=== PATIENT | male | born 1965 | race Caucasian/White ===

== ENCOUNTER 2023-09-27 09:45 | Outpatient (OUT) | payer OTHER, SELFPAY ==
[2023-09-27 12:19] LABS: Alanine Aminotransferase 23 U/L (16-63); Albumin Globulin Ratio 1.2; Alkaline Phosphatase 74 U/L (46-116); Anion Gap 13.3; Aspartate Amino Transferase 14 U/L (15-37); BUN Creatinine Ratio 18.1; Bilirubin Total 0.9 mg/dL (0.2-1.0); Calcium 9.2 mg/dL (8.5-10.1); Carbon Dioxide 26.5 mmol/L (21.0-32.0); Chloride 104 mmol/L (98-107); Chol HDL Ratio 3.1; Cholesterol 186 mg/dL (<=200); Estimated GFR (African America >60 (>=60); Estimated GFR (Non-African Ame >60 (>=60); Globulin 3.4 g/dL; Glucose 100 mg/dL (74-106); HDL Cholesterol 60 mg/dL (40-60); LDL Cholesterol Calculated 115.2 mg/dL; Potassium 3.8 mmol/L (3.5-5.1); Sodium 140 mmol/L (136-145); Total Protein 7.4 g/dL (6.4-8.2); Triglycerides 54 mg/dL (<=150); Uric Acid 5.1 mg/dL (3.5-7.2); VLDL CHOLESTEROL 10.8 mg/dL
== END 2023-09-27 09:46 | disposition home or self-care (01) ==
LOC: LAB 09:45
PROVIDERS: PCP Family Medicine; Visit Provider Family Medicine
DX: E79.0 Hyperuricemia without signs of inflammatory arthritis and tophaceous disease (principal); Z13.220 Encounter for screening for lipoid disorders; I12.9 Hypertensive chronic kidney disease with stage 1 through stage 4 chronic kidney disease, or unspecified chronic kidney disease; Z13.1 Encounter for screening for diabetes mellitus
CPT/HCPCS: 36415; 80053; 80061; 84550

== ENCOUNTER 2024-10-02 09:59 | Outpatient (OUT) | payer OTHER, SELFPAY ==
--- OUTSIDE RECORDS SUMMARY | 2024-10-02 10:04 | XMS_ITS | CCD ---
Author Organization [facility] Care Team Providers Care Belt Knife Feeder Name Role Phone TAMARA, DR ROSENBAUM Admitting Unavailable HEMEYER, DR ROSENBAUM Attending Unavailable HEMEYER, DR ROSENBAUM Primary Care Unavailable GLENNYYER, DR ROSENBAUM Admitting Unavailable HEMETORI, DR ROSENBAUM Attending Unavailable TAMARA, DR ROSENBAUM Primary Care Unavailable TAMARA, DR ROSENBAUM Consulting Unavailable Gloria Fish Unavailable NONE, XXXX Primary Care Physician Unavailab Dilshad Chaney Attending Unavailable Ilsa Mcdonald MD Primary Care Provider Ilsa Mcdonald MD Primary Care Provider Ilsa Mcdonald MD Primary Care Provider [phone] Ilsa Mcdonald MD Primary Care Provider Ilsa Mcdonald MD Primary Care Provider ILSA MCDONALD Attending ILSA Nuñez Attending Unavailable ILSA MCDONALD Attending Unavailable ILSA MCDONALD Referring Unavailable JR. STORY GEORGE C Attending Unavaila ILSA Cannon Referring Unavailable MONIQUE REA Attending Unavailable JR. STORY GEORGE C Referring Unavaila oren STORY JR., GEORGE C Attending Unavaila oren STORY JR., GEORGE C Referring Unavaila oren STORY JR., GEORGE C Attending Unavaila ble Allergies Allergy Classification Reported Allergen(s) Allergy Type Date of Onset Reaction(s) Facility (2 sources) [facility]; Translations: [nirmatrelvir] Propensity to adverse reactions to drug Eruption of skin (disorder) [facility] (19 sources) Nirmatrelvir-Rit onavir Allergy to substance 3 Rash [facility] (12 sources) Indomethacin Drug Allergy 4 [facility] Medications Current Medications Medication Drug Class(es) Dates Sig (Normalized) Sig (Original) allopurinol 300 mg oral tablet (20 sources) Xanthine Oxidase Inhibitor Start: 10-08-2023 End: 10-11-2024 take 1 tablet by mouth once daily allopurinol (Zyloprim) 300 MG tablet Indications: Hyperuricemia Take 1 tablet (300 mg) by mouth Daily 90 tablet 1 04/06/2024 10/03/2024 Active take 1 tablet by antoinette th every twenty-four hours Allopurinol 300 MG 1 tablet Orally Once a day for 30 day(s) Active colchicine 0.6 mg oral tablet (17 sources) Start: 04-14-2024 colchicine 0.6 MG tablet Indications: Hyperuricemia Take 1 tablet at first sign of gout., then take 1 tablet every hour until improvement or total of 6 tablets. 6 tablet 1 04/14/2024 Active hydrocortisone 10 mg/ml / neomycin 3.5 mg/ml / polymyxin b [id number] unt/ml otic suspension (1 source) Aminoglycoside Antibacterial, Polymyxin-class Antibacterial, Corticosteroid Start: 01-03-2024 End: 01-10-2024 hydrocortisone/octavia mycin/polymyxin B Otic Susp 4 drop(s), Otic, TID for 7 day(s), 10 mL, Refill(s) 0, [facility]/pharmacy #[id number], 184, cm, 01/03/24 12:12:00 EDT, Height/Length Dosing, 110, kg, 01/03/24 12:12:00 EDT, Weight Dosing Start Date: 01/03/24 Stop Date: 01/10/24 Status: Ordered metoprolol tartrate 25 mg oral tablet (20 sources) beta-Adrenergic Susan Start: 10-08-2023 End: 10-11-2024 take 1 tablet by mouth in the morning metoprolol tartrate (Lopressor) 25 MG tablet Indications: Benign essential hypertension (CMS/HCC) Take 1 tablet (25 mg) by mouth in the morning and 1 tablet (25 mg) before bedtime. 180 tablet 1 04/14/2024 10/11/2024 Active Metoprolol Tartrate unknown (1 source) take 1 tablet by mouth twice daily nabumetone 750 mg oral tablet (9 sources) Nonsteroidal Anti-inflammatory Drug Start: 05-13-2024 End: 06-12-2024 take 1 tablet by mouth in the morning nabumetone (Relafen) 750 MG tablet Indications: Bone spur of other site Take 1 tablet (750 mg) by mouth in the morning and 1 tablet (750 mg) before bedtime. 60 tablet 05/13/2024 06/12/2024 Active Completed/Discontinued Medications Medication Drug Class(es) Dates Sig (Normalized) Sig (Original) indomethacin 50 mg oral capsule (3 sources) Nonsteroidal Anti-inflammatory Drug Start: 04-06-2024 End: 04-16-2024 indomethacin (Indocin) 50 MG capsule Indications: Hyperuricemia Take 1 capsule (50 mg) by mouth in the morning and 1 capsule (50 mg) at noon and 1 capsule (50 mg) in the evening. Take with meals. Do all this for 10 days. 30 capsule 04/06/2024 04/16/2024 predniSONE 10 mg oral tablet (4 sources) Start: 04-19-2024 End: 05-12-2024 predniSONE (Deltasone) 10 MG tablet Indications: Allergic reaction to drug, initial encounter Every 2 day tapering dose; 5,5,4,4,3,3,2,2,1,1 ,0.5,0.5 31 tablet 04/19/2024 05/12/2024 Discontinued (Therapy completed) Start: 12-02-2022 take 1 tablet by antoinette th every twelve hours predniSONE 20 MG 1 tablet Orally bid for 5 day(s) November, Active triamcinolone acetonide 40 mg/ml injectable suspension (1 source) Corticosteroid Start: 12-02-2022 Kenalog-40 November, 40 mg Problems Active Problems Problem Classification Problem Date Documented Date Episodic/Chronic Allergic reactions (1 source) Allergic contact dermatitis due to plants, except food Episodic Chronic kidney disease (1 source) Chronic kidney disease, unspecified; Translations: [CHRONIC KIDNEY DISEASE UNSPECIFIED] Onset: 06-12-2022 Chronic Essential hypertension (20 sources) Benign essential hypertension; Translations: [Essential (primary) hypertension] Onset: 03-27-2023 04-06-2024 Chronic Hypertension with complications and secondary hypertension (20 sources) Hypertensive chronic kidney disease with stage 1 through stage 4 chronic kidney disease, or unspecified chronic kidney disease; Translations: [Hypertensive renal disease] Onset: 06-07-2022 Chronic Other circulatory disease (1 source) Elevated blood pressure; Translations: [Elevated blood pressure] Episodic Other connective tissue disease (5 sources) Muscle weakness of limb; Translations: [Other symptoms and signs involving the musculoskeletal system] 05-19-2024 Episodic Other connective tissue disease (5 sources) Pain in limb; Translations: [Pain in unspecified limb] 05-19-2024 Episodic Other connective tissue disease (2 sources) Tendinitis of extensor carpi ulnaris; Translations: [Other enthesopathies, not elsewhere classified] 07-07-2024 Episodic Other ear and sense organ disorders (1 source) Acute non-infective otitis externa; Translations: [Unspecified acute noninfective otitis externa, unspecified ear] Onset: 01-03-2024 Episodic Other nervous system disorders (2 sources) Carpal tunnel syndrome of left wrist; Translations: [Carpal tunnel syndrome, left upper limb] 05-26-2024 Chronic Other nervous system disorders (6 sources) Numbness; Translations: [Anesthesia of skin] 05-19-2024 Episodic Other nervous system disorders (5 sources) Paresthesia; Translations: [Paresthesia of skin] 05-19-2024 Episodic Other non-traumatic joint disorders (8 sources) Osteophyte of bone; Translations: [Enthesopathy, unspecified] 05-13-2024 Episodic Other non-traumatic joint disorders (8 sources) Pain of left wrist; Translations: [Pain in left wrist] 05-12-2024 Episodic Other nutritional; endocrine; and metabolic disorders (1 source) Obese class I; Translations: [Body mass index (BMI) 32.0-32.9, adult] Onset: 01-03-2024 Chronic Other nutritional; endocrine; and metabolic disorders (20 sources) Obesity caused by energy imbalance; Translations: [Other obesity due to excess calories] Onset: 03-30-2024 04-06-2024 Chronic Other nutritional; endocrine; and metabolic disorders (1 source) Hyperuricemia without signs of inflammatory arthritis and tophaceous disease; Translations: [HU W/O SIGNS IA AND TOPHACEOUS DZ] Onset: 06-12-2022 Episodic Other screening for suspected conditions (not mental disorders or infectious disease) (2 sources) Encounter for screening for lipoid disorders; Translations: [Encounter for screening for malignant neoplasm of prostate] Onset: 06-12-2022 Episodic Other upper respiratory infections (1 source) Streptococcal sore throat; Translations: [Streptococcal sore throat] Episodic Sprains and strains (4 sources) Rupture of scapholunate ligament of wrist; Translations: [Sprain of other part of left wrist and hand, initial encounter] 06-09-2024 Episodic Past or Other Problems Problem Classification Problem Date Documented Date Episodic/Chronic Genitourinary symptoms and ill-defined conditions (20 sources) Microalbuminuria; Translations: [Proteinuria, unspecified] Onset: 03-27-2023 04-06-2024 Episodic Other and unspecified benign neoplasm (19 sources) Dermatofibroma of left upper limb; Translations: [Other benign neoplasm of skin of left upper limb, including shoulder] Onset: 03-27-2023 Resolved: 03-30-2024 03-30-2024 Episodic Other diseases of veins and lymphatics (19 sources) Vascular insufficiency; Translations: [Venous insufficiency (chronic) (peripheral)] Onset: 03-27-2023 03-27-2023 Episodic Other nutritional; endocrine; and metabolic disorders (19 sources) Morbid obesity; Translations: [Morbid (severe) obesity due to excess calories] Onset: 03-27-2023 Resolved: 03-30-2024 03-30-2024 Chronic Other nutritional; endocrine; and metabolic disorders (20 sources) Hyperuricemia; Translations: [Hyperuricemia without signs of inflammatory arthritis and tophaceous disease] Onset: 03-27-2023 04-06-2024 Episodic Results Test Name Value Interpretation Reference Range Facil ity MR WRIST LEFT WO IV CONTRAST on 06-28-2024 MR WRIST LEFT WO IV CONTRAST EXAM: MR WRIST LEFT WO IV CONTRAST HISTORY: Left wrist pain. Scapholunate ligament tear. TECHNIQUE: Multiplanar multisequence MRI of the wrist was performed without contrast COMPARISON: Wrist radiographs May 12, 2024 FINDINGS: Scapholunate and lunotriquetral ligaments are intact. Full-thickness tear of the styloid and foveal components of the triangular fibrocartilage complex. Articular disc of the TFCC is intact. Visualized flexor and extensor tendons are intact. A thin hyperintense T2 structure deep to the flexor tendons at the level of the distal radius measures approximately 3 x 0.8 x 3 cm. This is nonspecific and does not surround the flexor tendons. Differential diagnosis includes escaped joint fluid from joint effusion or ganglion. The ulna is internally rotated and the extensor carpi ulnaris tendon is laterally subluxed. Mild regional soft tissue edema. Median nerve is of normal signal and morphology. Mild to moderate degenerative changes of the wrist. Small joint effusion at the articulation of the triquetrum with pisiform with 4 mm loose body located along the proximal margin of the pisiform. IMPRESSION: Scapholunate ligament is intact. Full-thickness tear of the styloid and foveal components of the triangular fibrocartilage complex. Extensor carpi ulnaris subsheath tear with lateral subluxation of the extensor carpi ulnaris tendon. Degenerative changes of the wrist. ELECTRONICALLY SIGNED BY: Faizan Johnson, DO Normal Not Available EMG 1 Extremeityon EMG/ NCS LUE Minimal [facility] 7-8 Nerveson 05-26-2024 EMG/ NCS LUE Minimal left carpal tunnel [facility] XR WRIST 1-2 VIEWS LEFTon XR WRIST 1-2 VIEWS LEFT EXAM: XR - LT WRIST 2 VIEWS REASON FOR STUDY: Left wrist pain COMPARISON: None FINDINGS: 2 views The wrist joint alignment is satisfactory. There is radiocarpal joint space narrowing with some spurring of the scaphoid bone posteriorly and a small corticated ossicle posteriorly at the wrist joint. There is no fracture. Mild diffuse soft tissue swelling. IMPRESSION: Mild wrist soft tissue swelling and degenerative change. No acute fracture. Dictated on: 05/12/2024 4:52 PM This report has been electronically signed and approved by the interpreting Radiologist. Electronically Signed Brendan Calzada D.O. 2024-05-12 16:53:21 Normal Not Available XR Wrist - left 2 Viewson EXAM: XR - LT WRIST 2 VIEWS REASON FOR STUDY: Left wrist pain COMPARISON: None FINDINGS: 2 views The wrist joint alignment is satisfactory. There is radiocarpal joint space narrowing with some spurring of the scaphoid bone posteriorly and a small corticated ossicle posteriorly at the wrist joint. There is no fracture. Mild diffuse soft tissue swelling. IMPRESSION: Mild wrist soft tissue swelling and degenerative change. No acute fracture. Dictated on: 05/12/2024 4:52 PM This report has been electronically signed and approved by the interpreting Radiologist. Electronically Signed Brendan Calzada D.O. 2024-05-12 16:53:21 IMAGING Brendan Calzada DO - 05/12/2024 EXAM: XR - LT WRIST 2 VIEWS REASON FOR STUDY: Left wrist pain COMPARISON: None FINDINGS: 2 views The wrist joint alignment is satisfactory. There is radiocarpal joint space narrowing with some spurring of the scaphoid bone posteriorly and a small corticated ossicle posteriorly at the wrist joint. There is no fracture. Mild diffuse soft tissue swelling. IMPRESSION: Mild wrist soft tissue swelling and degenerative change. No acute fracture. Dictated on: 05/12/2024 4:52 PM This report has been electronically signed and approved by the interpreting Radiologist. Electronically Signed Brendan Calzada D.O. 2024-05-12 16:53:21 [facility] Radiology Study observation (narrative) [facility] XR Wrist - left 2 ViewsOrder ed By: Brendan Calzada on 05-12-2024 [facility] Signifyd[facility] Work Phone: Ambulatory Visit Summaryon 0 01-03-2024 Ambulatory Visit Summary WANDER STERN :1965 Visit Date:01/03/2024 Ambulatory Visit Instructions Your Diagnosis Acute otitis externa BMI 32.0-32.9,adult Your Care Team Attending Physician - Sherman SOTO, Dilshad Aden Primary Care Physician - NONE, XXXX This Is Your Medications List allopurinol (allopurinol 300 mg Tab) hydrocortisone/neomyc in/polymyxin B otic (hydrocortisone/neomy yunier/polymyxin B Otic Susp) metoprolol (Lopressor 25 mg oral tablet) Discharge Vitals Temperature (Oral) 36.4 ?C Heart Rate (Peripheral) 67 Blood Pressure 132/84 Height 184 cm Height 72 in Weight 110 kg Weight 242 lb BMI 32.49 Medications What How Much When Instructions New hydrocortisone/ neomycin/ polymyxin B otic (hydrocortisone/ neomycin/ polymyxin B Otic Susp) 4 Drops Otic 3 times a day Duration: 7 Days Pickup at [facility]/pharmacy #[id number] Unchanged allopurinol (allopurinol 300 mg Tab) Unchanged metoprolol (Lopressor 25 mg oral tablet) Pharmacy Information [facility]/pharmacy #[id number]: [address], [place] [id number] [phone] Allergies Paxlovid (Rash) Patient Survey You may receive a survey via text or e-mail asking about your office visit. Please share your experience with us by completing your survey. We appreciate your feedback and thank you for choosing us for your care. Normal [facility] Family Medicine Office/Clini c Noteon 01-03-2024 Family Medicine Office/Clinic Note Chief Complaint left ear feels plugged HPI Staff 58 year old male presents with left ear feels plugged or like there's water in it since yesterday after swimming used a qtip yesterday after this began denies pain History of Present Illness Patient is a 58-year-old male who comes to the office today due to left ear issues. States that he went swimming yesterday and his left ear been feeling clogged since that time. Also has a little bit of pain to left ear. He used a Q-tip in ear and only got out a little bit of wax. States that it did hurt mildly to use a Q-tip. Right ear feels fine with no issues. He denies URI symptoms such as runny nose, cough, sore throat, headache. No drainage from ear. Does have decreased hearing out of the left ear. Review of Systems PHQ Score Initial Depression Screen Score: 0 SCORE ROS negative unless otherwise stated in HPI. Physical Exam Vitals & Measurements T: 36.4 ?C(Oral) HR: 67(Peripheral) BP: 132/84 SpO2: 97% HT: 72 in HT: 184 cm WT: 110 kg WT: 242 lb BMI: 32.49 General: alert, no acute distress Skin: warm, dry intact Head: atraumatic, normocephalic Neck: Trachea midline, no cervical lymphadenopathy Eye: normal conjunctiva, sclera clear ENMT: oral mucosa moist throat: No erythema, no swelling, no drainage. right ear: EAC clear, TM shows no erythema or bulging. Left ear: EAC is obstructed by wax. Leading up to wax there is some erythema to the EAC with mild swelling. TM could not be viewed. Mild pain to palpation of patient's tragus of left ear Cardiovascular: regular rate and rhythm, nomurmur Respiratory: Lungs CTA, respirations non labored Neurological: oriented x 4, LOC appropriate for age, speech normal Psychiatric: cooperative, affect appropriate for age, Assessment/Plan 1. Acute otitis externa (H60.509: Unspecified acute noninfective otitis externa, unspecified ear) Patient has acute otitis externa of left ear. Went swimming yesterday has been feeling clogged and is a little painful since that time. Patient does have cerumen in ear, but is also erythematous and mildly swollen. Will treat as otitis externa with Cortisporin drops at this time. But patient may need to have ears cleaned out as well to completely relieve sensation of being clogged-however want to wait until infection is cleared. Follow-up as needed if symptoms do not resolve 2. BMI 32.0-32.9,adult (Z68.32: Body mass index [BMI] 32.0-32.9, adult) Orders: hydrocortisone/neomyc in/polymyxin B otic, 4 drop(s), Otic, TID for 7 day(s), 10 mL, Refill(s) 0, [facility]pharmacy #[id number], 184, cm, 01/03/24 12:12:00 EDT, Height/Length Dosing, 110, kg, 01/03/24 12:12:00 EDT, Weight Dosing Follow-up No qualifying data available Problem List/Past Medical History Ongoing No qualifying data Historical No qualifying data Medications allopurinol 300 mg Tab hydrocortisone/neomyc in/polymyxin B Otic Susp, 4 drop(s), Otic, TID Lopressor 25 mg oral tablet Allergies Paxlovid (Rash) Social History Tobacco Never (less than 100 in lifetime) Tobacco Use:. Never Smokeless Tobacco Use:. Household tobacco concerns: No., 01/03/2024 Immunizations Vaccine Date Status influenza virus vaccine, inactivated 04/25/2021 Recorded influenza virus vaccine, inactivated 04/13/2020 Recorded influenza virus vaccine, inactivated 06/09/2018 Recorded Normal [facility] Comment on above: Result Comment: Elec tronically Signed By: Sherman SOTO, iDlshad Aden\.cindy\Date and Time Signed: 01/03/24 12:38 EDT LIPID PROFILEon 06-07-2022 CHOL-HDL RATIO NORM SEE BELOW Normal [facility] Comment on above: Result Comment: 3.3 - 4.4 LOW RISK 4.4 - 7.1 AVERAGE RISK 7.1 - 11.0 MODERATE RISK >11.0 HIGH RISK Performed By: #### C MP, URIC, LIPID #### [facility] [address] [address] [address] Emilia Padilla Cholesterol [Mass/Vol] 189 mg/dL Normal <=200 [facility] Comment on above: Performed By: #### C MP, URIC, LIPID #### [facility] [address] [address] [address] Emilia Padilla Cholesterol in HDL [Mass/Vol] 51 mg/dL Normal 40-60 [facility] Comment on above: Performed By: #### C MP, URIC, LIPID #### [facility] [address] [address] [address] Emilia Padilla Cholesterol in LDL [Mass/Vol] 120.2 mg/dL Normal [facility] Comment on above: Performed By: #### C MP, URIC, LIPID #### [facility] [address] [address] [address] Emilia Padilla Cholesterol.total/ Cholesterol in HDL [Mass ratio] 3.7 {ratio} Normal [facility] Comment on above: Performed By: #### C MP, URIC, LIPID #### [facility] [address] [address] [address] Emilia Padilla HDL NORMAL > or = 60 mg/dl - LO W CARDIOVASCULAR RISK <40 mg/dl - HIGH CARDIOVASCULAR RISK Normal [facility] Comment on above: Performed By: #### C MP, URIC, LIPID #### [facility] [address] [address] [address] Emilia Padilla LDL CALC NORMAL SEE BELOW Normal [facility] Comment on above: Result Comment: <100 mg/dl OPTIMAL 100 - 129 mg/dl NEAR OR ABOVE OPTIMAL 130 - 159 mg/dl BORDERLINE HIGH 160 - 189 mg/dl HIGH >190 mg/dl VERY HIGH Performed By: #### C MP, URIC, LIPID #### [facility] [address] [address] [address] Emilia Padilla Triglyceride [Mass/Vol] 89 mg/dL Normal <=150 [facility] Comment on above: Performed By: #### C MP, URIC, LIPID #### [facility] [address] [address] [address] Emilia Padilla VLDL CALC 17.8 mg/dL Normal [facility] Comment on above: Performed By: #### C MP, URIC, LIPID #### [facility] [address] [address] [address] Emilia Padilla PROF 14(COMP METB)on 022 Albumin [Mass/Vol] 4.0 g/dL Normal 3.4-5.0 [facility] Comment on above: Performed By: #### C MP, URIC, LIPID #### [facility] [address] [place] [address] Dr. Emilia Padilla Albumin/Globulin [Mass ratio] 1.2 {ratio} Normal [facility] Comment on above: Performed By: #### C MP, URIC, LIPID #### [facility] [address] [place] [address] Dr. Emilia Padilla ALP [Catalytic activity/Vol] 81 U/L Normal 46-116 [facility] Comment on above: Performed By: #### C MP, URIC, LIPID #### [facility] [address] [place] [address] Dr. Emilia Padilla ALT [Catalytic activity/Vol] 56 U/L Normal 16-63 [facility] Comment on above: Performed By: #### C MP, URIC, LIPID #### [facility] [address] [address] [address] Emilia Padilla Anion gap [Moles/Vol] 9.2 mmol/L Normal [facility] Comment on above: Performed By: #### C MP, URIC, LIPID #### [facility] [address] [place] [address] Dr. Emilia Padilla AST [Catalytic activity/Vol] 33 U/L Normal 15-37 [facility] Comment on above: Performed By: #### C MP, URIC, LIPID #### [facility] [address] [address] [address] Emilia Padilla Bilirubin [Mass/Vol] 1.0 mg/dL Normal 0.2-1.0 [facility] Comment on above: Performed By: #### C MP, URIC, LIPID #### [facility] [address] [address] [address] Emilia Padilla Calcium [Mass/Vol] 8.9 mg/dL Normal 8.5-10.1 [facility] Comment on above: Performed By: #### C MP, URIC, LIPID #### [facility] [address] [address] [address] Emilia Padilla Chloride [Moles/Vol] 103 mmol/L Normal 98-107 [facility] Comment on above: Performed By: #### C MP, URIC, LIPID #### [facility] [address] [place] [address] Dr. Emilia Padilla CO2 [Moles/Vol] 28.7 mmol/L Normal 21.0-32.0 [facility] Comment on above: Performed By: #### C MP, URIC, LIPID #### [facility] [address] [place] [address] Dr. Emilia Padilla Creatinine [Mass/Vol] 0.84 mg/dL Normal 0.70-1.30 [facility] Comment on above: Performed By: #### C MP, URIC, LIPID #### [facility] [address] [place] [address] Dr. Emilia Padilla EGFR-AF CENTRAL AFRICAN >60 Normal >=60 [facility] Comment on above: Performed By: #### C MP, URIC, LIPID #### [facility] [address] [place] [address] Dr. Emilia Padilla EGFR-NON AF CENTRAL AFRICAN >60 Normal >=60 [facility] Comment on above: Performed By: #### C MP, URIC, LIPID #### [facility] [address] [place] [address] Dr. Emilia Padilla Globulin (S) [Mass/Vol] 3.4 g/dL Normal [facility] Comment on above: Performed By: #### C MP, URIC, LIPID #### [facility] [address] [place] [address] Dr. Emilia Padilla Glucose [Mass/Vol] 104 mg/dL Normal 74-106 [facility] Comment on above: Performed By: #### C MP, URIC, LIPID #### [facility] [address] [place] [address] Dr. Emilia Padilla Potassium [Moles/Vol] 3.9 mmol/L Normal 3.5-5.1 [facility] Comment on above: Performed By: #### C MP, URIC, LIPID #### [facility] [address] [place] [address] Dr. Emilia Padilla Protein [Mass/Vol] 7.4 g/dL Normal 6.4-8.2 [facility] Comment on above: Performed By: #### C MP, URIC, LIPID #### [facility] [address] [place] [address] Dr. Emilia Padilla Sodium [Moles/Vol] 137 mmol/L Normal 136-145 [facility] Comment on above: Performed By: #### C MP, URIC, LIPID #### [facility] [address] [place] [address] Dr. Emilia Padilla Urea nitrogen [Mass/Vol] 11.0 mg/dL Normal 7.0-18.0 [facility] Comment on above: Performed By: #### C MP, URIC, LIPID #### [facility] [address] [place] [address] Dr. Emilia Padilla Urea nitrogen/Creatinin e [Mass ratio] 13.1 mg/mg Normal [facility] Comment on above: Performed By: #### C MP, URIC, LIPID #### [facility] [address] [place] [address] Dr. Emilia Padilla URIC ACID SERUMon 06-07-2022 Urate [Mass/Vol] 5.2 mg/dL Normal 3.5-7.2 [facility] Comment on above: Performed By: #### C MP, URIC, LIPID #### [facility] [address] [place] [address] Dr. Emilia Padilla Vital Signs Date Time Vital Sign Value Performing Clinician Facility 05-19-2024 08:35-0400 Body height 182.9 cm Jr. Stepanic DO Work Phone: [facility] 05-19-2024 08:35-0400 Body mass index (BMI) [Ratio] 31.87 kg/m2 Jr. Stepanic DO Work Phone: [facility] 05-19-2024 08:35-0400 Body weight 106.59 kg Jr. Stepanic DO Work Phone: [facility] 05-12-2024 15:08-0400 Body height 182.9 cm Ilsa Mcdonald MD Work Phone: [facility] 05-12-2024 15:08-0400 Body mass index (BMI) [Ratio] 33.09 kg/m2 Ilsa Mcdonald MD Work Phone: [facility] 05-12-2024 15:08-0400 Body weight 110.68 kg Ilsa Mcdonald MD Work Phone: [facility] 04-14-2024 15:45-0400 Body height 182.9 cm Ilsa Mcdonald MD Work Phone: [facility] 04-14-2024 15:45-0400 Body mass index (BMI) [Ratio] 33.09 kg/m2 Ilsa Mcdonald MD Work Phone: [facility] 04-14-2024 15:45-0400 Body weight 110.68 kg Ilsa Mcdonald MD Work Phone: [facility] 04-14-2024 15:45-0400 Diastolic blood pressure 78 mm[Hg] Ilsa Mcdonald MD Work Phone: [facility] 04-14-2024 15:45-0400 Heart rate 58 /min Ilsa Mcdonald MD Work Phone: [facility] 04-14-2024 15:45-0400 SaO2% (BldA) [Mass fraction] 97 % Ilsa Mcdonald MD Work Phone: [facility] 04-14-2024 15:45-0400 Systolic blood pressure 128 mm[Hg] Ilsa Mcdonald MD Work Phone: [facility] 01-03-2024 12:11-0400 Blood Pressure Location Dilshad Whitaker [facility] 01-03-2024 12:11-0400 Body temperature 97.52 [degF] Dilshad Whitaker [facility] 01-03-2024 12:11-0400 Diastolic blood pressure 84 mm[Hg] Dilshad Whitaker [facility] 01-03-2024 12:11-0400 Heart rate 67 /min Dilshad Whitaker [facility] 01-03-2024 12:11-0400 SaO2% (BldA) [Mass fraction] 97 % Dilshad Whitaker [facility] 01-03-2024 12:11-0400 Systolic blood pressure 132 mm[Hg] Dilshad Whitaker [facility] 12-02-2022 15:40-0400 Body height 182.88 cm Gloria Fish Other [facility] Other 12-02-2022 15:40-0400 Body mass index (BMI) [Ratio] 34.23 kg/m2 Gloria Fish Other [facility] Other 12-02-2022 15:40-0400 Body temperature 97.4 [degF] Gloria Fish Other [facility] Other 12-02-2022 15:40-0400 Body weight 114.49 kg Gloria Fish Other [facility] Other 12-02-2022 15:40-0400 Diastolic blood pressure 96 mm[Hg] Gloria Fish Other [facility] Other 12-02-2022 15:40-0400 Respiratory rate 18 /min Gloria Fish Other [facility] Other 12-02-2022 15:40-0400 SaO2% (BldA) [Mass fraction] 99 % Gloria Fish Other [facility] Other 12-02-2022 15:40-0400 Systolic blood pressure 160 mm[Hg] Gloria Fish Other [facility] Other Encounters Encounter Date Encounter Type Care Provider Facility Start: 07-07-2024 End: 07-07-2024 ambulatory PAULA ARIZA Not Available Start: 07-07-2024 End: 07-07-2024 Office outpatient visit 25 minutes Jr. Paula Story DO Work Phone: [facility] Comment on above: Left wrist pain (Viola selvin Dx); Extensor carpi ulnaris tendinitis Start: 07-07-2024 End: 07-07-2024 Bamboo flowsheet Jr. Paula Story DO Work Phone: [facility] Start: 07-07-2024 End: 07-07-2024 Bamboo flowsheet Jr. Paula Story DO Work Phone: [facility] Start: 06-28-2024 End: 06-28-2024 ambulatory PAULA ARIZA Not Available Start: 06-09-2024 End: 06-09-2024 Office outpatient visit 25 minutes Jr. Paula Story DO Work Phone: [facility] Comment on above: Left wrist pain (Viola selvin Dx); Bone spur of other site; Tear of left scapholunate ligament, initial encounter Start: 06-09-2024 End: 06-09-2024 ambulatory PAULA ARIZA Not Available Start: 06-09-2024 End: 06-09-2024 Bamboo flowsheet Paula Story DO Work Phone: [facility] Start: 06-09-2024 End: 06-09-2024 Bamboo flowsheet Jr. Paula Story DO Work Phone: [facility] Start: 05-26-2024 End: 05-26-2024 Patient encounter procedure Monique Hopkinsner DO Work Phone: [facility] Comment on above: Left carpal tunnel s yndrome (Primary Dx); Limb weakness; Numbness; Paresthesia; Pain in extremity, unspecified extremity Start: 05-26-2024 End: 05-26-2024 ambulatory MONIQUE ÁLVARO Not Available Start: 05-26-2024 End: 05-26-2024 Bamboo flowsheet Monique Álvaro DO Work Phone: [facility] Start: 05-26-2024 End: 05-26-2024 Bamboo flowsheet Monique Rea DO Work Phone: [facility] Start: 05-19-2024 End: 05-19-2024 Bamboo flowsheet Amparo Paula Story DO Work Phone: [facility] Start: 05-19-2024 End: 05-19-2024 Bamboo flowsheet Paula Latham Stepkaty DO Work Phone: [facility] Start: 05-19-2024 End: 05-19-2024 Office consultation new/estab patient 40 min Amparo Paula Latham Stepkaty DO Work Phone: [facility] Comment on above: Limb weakness (Prima ry Dx); Bone spur of other site; Numbness; Paresthesia; Pain in extremity, unspecified extremity Start: 05-19-2024 End: 05-19-2024 ambulatory PAULA ARIZA Not Available Start: 05-13-2024 End: 05-13-2024 Telephone encounter Ilsa Mcdonald MD Work Phone: [facility] Comment on above: Results Start: 05-12-2024 End: 05-12-2024 Office outpatient visit 15 minutes Ilsa Mcdonald MD Work Phone: [facility] Comment on above: Left wrist pain (Viola selvin Dx) Start: 05-12-2024 End: 05-12-2024 ambulatory ILSA MCDONALD Not Available Start: 05-12-2024 End: 05-12-2024 Bamboo flowsheet Ilsa Mcdonald MD Work Phone: [facility] Start: 05-12-2024 End: 05-12-2024 Bamboo flowsheet Ilsa Mcdonald MD Work Phone: [facility] Start: 04-14-2024 End: 04-14-2024 Office outpatient visit 25 minutes Ilsa Mcdonald MD Work Phone: [facility] Comment on above: Benign essential hyp ertension (CMS/HCC); Hypertensive nephropathy (CMS/HCC); Microalbuminuria; Hyperuricemia; Non morbid obesity due to excess calories Start: 04-14-2024 End: 04-14-2024 ambulatory ILSA MCDONALD Not Available Start: 04-14-2024 End: 04-14-2024 Bamboo flowsheet Ilsa Mcdonald MD Work Phone: [facility] Start: 04-14-2024 End: 04-14-2024 Bamboo flowsheet Ilsa Mcdonald MD Work Phone: [facility] Start: 04-06-2024 End: 04-06-2024 Telephone encounter Ilsa Mcdonald MD Work Phone: [facility] Start: 01-03-2024 End: 01-03-2024 ambulatory Dilshad Whitaker Facility: [place] Start: 01-03-2024 End: 01-03-2024 Patient encounter procedure Dilshad Whitaker [facility] Start: 10-08-2023 End: 10-08-2023 ambulatory ILSA MCDONALD Not Available Start: 12-02-2022 End: 12-02-2022 ambulatory Gloria Fish Other [facility] Other Start: 12-02-2022 Office outpatient vi sit 15 minutes Gloria Fish [facility] [place] Start: 06-07-2022 End: 06-08-[address] ILSA MCDONALD Facility:[facility] Start: 03-15-[address] ILSA MCDONALD Facil ity:[facility] Procedures Date Procedure Procedure Detail Performing Clinician Start: 05-26-2024 End: 05-26-2024 Needle emg ea extremty w/paraspinl area complete Monique Rea DO Work Phone: Start: 06-07-[address] ILSA MCDONALD Comment on above: Performed By: #### P [facility] #### [facility] [address] [place] [address] Dr. Emilia Padilla Start: 04-28-2008 Colonoscopy Ilsa jacobsen MD Work Phone: Plan of Treatment Date Care Activity Detail Author Start: 01-04-2027 Screening for malign ant neoplasm of colon [facility] Start: 10-06-2024 End: 10-06-2024 Patient encounter procedure [facility] Start: 09-14-2024 End: 04-14-2025 Comprehensive metabolic 2000 panel - Serum or Plasma Comprehensive metabolic panel Lab Routine Benign essential hypertension (CMS/HCC) Hypertensive nephropathy (CMS/HCC) Expected: 09/14/2024, Expires: 04/14/2025 [facility] Work Phone: Comment on above: Expected: 09/14/2024 , Expires: 04/14/2025 Start: 09-14-2024 End: 04-14-2025 Lipid 1996 panel - Serum or Plasma Lipid panel Lab Routine Benign essential hypertension (CMS/HCC) Hypertensive nephropathy (CMS/HCC) Expected: 09/14/2024, Expires: 04/14/2025 [facility] Comment on above: Expected: 09/14/2024 , Expires: 04/14/2025 Start: 09-14-2024 End: 04-14-2025 Urate [Mass/volume] in Serum or Plasma Uric acid Lab Routine Hyperuricemia Expected: 09/14/2024, Expires: 04/14/2025 [facility] Comment on above: Expected: 09/14/2024 , Expires: 04/14/2025 Start: 07-07-2024 End: 07-07-2024 Patient encounter procedure 07/07/2024 2:45 PM EST Office Visit [facility] [address] [place] [id number] Jr. Paula Stroy, DO [address] [place] [address] [facility] Start: 06-09-2024 End: 06-09-2024 Patient encounter procedure [facility] Comment on above: Arrived Start: 06-09-2024 End: 06-09-2025 MR Wrist - left WO contrast MR wrist left wo IV contrast Imaging Routine Left wrist pain Bone spur of other site Tear of left scapholunate ligament, initial encounter Expected: 06/09/2024 (Approximate), Expires: 06/09/2025 [facility] Work Phone: Comment on above: Expected: 06/09/2024 (Approximate), Expires: 06/09/2025 Start: 05-26-2024 End: 05-26-2024 Patient encounter procedure [facility] Comment on above: Arrived Start: 05-19-2024 End: 05-19-2025 EMG AND NERVE CONDUCTION STUDY EMG AND NERVE CONDUCTION STUDY Neurology Routine Limb weakness Numbness Paresthesia Pain in extremity, unspecified extremity Expected: 05/19/2024 (Approximate), Expires: 05/19/2025 [facility] Work Phone: Comment on above: Expected: 05/19/2024 (Approximate), Expires: 05/19/2025 Start: 05-19-2024 End: 05-19-2024 Patient encounter procedure 05/19/2024 8:30 AM EDT Office Visit [facility] [address] [place] [address] Jr. Paula Story, DO [address] [place] [address] Bone spur of other site [facility] Comment on above: Bone spur of other s ite Start: 05-12-2024 End: 05-12-2024 Patient encounter procedure 05/12/2024 3:15 PM EDT Office Visit [facility] [address] [place] [address] Ilsa Mcdonald MD [address] [place] [address] (Fax) Arrived [facility] Comment on above: Arrived Start: 04-14-2024 End: 04-14-2024 Patient encounter procedure [facility] Comment on above: Benign essential hyp ertension (CMS/HCC); Hypertensive nephropathy (CMS/HCC); Microalbuminuria; Hyperuricemia; Non morbid obesity due to excess calories Start: 03-21-2024 Influenza vaccination Influenza Vacc ine (#1) [facility] Start: 04-28-2018 Screening for malign ant neoplasm of colon Colonoscopy [facility] Start: 1965 Screening for malign ant neoplasm of colon [facility] Immunizations Immunization Date Immunization Notes Care Provider Fa cility 04-25-2021 influenza virus vaccine, unspecified formulation Dilshad Whitaker [facility] 04-25-2021 influenza, seasonal, injectable Ilsa Mcdonald MD Work Phone: [facility] 04-13-2020 influenza virus vaccine, unspecified formulation Dilshad Whitaker [facility] 04-13-2020 influenza, injectabl e, quadrivalent, preservative free Ilsa Mcdonald MD Work Phone: [facility] 06-09-2018 influenza virus vaccine, unspecified formulation Dilshad Whitaker [facility] 06-09-2018 influenza, injectabl e, quadrivalent, preservative free Ilsa Mcdonald MD Work Phone: [facility] Payers Date Payer Category Payer Managed Care HMO (unspecified) [id number] 2023 Private Health Insurance [id number] 1965 Unknown [id number] [id number] 1965 Unknown [id number] 2.16.84 [id number] 1966 Unknown [id number] 1966 Unknown [id number] 1966 Unknown [id number] 1966 Unknown [id number] 1966 Unknown [id number] 1966 Unknown [id number] 1966 Unknown [id number] 1966 Unknown [id number] 1966 Unknown [id number] 1966 Unknown [id number] 1958 Private Health Insurance [id number] 1958 Self-pay Social History Date Type Detail Facility Unknown if ever smoked [facility] Other Start: 03-20-2023 End: 10-08-2023 Sex Assigned At [facility] Start: 10-08-2023 End: 01-03-2024 Tobacco smoking status Never smoked tobacco (finding) [facility] Tobacco smoking status Never [facility] Start: 10-08-2023 Tobacco use and exposure Former smokeless tobacco user [facility] End: 10-20-2011 History of tobacco use Snuff User [facility] Start: 10-08-2023 End: 04-14-2024 Alcoholic beverage intake Current drinker of alcohol (finding) [facility] Start: 03-20-2023 End: 04-14-2024 Alcoholic beverage intake [facility] Within the last year , have you been afraid of your partner or ex-partner? No [facility] Do you belong to any clubs or organizations such as catholic groups, unions, [employer] or athletic groups, or school groups? Yes [facility] Are you now , , , , never or living with a partner? [facility] How often to you hav e a drink containing alcohol? 2-3 time sa week [facility] How many standard dr inks containing alcohol do you have on a typical day? 5 or 6 [facility] How often do you hav e 6 or more drinks on 1 occasion? Monthly [facility] How hard is it for y ou to pay for the very basics like food, housing, medical care, and heating Not very hard [facility] Do you feel stress - tense, restless, nervous, or anxious, or unable to sleep at night because your mind is troubled all the time - these days [OSQ] Not at all [facility] The food that (I/we) bought just didn't last, and (I/we) didn't have money to get more. Never true [facility] Start: 1965 Sex assigned at Not on file [facility] Functional Status Date Assessment Result Facility 01-03-2024 Functional Status N/A [facility] Clinical Notes 12-02-2022 to 07-07-2024 . DO Juliana Reid 07/07/2024 2:45 PM ESTJr. Paula Story, DO - 06/09/2024 3:00 PM MANUELATomasz Keller, ARRT - 05/26/2024 3:30 PM MANUELAJrAmparo Paula Navarrokaty, DO - 05/19/2024 8:30 AM EDT Note Date & Type Note Facility 07-07-2024 History of Presen t illness Narrative Images from the original note were not included. HISTORY OF PRESENT ILLNESS: EST PT Wander Flowers is an 59 y.o. @ male. (EST PT) RECHECK (L) WRIST ; HERE FOR MRI RESULTS 07/08/24 IN [facility]YS 05/12/24 IN [facility] MRI 07/08/24 IN [facility] (L) UE EMG 05/26/24 @ [facility] S/P PREDNISONE TAPER 04/19/24 - PCP ; TEMP RELIEF NO CORTISONE INJ NO PHYSICAL THERAPY NO PAIN MGMT NOTES CONSTANT ACHINESS ; WORSE WITH ACTIVITY / MOVEMENT - STATES HE AVOIDS LIFTING WEIGHTS. NOTES FULL / PAINFUL ROM ; SOME WEAKNESS WHEN GRIPPING. DENIES ANY SWELLING ; CONTINUES TO HAVE SOME N/T IN HIS ENTIRE HAND - WAKES HS. TAKING IBUPROFEN PRN / VOLTAREN GEL - DENIES RELIEF ; HAS RELAFEN RX BUT HAS NOT TRIED YET. ALLERGIES: Allergies Allergen Reactions Indomethacin Rash Paxlovid [Nirmatrelvir-Ritonavir] Rash HOME MEDICATIONS: Current Outpatient Medications Medication Instructions allopurinol (ZYLOPRIM) 300 mg, Oral, Daily colchicine 0.6 MG tablet Take 1 tablet at first sign of gout., then take 1 tablet every hour until improvement or total of 6 tablets. metoprolol tartrate (LOPRESSOR) 25 mg, Oral, 2 times daily PHYSICAL EXAM: Hand/Wrist Musculoskeletal Exam Inspection Left Left hand/wrist inspection is normal. Erythema: none Ecchymosis: none Edema: none Deformity: none Palpation Left Left hand palpation is normal. Palpation additional comments: DENIES PAIN TO PALPATION Triangular fibrocartilage and extensor carpi ulnaris Range of Motion Left Hand Left hand range of motion is normal. Range of motion additional comments: ABLE TO MAKE FULL FIST Positive Doll's maneuver Strength Left Hand Left hand strength is normal. Strength additional comments: 5/5 EQUAL [employer] Neurovascular Left Left neurovascular exam is normal. Radial pulse: normal and 2+ Capillary refill: <3 sec General Constitutional: appears stated age Labored breathing: no Neurological: alert and oriented x3 Skin: intact Lymphadenopathy: none Vitals: There is no height or weight on file to calculate BMI. Tobacco Use: Medium Risk (07/07/2024) Patient History Smoking Tobacco Use: Never Smokeless Tobacco Use: Former Passive Exposure: Not on file Alcohol Use: Alcohol Misuse (03/20/2023) AUDIT-C Frequency of Alcohol Consumption: 2-3 times a week Average Number of Drinks: 5 or 6 Frequency of Binge Drinking: Monthly IMAGING: Procedures No orders of the defined types were placed in this encounter. ASSESSMENT: ICD-10-CM 1. Left wrist pain M25.532 2. Extensor carpi ulnaris tendinitis M77.8 PLAN:We have discussed his case with him at length. We have recommended an appointment with Dr. Adrian for triangulo-fibrocartilage tear and subluxation of the ECU. We have discussed his restrictions and home exercise program. We'll see him back on a when necessary basis. Scapholunate ligament is intact. Full-thickness tear of the styloid and foveal components of the triangular fibrocartilage complex. Extensor carpi ulnaris jim tear with lateral subluxation of the extensor carpi ulnaris tendon. Degenerative changes of the wrist. Probably recommend hand surgery consult. Questions answered in laymen terms at the bedside. The diagnosis, home exercise plan and any ongoing restrictions/ recommendations reviewed. If unable to be reached in office, I recommend evaluation at nearest Emergency Room if any symptoms worsened or new symptoms develop for requiring urgent evaluation. documented in this encounter [facility] 06-09-2024 History of Presen t illness Narrative Images from the original note were not included. HISTORY OF PRESENT ILLNESS: EST PT Wander Flowers is an 59 y.o. @ male. (EST PT) RECHECK (L) WRIST ; HERE FOR (L) UE EMG RESULTS 05/26/24 @ [facility] XRAYS 05/12/24 IN [facility] NO MRI (L) UE EMG 05/26/24 @ [facility] S/P PREDNISONE TAPER 04/19/24 - PCP ; TEMP RELIEF NO CORTISONE INJ NO PHYSICAL THERAPY NO PAIN MGMT ? CONTINUES TO HAVE INTERMITTENT DISCOMFORT ; OCCURS RANDOMLY. NOTES FULL ROM ; SOME WEAKNESS WHEN GRIPPING. DENIES ANY SWELLING ; CONTINUES TO HAVE SOME N/T IN HIS ENTIRE HAND - WAKES HS. TAKING IBUPROFEN PRN / VOLTAREN GEL - DENIES RELIEF ; HAS RELAFEN RX BUT HAS NOT TRIED YET. ALLERGIES: Allergies Allergen Reactions Indomethacin Rash Paxlovid [Nirmatrelvir-Ritonavir] Rash HOME MEDICATIONS: Current Outpatient Medications Medication Instructions allopurinol (ZYLOPRIM) 300 mg, Oral, Daily colchicine 0.6 MG tablet Take 1 tablet at first sign of gout., then take 1 tablet every hour until improvement or total of 6 tablets. metoprolol tartrate (LOPRESSOR) 25 mg, Oral, 2 times daily nabumetone (RELAFEN) 750 mg, Oral, 2 times daily PHYSICAL EXAM: Hand/Wrist Musculoskeletal Exam Inspection Left Left hand/wrist inspection is normal. Erythema: none Ecchymosis: none Edema: none Deformity: none Palpation Left Left hand palpation is normal. Palpation additional comments: DENIES PAIN TO PALPATION OF HAND/ WRIST JOINT Range of Motion Left Hand Left hand range of motion is normal. Range of motion additional comments: ABLE TO MAKE FULL FIST Positive Doll's maneuver Strength Left Hand Left hand strength is normal. Strength additional comments: 5/5 EQUAL [employer]PER[employer]ENGTH Neurovascular Left Left neurovascular exam is normal. Radial pulse: normal and 2+ Capillary refill: <3 sec General Constitutional: appears stated age Labored breathing: no Neurological: alert and oriented x3 Skin: intact Lymphadenopathy: none Vitals: There is no height or weight on file to calculate BMI. Tobacco Use: Medium Risk (06/09/2024) Patient History Smoking Tobacco Use: Never Smokeless Tobacco Use: Former Passive Exposure: Not on file Alcohol Use: Alcohol Misuse (03/20/2023) AUDIT-C Frequency of Alcohol Consumption: 2-3 times a week Average Number of Drinks: 5 or 6 Frequency of Binge Drinking: Monthly IMAGING: Procedures No orders of the defined types were placed in this encounter. ASSESSMENT: ICD-10-CM 1. Left wrist pain M25.532 2. Bone spur of other site M77.9 3. Tear of left scapholunate ligament, initial encounter S63.8X2A PLAN: EMG shows carpal tunnel syndrome. Questions answered in laymen terms at the bedside. The diagnosis, home exercise plan and any ongoing restrictions/ recommendations reviewed. If unable to be reached in office, I recommend evaluation at nearest Emergency Room if any symptoms worsened or new symptoms develop for requiring urgent evaluation. documented in this encounter [facility] 05-26-2024 History of Presen t illness Narrative Images from the original note were not included. Reason for Appointment: EMG Patient: Wander Flowers : 1965 EMG Computer: [facility] Referring Physician: Dr. Paula Story EMG: CRISTINA manager business management: Tomasz Keller RT(R) Office Location: [place] Reason for EMG: c/o numbness/tingling in left hand, pain in left wrist. No hx of DM. Not on blood thinners. Comments: Procedure was explained to the patient who expressed understanding. Patient appeared to have tolerated the test well despite some discomfort due to the nature of the test. documented in this encounter [facility] 05-19-2024 History of Presen t illness Narrative Images from the original note were not included. NAME: Wander Flowers : 1965 HISTORY OF PRESENT ILLNESS: NEW PT Wander Flowers is an 58 y.o. @ male. (DR MCDONALD REFERRAL) NEW PT PRESENTS WITH (L) WRIST PAIN. SYMPTOMS HAVE BEEN INTERMITTENT SINCE FEB 2024 ; DENIES ANY INJURY XRAYS 05/12/24 IN [facility] S/P PREDNISONE TAPER 04/19/24 - PCP ; TEMP RELIEF PAIN IS INTERMITTENT ; OCCURS RANDOMLY - SOME PAIN WHEN LIFTING WEIGHTS. PAIN IS DIFFUSE. NOTES LIMITED ROM ; SOME WEAKNESS WHEN GRIPPING - WEARS WRAPS WHEN LIFTING. DENIES ANY SWELLING. WAKES HS WITH N/T IN HIS ENTIRE HAND. TAKING IBUPROFEN PRN / VOLTAREN GEL - DENIES RELIEF ; HAS RELAFEN RX BUT HAS NOT TRIED YET. PAST MEDICAL HISTORY: Past Medical History: Diagnosis Date Chest pain negative IN Essential hypertension, benign (CMS/HCC) Gout Pain in joint, shoulder region Right bundle branch block 2009 PAST SURGICAL HISTORY: Past Surgical History: Procedure Laterality Date VASECTOMY SOCIAL HISTORY: Social History Occupational History Not on file Tobacco Use Smoking status: Never Smokeless tobacco: Former Types: Snuff Quit date: 10/20/2011 Vaping Use Vaping status: Never Used Substance and Sexual Activity Alcohol use: Yes Alcohol/week: 12.0 standard drinks of alcohol Types: 12 Cans of beer per week Drug use: Never Sexual activity: Yes Partners: Female control/protection: Male Sterilization ALLERGIES: Allergies Allergen Reactions Indomethacin Rash Paxlovid [Nirmatrelvir-Ritonavir] Rash HOME MEDICATIONS: Current Outpatient Medications Medication Instructions allopurinol (ZYLOPRIM) 300 mg, Oral, Daily colchicine 0.6 MG tablet Take 1 tablet at first sign of gout., then take 1 tablet every hour until improvement or total of 6 tablets. metoprolol tartrate (LOPRESSOR) 25 mg, Oral, 2 times daily nabumetone (RELAFEN) 750 mg, Oral, 2 times daily REVIEW OF SYSTEMS: Review of Systems Vitals: Body mass index is 31.87 kg/m . Tobacco Use: Medium Risk (05/19/2024) Patient History Smoking Tobacco Use: Never Smokeless Tobacco Use: Former Passive Exposure: Not on file Alcohol Use: Alcohol Misuse (03/20/2023) AUDIT-C Frequency of Alcohol Consumption: 2-3 times a week Average Number of Drinks: 5 or 6 Frequency of Binge Drinking: Monthly PHYSICAL EXAM: Hand/Wrist Musculoskeletal Exam Inspection Left Erythema: none Ecchymosis: none Edema: mild Deformity: none Hand - prior incision: none Wrist - prior incision: none Palpation Left Wrist tenderness to palpation: carpal canal Range of Motion Left Wrist Active Extension: 50 Passive Extension: 50 Active Flexion: 70 Passive Flexion: 70 Active Radial Deviation: 35 Passive Radial Deviation: 35 Active Ulnar Deviation: 35 Passive Ulnar Deviation: 35 Active Pronation: 60 Passive Pronation: 60 Active Supination: 90 Passive Supination: 90 Strength Left Hand Extensor pollicis longus: 5/5. Abductor pollicis brevis: 5/5. Digital extensors: 5/5. Thumb opposition: 3/5. Finger abduction: 4+/5. 1st dorsal interossei abduction: 5/5. Radial digital flexors: 5/5. Ulnar digital flexors: 5/5. Left Wrist Extension: 5/5. Flexion: 5/5. Radial deviation: 5/5. Ulnar deviation: 5/5. Pronation: 5/5. Supination: 5/5. Neurovascular Left Radial pulse: normal Ulnar pulse: 2+ Capillary refill: brisk Ulnar nerve sensory distribution: normal Ulnar nerve 2 point discrimination (mm): 4 Median nerve sensory distribution: decreased Median nerve 2 point discrimination (mm): 10 Superficial radial nerve sensory distribution: normal Superficial radial nerve 2 point discrimination (mm): 4 Special Tests Left Phalen's: positive Gorge's test: positive Doll's test: negative Loraine's test: negative Froment's sign: negative DRUJ instability: negative Carpal compression test: positive CMC grind test: negative Tinel's - carpal tunnel: positive Tinel's - cubital tunnel: negative Tinel's - Guyon's canal: negative IMAGING: XR wrist 1 or 2 views left EXAM: XR - LT WRIST 2 VIEWS REASON FOR STUDY: Left wrist pain COMPARISON: None FINDINGS: 2 views The wrist joint alignment is satisfactory. There is radiocarpal joint space narrowing with some spurring of the scaphoid bone posteriorly and a small corticated ossicle posteriorly at the wrist joint. There is no fracture. Mild diffuse soft tissue swelling. IMPRESSION: Mild wrist soft tissue swelling and degenerative change. No acute fracture. Dictated on: 05/12/2024 4:52 PM This report has been electronically signed and approved by the interpreting Radiologist. Electronically Signed Brendan Calzada D.O. 2024-05-12 16:53:21 Procedures Orders Placed This Encounter Procedures EMG AND NERVE CONDUCTION STUDY Standing Status: Future Standing Expiration Date: 05/19/2025 Scheduling Instructions: JOSE ; Please call patient to schedule, thank you (L) UE EMG ASSESSMENT: ICD-10-CM 1. Limb weakness R29.898 EMG AND NERVE CONDUCTION STUDY 2. Bone spur of other site M77.9 Ambulatory referral to Orthopaedic Surgery 3. Numbness R20.0 EMG AND NERVE CONDUCTION STUDY 4. Paresthesia R20.2 EMG AND NERVE CONDUCTION STUDY 5. Pain in extremity, unspecified extremity M79.609 EMG AND NERVE CONDUCTION STUDY PLAN: We have answered all the patients questions and explained the patients condition, decision making and plan including the risks and benefits associated with said plan in layman''s terms in a language the patient could understand easily. If patient''s symptoms significantly worsen and they cannot get a hold of us or their family physician, we have recommended that the patient proceed to the nearest emergency department (room). Dr. Story obtained history and examined the patient, I am acting as scribe for Dr. Story/le, PLAN: We have reviewed prior (L) wrist xrays. After examination today we are recommending a (L) UE EMG to r/o carpal tunnel. We are also providing him with a wrist cockup splint today in office to be worn at . We have discussed his HEP and restrictions and will see him back in A left [id number] Wrist Hand Orthosis, Wrist Extension Control Cock-Up, non-molded, prefabricated, off the shelf brace was applied. This brace will be used to immobilize the wrist and allow for full and complete healing of the wrist. The function of the device is to provide support, decrease edema, control motion at wrist joint. The goals of the device are to decrease pain decrease inflammation, increase stability and to allow the patient to continue to use hand and wrist to complete ADLs. The device is medically necessary for the condition, symptoms and diagnosis. It was dispensed and fitted for the patient, and it fit properly. The patient was educated as to proper use and care, and this was reviewed in detail. Written instructions and warranty information were given with the device. A receipt for the device is on file. The current supplier standards were given to the patient. [facility] patient agreement was completed at time of dispensement. The patient stated that the device was comfortable when fitted in the office. At the time of dispensement, the device was suitable and not substandard. Paula Story D.O. documented in this encounter [facility] 05-13-2024 Telephone encount er Note Patient was notified and verbalized understanding. He/She knows to contact office with any further questions. I sent the referral. He would like anti-inflammatory if you can send that in please and he is going to get the gel too while he is there [facility] 05-13-2024 Miscellaneous Notes Formattin g of this note might be different from the original. Patient was notified and verbalized understanding. He/She knows to contact office with any further questions. I sent the referral. He would like anti-inflammatory if you can send that in please and he is going to get the gel too while he is there Celine can you contact him after 230 today that is when he gets off work. I reviewed the report and the x-ray itself and he definitely has a spur and 1 of his wrist bones between the base of the thumb in his forearm. I can see with a spur could be rubbing and causing pain. I would recommend referral to orthopedics he can either see Dr. Story locally or there is a hand specialist [facility] at [facility], but last I knew it was 3-4 months to get into her. We can use some oral anti-inflammatories to try and help control things until he gets taken care of. And other option would be to use [id number]-[id number] diclofenac gel a pea-sized amount rubbed into the area near the spur if he finds the last part of his forearm bone just below the thumb right at the edges where this spur is and if he were just aerobic good pea-sized amount into that area he should get it. documented in this encounter [facility] 05-13-2024 Telephone encount er Note Celine can you contact him after 230 today that is when he gets off work. I reviewed the report and the x-ray itself and he definitely has a spur and 1 of his wrist bones between the base of the thumb in his forearm. I can see with a spur could be rubbing and causing pain. I would recommend referral to orthopedics he can either see Dr. Story locally or there is a hand specialist up at [facility], but last I knew it was 3-4 months to get into her. We can use some oral anti-inflammatories to try and help control things until he gets taken care of. And other option would be to use yjim-imp-bnjmulz diclofenac gel a pea-sized amount rubbed into the area near the spur if he finds the last part of his forearm bone just below the thumb right at the edges where this spur is and if he were just aerobic good pea-sized amount into that area he should get it. [facility] 05-12-2024 History of Presen t illness Narrative Images from the original note were not included. Patient ID: Wander Flowers is a 58 y.o. male who presents for: Wrist Pain Patient complains of left wrist pain. The pain is moderate, worsens with movement, and some relief by prednisone . There is not associated numbness, tingling in the left hand. Pain has been present for several months. There is not a history of injury. He thought it was gout because it felt like gout but Laboratory test demonstrates a relatively low uric acid level which makes this less probable. Review of Systems Constitutional: Negative for chills and fever. Respiratory: Negative for cough, shortness of breath and wheezing. Cardiovascular: Negative for chest pain and palpitations. Gastrointestinal: Negative for abdominal pain. Genitourinary: Negative for frequency and urgency. Objective The patient is pleasant and in no acute distress The patient does not appear to have a gross neurologic deficit. The patient has good eye contact and clear speech The left wrist does have some mild decrease in both flexion and extension. Lateral risk movement increase his pain. He is diffusely tender over the region between the base of his thumb in the radial styloid in the wrist area. There is no isolated anatomic snuffbox tenderness. While he feels it is swollen to my eye it would only be minimally so. There is no increasing calor or rubor. Neurovascularly grossly intact. Visit Vitals Ht 6' Wt 244 lb BMI 33.09 kg/m Smoking Status Never BSA 2.37 m Allergies Allergen Reactions Indomethacin Rash Paxlovid [Nirmatrelvir-Ritonavir] Rash Current Outpatient Medications on File Prior to Visit Medication Sig Dispense Refill allopurinol (Zyloprim) 300 MG tablet Take 1 tablet (300 mg) by mouth Daily 90 tablet 1 colchicine 0.6 MG tablet Take 1 tablet at first sign of gout., then take 1 tablet every hour until improvement or total of 6 tablets. 6 tablet 1 metoprolol tartrate (Lopressor) 25 MG tablet Take 1 tablet (25 mg) by mouth in the morning and 1 tablet (25 mg) before bedtime. 180 tablet 1 No current facility-administered medications on file prior to visit. 1. Left wrist pain (Primary) We discussed and I continue to recommend that he consider icing this and putting it into an [id number]-[id number] wrist splint temporarily. He does actively lift weights. I have asked him to cut the amount of weight back about 50 percent in do more repetition so he does not lose his strength with so we can ease the pressure on the joint. He does note that lifting weights causes worsening of his pain. We have also mutually agreed to proceed with some basic diagnostic imaging. I will call him back consists evaluated. - XR wrist 1 or 2 views left; Future documented in this encounter [facility] 04-14-2024 History of Presen t illness Narrative Images from the original note were not included. Patient ID: Wander Flowers is a 58 y.o. male who presents for: Hypertension Patient is here for follow-up of elevated blood pressure. He is exercising and is adherent to a low-salt diet. Blood pressure is well controlled at home. Cardiac symptoms: none. Patient denies chest pain, dyspnea, irregular heart beat, lower extremity edema, and palpitations. Cardiovascular risk factors: advanced age (older than 55 for men, 65 for women), hypertension, male gender, and obesity (BMI >= 30 kg/m2). Use of agents associated with hypertension: none. History of target organ damage: none. 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 The patient reports no acute gout attacks since last clinic visit. Attacks occur primarily in the right first MTP joint. Patient reports his/her chronic pain is stable, his joint stiffness is stable and his/her joint swelling is stable. Limitation on activities include none. The patient is avoiding high purine foods Review of Systems Constitutional: Negative for activity change and fatigue. Respiratory: Negative for cough, shortness of breath and wheezing. Cardiovascular: Negative for chest pain, palpitations and leg swelling. Neurological: Negative for light-headedness and headaches. Objective The patient is pleasant and in no acute distress. The neck is supple and trachea is midline. No masses are appreciated. The heart is regular rate and rhythm without S3, S4. No murmur. The patient has normal respiratory pattern. The breath sounds are symmetrical without evidence of rhonchi or rales. No wheezing. The skin is warm and dry. The lower extremities have trace edema. The patient has good eye contact and speech is clear. Appropriate affect. Visit Vitals BP 128/78 Pulse 58 Ht 6' Wt 244 lb SpO2 97% BMI 33.09 kg/m Smoking Status Never BSA 2.37 m Allergies Allergen Reactions Paxlovid [Nirmatrelvir-Ritonavir] Rash Current Outpatient Medications on File Prior to Visit Medication Sig Dispense Refill allopurinol (Zyloprim) 300 MG tablet Take 1 tablet (300 mg) by mouth Daily 90 tablet 1 indomethacin (Indocin) 50 MG capsule Take 1 capsule (50 mg) by mouth in the morning and 1 capsule (50 mg) at noon and 1 capsule (50 mg) in the evening. Take with meals. Do all this for 10 days. 30 capsule 0 metoprolol tartrate (Lopressor) 25 MG tablet Take 1 tablet (25 mg) by mouth in the morning and 1 tablet (25 mg) before bedtime. 180 tablet 1 No current facility-administered medications on file prior to visit. 1. Benign essential hypertension (CMS/HCC) Chronic problem, stable, to goal, continue current treatment - metoprolol tartrate (Lopressor) 25 MG tablet; Take 1 tablet (25 mg) by mouth in the morning and 1 tablet (25 mg) before bedtime. Dispense: 180 tablet; Refill: 1 - Comprehensive metabolic panel; Future - Lipid panel; Future - Comprehensive metabolic panel - Lipid panel 2. Hypertensive nephropathy (CMS/HCC) Chronic problem demonstrating end-organ damage from the hypertension. - Comprehensive metabolic panel; Future - Lipid panel; Future - Comprehensive metabolic panel - Lipid panel 3. Microalbuminuria Chronic problem, defining an aspect the nephropathy, with significant risk, uncertain progression requiring longitudinal monitoring, and moderate decision making. Microalbuminuria describes a moderate increase in the level of urine albumin. Normally, the kidneys filter albumin, so if the kidney leaks small amounts of albumin into the urine then it is a indicator of chronic kidney disease. Microalbuminuria is an independent indicator of increased cardiovascular risk among individuals and therefore can be used for risk stratification for cardiovascular disease. 4. Hyperuricemia Chronic problem that is currently stable. He did have a recent episode of gout. In prescribing a renewal to their current medication, consideration of the following encompasses moderate decision making; the current prescriptions and supplements, the current allergies and medication intolerances, current medical conditions, and potential drug interactions. Any changes to risks, benefits, and reason for renewing their current medication due to the above were discussed. The patient was given a chance to ask questions today and all questions were answered. The patient is to contact us if any other questions arise or if any problems occur. (Utilizing the original 1994/1996 guidelines or the 2020 office/outpatient code guidelines for selecting the level of E/M service, In both sets of guidelines, prescription drug management appears in the moderate medical decision making (MDM) row. Neither the original guidelines nor the new guidelines state that a new prescription or change is needed in order to credit prescription drug management) - allopurinol (Zyloprim) 300 MG tablet; Take 1 tablet (300 mg) by mouth Daily Dispense: 90 tablet; Refill: 1 - colchicine 0.6 MG tablet; Take 1 tablet at first sign of gout., then take 1 tablet every hour until improvement or total of 6 tablets. Dispense: 6 tablet; Refill: 1 - Uric acid; Future - Uric acid 5. Non morbid obesity due to excess calories Encouraged lifestyle changes which include an aerobic exercise program. documented in this encounter [facility] 04-06-2024 Telephone encount er Note Allopurinol sent [facility] 04-06-2024 Miscellaneous Notes Formattin g of this note might be different from the original. Allopurinol sent Lawrence schaefer, we had to move his appointment and he is out of his gout medication and is having a flare. He is requesting a refill to [facility] in [place]. documented in this encounter [facility] 04-06-2024 Telephone encount er Note Lawrence called, we had to move his appointment and he is out of his gout medication and is having a flare. He is requesting a refill to [facility] in [place]. [facility] 12-02-2022 Evaluation note Encounter Date Diagnosis Assessment Notes November, Poison xavi dermatitis (ICD-10 - L23.7) Poison xavi allergy home care material was printed Drink plenty fluids, get plenty of rest. Take the prednisone as prescribed until gone starting tomorrow. You may take Benadryl, 25 to 50 mg by mouth for itching. Consider using calamine lotion to the rash. Follow-up with your family physician if no improvement in 2 to 3 days [facility] Other Evaluation + Plan note No data available for this section [facility] Evaluation note* Diagnosis Benign essential hypertension (CMS/HCC) Essential hypertension, benign Hypertensive nephropathy (CMS/HCC) Unspecified hypertensive kidney disease with chronic kidney disease stage I through stage IV, or unspecified Microalbuminuria Proteinuria Hyperuricemia Other abnormal blood chemistry Non morbid obesity due to excess calories documented in this encounter [facility]* Diagnosis Bone spur of other site documented in this encounter [facility]* Diagnosis Left wrist pain- Primary Pain in joint, forearm Left wrist pain Pain in joint, forearm documented in this encounter [facility] note* Diagnosis Limb weakness- Primary Other musculoskeletal symptoms referable to limbs Bone spur of other site Numbness Disturbance of skin sensation Paresthesia Disturbance of skin sensation Pain in extremity, unspecified extremity documented in this encounter [facility]* Diagnosis Left carpal tunnel syndrome- Primary Carpal tunnel syndrome Limb weakness Other musculoskeletal symptoms referable to limbs Numbness Disturbance of skin sensation Paresthesia Disturbance of skin sensation Pain in extremity, unspecified extremity documented in this encounter [facility]* Diagnosis Left wrist pain- Primary Pain in joint, forearm Bone spur of other site Tear of left scapholunate ligament, initial encounter documented in this encounter [facility]* Diagnosis Hyperuricemia Other abnormal blood chemistry Benign essential hypertension (CMS/HCC) Essential hypertension, benign Hypertensive nephropathy (CMS/HCC) Unspecified hypertensive kidney disease with chronic kidney disease stage I through stage IV, or unspecified Microalbuminuria Proteinuria Hyperuricemia Other abnormal blood chemistry Non morbid obesity due to excess calories documented in this encounter [facility] HealthcareEvaluation note* Diagnosis Left wrist pain- Primary Pain in joint, forearm Extensor carpi ulnaris tendinitis documented in this encounter [facility] HealthcareHistory general Narrative - Reported* Type Description Date Medical History HTN Medical History gout Hospitalization History chest pain [facility] Other Hospital Discharge instructions No data available for this section [facility] Progress note No data available for this section [facility] Reason for visit Narrative* Other Medical (Routine) - Closed Specialty Diagnoses / Procedures Referred By Marsha ochoa Referred To Contact Neurology Diagnoses Limb weakness Numbness Paresthesia Pain in extremity, unspecified extremity Procedures EMG AND NERVE CONDUCTION STUDY Jr. Paula Story DO [address] [facility] [address] [place] [address] Phone: tel: fax: Dimitri Quispe MD [id number] [place] [address] Phone: tel: fax: Referral ID Status Reason Start Date Expiration Date V isits Requested Visits Authorized [id number] Closed Perform Procedure 05/19/2024 11/15/2024 1 1 [facility] Healthcare Summary Purpose Family History No Family History Records Found No data available for this section No Family History Records FoundNo Family History Records Found Advance Directives No Advanced Directives Records FoundNo Advanced Directives Records FoundNo Advanced Directives Records Found Additional Source Comments (unrecognized sect ion and content) No Status Records FoundNo Status Records FoundNo Status Records Found INFORMATION SOURCE (unrecogn ized section and content) DATE CREATED AUTHOR 06/12/2022 [facility] DATE CREATED AUTHOR AUTHOR'S ORGANIZ ATION 01/04/2024 [facility] DATE CREATED AUTHOR AUTHOR'S ORGANIZ ATION 07/11/2024 [facility] EPIC REASON FOR VISIT (unrecogniz ed section and content) Reason Onset Date Comments Results 05/13/2024 Reason Comments Wrist Pain Reason Comments Pain Specialty Diagnoses / Procedures Referred By Contact Referred To Contact Orthopaedic Surgery Diagnoses Bone spur of other site Ilsa Mcdonald MD [address] [facility] [address] [place] [address] Phone: tel: fax: Jr. Paula Story DO [address] [facility] [address] [place] [address] Phone: tel: fax: Referral ID Status Reason Start Date Expiration Date V isits Requested Visits Authorized [id number] Closed Specialty Services Required 05/13/2024 11/09/2024 1 1 Care Teams (unrecognized sec tion and content) Belt Knife Feeder Relationship Specialty Start Date End Date Ilsa Mcdonald MD [address] [facility] [address] [place] [address] (Fax) PCP - General Family Medicine 05/20/24 [employer] Knife Feeder Relationship Specialty Start Date End Date Ilsa Mcdonald MD (Fax) PCP - General Family Medicine 01/30/23 [employer] Knife Feeder Relationship Specialty Start Date End Date Ilsa Mcdonald MD [address] [place] [id number] PCP - General Family Medicine 01/30/23 FOR RECORDS PERTAINING TO PATIENTS WHO ARE OR HAVE BEEN ENROLLED IN A CHEMICAL DEPENDENCY/SUBSTANCEABUSE PROGRAM, SOME INFORMATION MAY BE OMITTED. This clinical summary was aggregated from multiple sources. Caution should be exercised in using it in the provision of clinical care. This summary normalizes information from multiple sources, and as a consequence, information in this document may materially change the coding, format and clinical context of patient data. In addition, data may be omitted in some cases. CLINICAL DECISIONS SHOULD BE BASED ON THE PRIMARY CLINICAL RECORDS. [facility]. provides no warranty or guarantee of the accuracy or completeness of information in this document.
[2024-10-02 12:52] LABS: Chloride 103 mmol/L (98-107); Sodium 142 mmol/L (136-145)
[2024-10-02 12:53] LABS: Alanine Aminotransferase 15 U/L (16-63); Albumin Globulin Ratio 1.3; Albumin Level 4.1 g/dL (3.4-5.0); Alkaline Phosphatase 83 U/L (46-116); Anion Gap 17.3; Aspartate Amino Transferase 16 U/L (15-37); Bilirubin Total 1.2 mg/dL (0.2-1.0); Calcium 9.3 mg/dL (8.5-10.1); Carbon Dioxide 25.7 mmol/L (21.0-32.0); Estimated GFR (African America >60 (>=60 mL/min/1.73m^2); Estimated GFR (Non-African Ame >60 (>=60 mL/min/1.73m^2); Globulin 3.1 g/dL; Glucose 106 mg/dL (74-106); Total Protein 7.2 g/dL (6.4-8.2)
[2024-10-02 12:54] LABS: Chol HDL Ratio 2.7; Cholesterol 173 mg/dL (<=200); HDL Cholesterol 65 mg/dL (40-60); Triglycerides 62 mg/dL (<=150); VLDL CHOLESTEROL 12.4 mg/dL
== END 2024-10-02 10:00 | disposition home or self-care (01) ==
LOC: LAB 10:02
PROVIDERS: PCP Family Medicine; Visit Provider Family Medicine
DX: I12.9 Hypertensive chronic kidney disease with stage 1 through stage 4 chronic kidney disease, or unspecified chronic kidney disease (principal); E79.0 Hyperuricemia without signs of inflammatory arthritis and tophaceous disease
CPT/HCPCS: 36415; 80053; 80061; 84550

== ENCOUNTER 2025-01-04 22:14 | Inpatient (IN) | payer OTHER, SELFPAY ==
[2025-01-04] VITALS (11 sets, daily range): BP systolic 136–147; BP diastolic 76–88; PULSE 54; TEMP 37; O2SAT 96–100; BMI 32.5
--- OUTSIDE RECORDS SUMMARY | 2025-01-04 22:19 | XMS_ITS | Clinical Summary ---
Author Organization [facility] Address [address] [place] [address] Care Team Providers Care Door Maker Name Role Phone Donny Sr MD Primary Care Provider [phone] Allergies Active Allergy Reactions Criticality Noted Date Comments Indomethacin Rash Low 05/19/2024 Nirmatrelvir-Ritonavir Rash Low 07/10/2023 Medications allopurinol (Zyloprim) 300 mg tablet Take 300 mg by mouth in the morning. Active metoprolol tartrate (Lopressor) 25 mg tablet TAKE 1 TABLET (25 MG) BY MOUTH IN THE MORNING AND BEFORE BEDTIME Active Active Problems No known active problems Social History Tobacco Use Types Packs/Day Years Used Date Smoking Tobacco: Never Smokeless Tobacco: Never Tobacco Cessation:Counseling Given: Not Answered Humiliation, Afraid, Rape, and Kick questionnair e Answer Date Recorded Within the last year, have y ou been afraid of your partner or ex-partner? No 08/31/2024 Emotionally Abused Not on file 08/31/2024 Physically Abused Not on file 08/31/2024 Sexually Abused Not on file 08/31/2024 PHQ-2 Answer Date Recorded Patient Health Questionnaire-2 Score 0 08/31/2024 Sex and Gender Information Value Date Recorded Sex Assigned at Male 08/31/2024 8:44 AM EST Legal Sex Male 10:35 AM EST Gender Identity Male 08/31/2024 8:44 AM EST Sexual Orientation Heterosexual or Straight 08/21 8:44 AM EST Last Filed Vital Signs Vital Sign Reading Time Taken Comments Blood Pressure - - Pulse - - Temperature - - Respiratory Rate - - Oxygen Saturation - - Inhaled Oxygen Concentration - - Weight 109 kg (240 lb) 08/31/2024 8:48 AM EST Height 182.9 cm (6') 08/31/2024 8:48 AM EST Body Mass Index 32.55 08/31/2024 8:48 AM EST Plan of Treatment Health Maintenance Due Date Last Done Comments CT Colonography 1966 Colonoscopy 1966 FIT-DNA 1966 FOBT 1966 Sigmoidoscopy 1966 Hepatitis B Vaccines (1 of 3 - 19+ 3-dose series) 1985 Adult Tetanus 1988 COVID-19 Vaccine (1 - 2023-2 5 season) 2024 Zoster Vaccines (2 of 2) 10/10/2024 08/15/2024 Colorectal Cancer Screening 01/04/2025 FIT 01/04/2025 01/05/2024 Influenza Vaccine (Season Ended) 2025 04/25/2021, 04/13/2020, 06/09/2018 Depression Screening 08/31/2025 08/31/2024 HIB Vaccines Aged Out No longer eligi ble based on patient's age to complete this topic HPV Vaccines Aged Out No longer eligi ble based on patient's age to complete this topic IPV Vaccines Aged Out No longer eligi ble based on patient's age to complete this topic Meningococcal B Vaccine Aged Out No l onger eligible based on patient's age to complete this topic Meningococcal Vaccine Aged Out No boogie kirk eligible based on patient's age to complete this topic Pneumococcal Vaccine: Pediatrics (0 to 5 Years) and At-Risk Patients (6 to 64 Years) Aged Out No longer eligible b ased on patient's age to complete this topic Rotavirus Vaccines Aged Out No longer eligible based on patient's age to complete this topic Insurance [employer] Care Teams Door Maker Relationship Specialty Start Date End Date Donny Sr MD [address] [place] [address] PCP - General 07/19/24
--- OUTSIDE RECORDS SUMMARY | 2025-01-04 22:19 | XMS_ITS | CCD ---
Author Organization [facility] Care Team Providers Care Quality Control Analyst Name Role Phone TAMARA, DR ROSENBAUM Admitting Unavailable HEMEYER, DR ROSENBAUM Attending Unavailable HEMEYER, DR ROSENBAUM Primary Care Unavailable HEMEYER, DR ROSENBAUM Admitting Unavailable HEMEYER, DR ROSENBAUM Attending Unavailable HEMETORI, DR RSOENBAUM Primary Care Unavailable GLENNYYER, DR ROSENBAUM Consulting Unavailable Gloria Fish Unavailable NONE, XXXX Primary Care Physician Unavailab Dilshad Chaney Attending Unavailable Donny Mcdonald MD Primary Care Provider Donny Mcdonald MD Primary Care Provider Donny Mcdonald MD Primary Care Provider [phone] Donny Mcdonald MD Primary Care Provider Donny Mcdonald MD Primary Care Provider DONNY MCDONALD Attending Unavailable JADA UP Attending Unavailable DONNY MCDONALD Referring Unavailable DONNY MCDONALD Attending Unavailable DONNY MCDONALD Attending Unavailable JADA UP Attending Unavailable JADA UP Attending Unavailable DONNY MCDONALD Referring Unavailable JR. STORY GEORGE C Attending Unavaila ble DONNY MCDONALD Referring Unavailable MONIQUE REA Attending Unavailable JR. STORY GEORGE C Referring Unavaila ble JR. BRIANNE, PAULA Latham Attending Unavaila ble JR. BRIANNE, PAULA Latham Referring Unavaila oren STORY JR., PAULA Latham Attending Unavaila ble Allergies Allergy Classification Reported Allergen(s) Allergy Type Date of Onset Reaction(s) Facility (2 sources) [facility]; Translations: [nirmatrelvir] Propensity to adverse reactions to drug Eruption of skin (disorder) [facility] (20 sources) Nirmatrelvir-Rit onavir Allergy to substance 3 Rash [facility] (20 sources) Indomethacin Drug Allergy 4 Rash [facility] Medications Current Medications Medication Drug Class(es) Dates Sig (Normalized) Sig (Original) allopurinol 300 mg oral tablet (20 sources) Xanthine Oxidase Inhibitor Start: 10-08-2023 End: 04-04-2025 take 1 tablet by mouth once daily allopurinol (Zyloprim) 300 MG tablet Indications: Hyperuricemia Take 1 tablet (300 mg) by mouth Daily 90 tablet 1 10/06/2024 04/04/2025 Active take 1 tablet by antoinette th every twenty-four hours Allopurinol 300 MG 1 tablet Orally Once a day for 30 day(s) Active colchicine 0.6 mg oral tablet (20 sources) Start: 04-14-2024 colchicine 0.6 MG tablet Indications: Hyperuricemia Take 1 tablet at first sign of gout., then take 1 tablet every hour until improvement or total of 6 tablets. 6 tablet 1 04/14/2024 Active hydrocortisone 10 mg/ml / neomycin 3.5 mg/ml / polymyxin b 09164 unt/ml otic suspension (1 source) Aminoglycoside Antibacterial, [...] (20 sources) beta-Adrenergic Susan Start: 10-08-2023 End: 04-04-2025 take 1 tablet by mouth in the morning metoprolol tartrate (Lopressor) 25 MG tablet Indications: Benign essential hypertension Take 1 tablet (25 mg) by mouth in the morning and 1 tablet (25 mg) before bedtime. 180 tablet 1 10/06/2024 04/04/2025 Active Metoprolol Tartrate unknown (1 source) take [...] before bedtime. 60 tablet 05/13/2024 06/12/2024 Active triamcinolone acetonide 1 mg/ml topical cream (10 sources) Corticosteroid Start: 11-01-2024 triamcinolone (Kenalog) 0.1 % cream Indications: Other atopic dermatitis Apply topically 2 (two) times a day as needed for rash 454 g 3 11/01/2024 Active Start: 12-02-2022 Kenalog-40 November, 40 mg Completed/Discontinued Medications Medication Drug Class(es) Dates Sig [...] Orally bid for 5 day(s) November, Active Problems Active Problems Problem Classification Problem Date Documented Date Episodic/Chronic Allergic reactions (2 sources) Atopic dermatitis; Translations: [Other atopic dermatitis] 11-01-2024 Chronic Allergic reactions (1 source) Allergic contact dermatitis [...] AND TOPHACEOUS DZ] Onset: 06-12-2022 Episodic Other nutritional; endocrine; and metabolic disorders (20 sources) Hyperuricemia; Translations: [Hyperuricemia without signs of inflammatory arthritis and tophaceous disease] Onset: 03-27-2023 04-06-2024 Episodic Other screening for suspected conditions (not mental disorders or infectious disease) (2 sources) Encounter for screening for lipoid disorders; Translations: [Encounter for screening for malignant neoplasm of prostate] Onset: 06-12-2022 Episodic Other skin disorders (6 sources) Eruption; Translations: [Rash and other nonspecific skin eruption] 11-01-2024 Episodic Other upper respiratory infections (1 source) [...] 04-06-2024 Episodic Other and unspecified benign neoplasm (20 sources) Dermatofibroma of left upper limb; Translations: [Other benign neoplasm of skin of left upper limb, including shoulder] Onset: 03-27-2023 Resolved: 03-30-2024 03-30-2024 Episodic Other diseases of veins and lymphatics (20 sources) Vascular insufficiency; Translations: [Venous insufficiency (chronic) (peripheral)] Onset: 03-27-2023 03-27-2023 Episodic Other nutritional; endocrine; and metabolic disorders (20 sources) Morbid obesity; Translations: [Morbid (severe) obesity due to excess calories] Onset: 03-27-2023 Resolved: 03-30-2024 03-30-2024 Chronic Results Test Name Value Interpretation Reference Range Facil ity No Panel Informationon 11-22 Type of biopsy: pun h Informed consent: discussed and consent obtained Informed consent comment: The risks and benefits were discussed. Risks include, but are not limited to, bleeding, infection, scarring, pain, & nerve damage. An opportunity to ask questions prior to the procedure was permitted and questions were answered. Patient was prepped and draped in usual sterile fashion: Area cleansed with alcohol. Anesthesia: the lesion was anesthetized in a standard fashion Anesthetic: 1% lidocaine w/ epinephrine 1-100,000 buffered w/ 8.4% NaHCO3 Punch size: 4 mm (A biopsy by punch method was performed using a dermal punch) Suture size: 4-0 Suture type: nylon Suture type comment: Hemostasis was achieved with suture. Suture removal (days): 12 Hemostasis achieved with: suture Outcome: patient tolerated procedure well Post-procedure details: sterile dressing applied and wound care instructions given Post-procedure details comment: Emphasized the need to contact clinic for any signs of infection, uncontrollable bleeding, or complications. Dressing type: bandage Additional details: Amount of lidocaine used: 1.0 cc Number of sutures used: 2 Specimen sent for: H&E Photo taken [facility] Recovers[facility] MR WRIST LEFT WO IV CONTRAST on [...] of the wrist. ELECTRONICALLY SIGNED BY: Faizan Johnson DO Normal Not Available EMG 1 Extremeityon EMG/ NCS LUE Minimal [facility] 7-8 Nerveson 05-26-2024 EMG/ NCS LUE Minimal left carpal tunnel [facility] XR WRIST 1-2 VIEWS LEFTon [...] Electronically Signed Brendan Calzada D.O. 2024-05-12 16:53:21 Brendan Caldwell DO - 05/12/2024 EXAM: XR - LT [...] Electronically Signed Brendan Calzada D.O. 2024-05-12 16:53:21 [facility] [employer] Radiology Study observation (narrative) [facility] [employer] XR Wrist - left 2 ViewsOrder ed By: Brendan Calzada on 05-12-2024 [facility] [employer] Work Phone: Ambulatory Visit Summaryon 0 01-03-2024 Ambulatory Visit Summary WANDER STENR :1965 Visit Date:01/03/2024 Ambulatory Visit Instructions Your [...] a day Duration: 7 Days Pickup at [facility]/pharmacy #[id number] Unchanged allopurinol (allopurinol 300 mg Tab) Unchanged metoprolol (Lopressor 25 mg oral tablet) Pharmacy Information [facility]/pharmacy #[id number]: [address], [place] [id number] [phone] Allergies Paxlovid (Rash) Patient Survey You may receive a survey via text or e-mail asking about your office visit. Please share your experience with us by completing your survey. We appreciate your feedback and thank you for choosing us for your care. Normal [facility] Family Medicine Office/Clini c Noteon 01-03-2024 Family [...] influenza virus vaccine, inactivated 06/09/2018 Recorded Normal [facility] Comment on above: Result Comment: Elec tronically Signed By: Sherman SOTO, Dilshad Aden\.br\Date and Time Signed: 01/03/24 12:38 EDT LIPID PROFILEon 06-07-2022 CHOL-HDL RATIO NORM SEE BELOW Normal [facility] Comment on above: Result Comment: 3.3 - 4.4 LOW RISK 4.4 - 7.1 AVERAGE RISK 7.1 - 11.0 MODERATE RISK >11.0 HIGH RISK Performed By: #### C MP, URIC, LIPID #### [facility] [address] [address] [address] Emilia Padilla Cholesterol [Mass/Vol] 189 mg/dL Normal <=200 [facility] Comment on above: Performed By: #### C MP, URIC, LIPID #### [facility] [address] [address] [address] Emilia Padilla Cholesterol in HDL [Mass/Vol] 51 mg/dL Normal 40-60 [facility] Comment on above: Performed By: #### C MP, URIC, LIPID #### [facility] [address] [address] [address] Emilia Padilla Cholesterol in LDL [Mass/Vol] 120.2 mg/dL Normal [facility] Comment on above: Performed By: #### C MP, URIC, LIPID #### [facility] [address] [address] [address] Emilia Padilla Cholesterol.total/C holesterol in HDL [Mass ratio] 3.7 {ratio} Normal [facility] Comment on above: Performed By: #### C MP, URIC, LIPID #### [facility] [address] [address] [address] Emilia Padilla HDL NORMAL > or = 60 mg/dl - LO W CARDIOVASCULAR RISK <40 mg/dl - HIGH CARDIOVASCULAR RISK Normal [facility] Comment on above: Performed By: #### C MP, URIC, LIPID #### [facility] [address] [address] [address] Emilia Padilla LDL CALC NORMAL SEE BELOW Normal [facility] Comment on above: Result Comment: <100 mg/dl OPTIMAL 100 - 129 mg/dl NEAR OR ABOVE OPTIMAL 130 - 159 mg/dl BORDERLINE HIGH 160 - 189 mg/dl HIGH >190 mg/dl VERY HIGH Performed By: #### C MP, URIC, LIPID #### [facility] [address] [address] [address] Emilia Padilla Triglyceride [Mass/Vol] 89 mg/dL Normal <=150 [facility] Comment on above: Performed By: #### C MP, URIC, LIPID #### [facility] [address] [address] [address] Emilia Padilla VLDL CALC 17.8 mg/dL Normal [facility] Comment on above: Performed By: #### C MP, URIC, LIPID #### [facility] [address] [address] [address] Emilia Padilla PROF 14(COMP METB)on 022 Albumin [Mass/Vol] 4.0 g/dL Normal 3.4-5.0 [facility] Comment on above: Performed By: #### C MP, URIC, LIPID #### [facility] [address] [address] [address] Emilia Padilla Albumin/Globulin [Mass ratio] 1.2 {ratio} Normal [facility] Comment on above: Performed By: #### C MP, URIC, LIPID #### [facility] [address] [address] [address] Emilia Padilla ALP [Catalytic activity/Vol] 81 U/L Normal 46-116 [facility] Comment on above: Performed By: #### C MP, URIC, LIPID #### [facility] [address] [address] [address] Emilia Padilla ALT [Catalytic activity/Vol] 56 U/L Normal 16-63 [facility] Comment on above: Performed By: #### C MP, URIC, LIPID #### [facility] [address] [address] [address] Emilia Padilla Anion gap [Moles/Vol] 9.2 mmol/L Normal [facility] Comment on above: Performed By: #### C MP, URIC, LIPID #### [facility] [address] [address] [address] Emilia Padilla AST [Catalytic activity/Vol] 33 U/L Normal 15-37 [facility] Comment on above: Performed By: #### C MP, URIC, LIPID #### [facility] [address] [address] [address] Emilia Padilla Bilirubin [Mass/Vol] 1.0 mg/dL Normal 0.2-1.0 [facility] Comment on above: Performed By: #### C MP, URIC, LIPID #### [facility] [address] [address] [address] Emilia Padilla Calcium [Mass/Vol] 8.9 mg/dL Normal 8.5-10.1 [facility] Comment on above: Performed By: #### C MP, URIC, LIPID #### [facility] [address] [place] [address] Dr. Emilia Padilla Chloride [Moles/Vol] 103 mmol/L Normal 98-107 [facility] Comment on above: Performed By: #### C MP, URIC, LIPID #### [facility] [address] [place] [address] Dr. Emilia Padilla CO2 [Moles/Vol] 28.7 mmol/L Normal 21.0-32.0 [facility] Comment on above: Performed By: #### C MP, URIC, LIPID #### [facility] [address] [place] [address] Dr. Emilia Padilla Creatinine [Mass/Vol] 0.84 mg/dL Normal 0.70-1.30 [facility] Comment on above: Performed By: #### C MP, URIC, LIPID #### [facility] [address] [place] [address] Dr. Emilia Padilla EGFR-AF PERUVIAN >60 Normal >=60 [facility] Comment on above: Performed By: #### C MP, URIC, LIPID #### [facility] [address] [place] [address] Dr. Emilia Padilla EGFR-NON AF PERUVIAN >60 Normal >=60 [facility] Comment on above: Performed By: #### C MP, URIC, LIPID #### [facility] [address] [place] [address] Dr. Emilia Padilla Globulin (S) [Mass/Vol] 3.4 g/dL Normal [facility] Comment on above: Performed By: #### C MP, URIC, LIPID #### [facility] [address] [place] [address] Dr. Emilia Padilla Glucose [Mass/Vol] 104 mg/dL Normal 74-106 [facility] Comment on above: Performed By: #### C MP, URIC, LIPID #### [facility] [address] [place] [address] Dr. Emilia Padilla Potassium [Moles/Vol] 3.9 mmol/L Normal 3.5-5.1 [facility] Comment on above: Performed By: #### C MP, URIC, LIPID #### [facility] [address] [place] [address] Dr. Emilia Padilla Protein [Mass/Vol] 7.4 g/dL Normal 6.4-8.2 [facility] Comment on above: Performed By: #### C MP, URIC, LIPID #### [facility] [address] [place] [address] Dr. Emilia Padilla Sodium [Moles/Vol] 137 mmol/L Normal 136-145 [facility] Comment on above: Performed By: #### C MP, URIC, LIPID #### [facility] [address] [place] [address] Dr. Emilia Padilla Urea nitrogen [Mass/Vol] 11.0 mg/dL Normal 7.0-18.0 [facility] Comment on above: Performed By: #### C MP, URIC, LIPID #### [facility] [address] [place] [address] Dr. Emilia Padilla Urea nitrogen/Creatinine [Mass ratio] 13.1 mg/mg Normal [facility] Comment on above: Performed By: #### C MP, URIC, LIPID #### [facility] [address] [place] [address] Dr. Emilia Padilla URIC ACID SERUMon 06-07-2022 Urate [Mass/Vol] 5.2 mg/dL Normal 3.5-7.2 [facility] Comment on above: Performed By: #### C MP, URIC, LIPID #### [facility] [address] [place] [address] Dr. Emilia Padilla Vital Signs Date Time Vital Sign Value Performing Clinician Facility 05-19-2024 08:35-0400 Body height 182.9 cm Jr. Stepanic DO Work Phone: [facility] 05-19-2024 08:35-0400 Body mass index (BMI) [Ratio] 31.87 kg/m2 Jr. Stepanic DO Work Phone: [facility] 05-19-2024 08:35-0400 Body weight 106.59 kg Jr. Story DO Work Phone: [facility] 05-12-2024 15:08-0400 Body height 182.9 cm Donny Mcdonald MD Work Phone: [facility] 05-12-2024 15:08-0400 Body mass index (BMI) [Ratio] 33.09 kg/m2 Donny Mcdonald MD Work Phone: [facility] 05-12-2024 15:08-0400 Body weight 110.68 kg Donny Mcdonald MD Work Phone: [facility] 04-14-2024 15:45-0400 Body height 182.9 cm Donny Mcdonald MD Work Phone: [facility] 04-14-2024 15:45-0400 Body mass index (BMI) [Ratio] 33.09 kg/m2 Donny Mcdonald MD Work Phone: [facility] 04-14-2024 15:45-0400 Body weight 110.68 kg Donny Mcdonald MD Work Phone: [facility] 04-14-2024 15:45-0400 Diastolic blood pressure 78 mm[Hg] Donny Mcdonald MD Work Phone: [facility] 04-14-2024 15:45-0400 Heart rate 58 /min Donny Mcdonald MD Work Phone: [facility] 04-14-2024 15:45-0400 SaO2% (BldA) [Mass fraction] 97 % Donny Mcdonald MD Work Phone: [facility] 04-14-2024 15:45-0400 Systolic blood pressure 128 mm[Hg] Donny Mcdonald MD Work Phone: [facility] 01-03-2024 12:11-0400 Blood Pressure Location Dilshad Whitaker [facility] 01-03-2024 12:11-0400 Body temperature 97.52 [degF] Dilshad Whitaker [facility] 01-03-2024 12:11-0400 Diastolic blood pressure 84 mm[Hg] Dilshad Whitaker [facility] 01-03-2024 12:11-0400 Heart rate 67 /min Dilshad Whitaker [facility] 01-03-2024 12:11-0400 SaO2% (BldA) [Mass fraction] 97 % Dilshad Whitaker [facility] 01-03-2024 12:11-0400 Systolic blood pressure 132 mm[Hg] Dilshad Whitaker [facility] 12-02-2022 15:40-0400 Body height 182.88 cm Gloria Fish Other [facility] Other 12-02-2022 15:40-0400 Body mass index (BMI) [Ratio] 34.23 kg/m2 Gloria Fish Other [facility] Other 12-02-2022 15:40-0400 Body temperature 97.4 [degF] Gloria Fish Other [facility] Other 12-02-2022 15:40-0400 Body weight 114.49 kg Gloria Fish Other [facility] Other 12-02-2022 15:40-0400 Diastolic blood pressure 96 mm[Hg] Gloria Fish Other [facility] Other 12-02-2022 15:40-0400 Respiratory rate 18 /min Gloria Fish Other [facility] Other 12-02-2022 15:40-0400 SaO2% (BldA) [Mass fraction] 99 % Gloria Fish Other [facility] Other 12-02-2022 15:40-0400 Systolic blood pressure 160 mm[Hg] Gloria Fish Other [facility] Other Encounters Encounter Date Encounter Type Care Provider Facility Start: 01-04-2025 End: 01-04-2025 Nicole Mcdonald MD Work Phone: [facility] Comment on above: Hyperuricemia; Benign essential hypertension Start: 12-06-2024 End: 12-06-2024 Office outpatient visit 15 minutes Jada A Felter [employer] CLERK-CONTINUOUS IMPROVEMENT CONSULTANT Work Phone: [facility] Comment on above: Rash and other nonsp ecific skin eruption Start: 12-06-2024 End: 12-06-2024 ambulatory JADA A FELTER Not Available Start: 12-06-2024 End: 12-06-2024 Bamboo flowsheet Jada A Felter [employer] CONTRACT CLERK-CONTINUOUS IMPROVEMENT CONSULTANT Work Phone: [facility] Start: 12-06-2024 End: 12-06-2024 Bamboo flowsheet Jada A Felter [employer] CONTRACT CLERK-CONTINUOUS IMPROVEMENT CONSULTANT Work Phone: [facility] Start: 11-22-2024 End: 11-22-2024 Patient encounter procedure Jada A Felter [employer] CONTRACT CLERK-CONTINUOUS IMPROVEMENT CONSULTANT Work Phone: [facility] Comment on above: Rash and other nonsp ecific skin eruption Start: 11-22-2024 End: 11-22-2024 ambulatory JADA A FELTER Not Available Start: 11-22-2024 End: 11-22-2024 Bamboo flowsheet Jada A Felter [employer] CONTRACT CLERK-CONTINUOUS IMPROVEMENT CONSULTANT Work Phone: [facility] Start: 11-22-2024 End: 11-22-2024 Bamboo flowsheet Jada A Felter [employer] CONTRACT CLERK-CONTINUOUS IMPROVEMENT CONSULTANT Work Phone: [facility] Start: 11-01-2024 End: 11-01-2024 Office outpatient new 30 minutes Jada A Felter [employer] CONTRACT CLERK-CONTINUOUS IMPROVEMENT CONSULTANT Work Phone: [facility] Comment on above: Other atopic dermati tis; Rash and other nonspecific skin eruption Start: 11-01-2024 End: 11-01-2024 ambulatory JADA Aden FELTER Not Available Start: 11-01-2024 End: 11-01-2024 Bamboo flowsheet Jada Aden Felter [employer] CONTRACT CLERK-CONTINUOUS IMPROVEMENT CONSULTANT Work Phone: [facility] Start: 11-01-2024 End: 11-01-2024 Bamboo flowsheet Jada Aden Felter [employer] CONTRACT CLERK-CONTINUOUS IMPROVEMENT CONSULTANT Work Phone: [facility] Start: 10-06-2024 End: 10-06-2024 ambulatory DONNY Roman MCDONALD Not Available Start: 07-07-2024 End: 07-07-2024 ambulatory PAULA ARIZA Not Available Start: 07-07-2024 End: 07-07-2024 Office outpatient visit 25 minutes Jr. Paula Story DO Work Phone: [facility] Comment on above: Left wrist pain (Viola selvin Dx); Extensor carpi ulnaris tendinitis Start: 07-07-2024 End: 07-07-2024 Bamboo flowsheet Jr. Paula Story DO Work Phone: [facility] Start: 07-07-2024 End: 07-07-2024 Bamboo flowsheet Jr. Paula Story DO Work Phone: [facility] Start: 06-28-2024 End: 06-28-2024 ambulatory PAULA ARIZA Not Available Start: 06-09-2024 End: 06-09-2024 Office outpatient visit 25 minutes Jr. Paula Story DO Work Phone: [facility] Comment on above: Left wrist pain (Viola selvin Dx); Bone spur of other site; Tear of left scapholunate ligament, initial encounter Start: 06-09-2024 End: 06-09-2024 ambulatory PAULA ARIZA Not Available Start: 06-09-2024 End: 06-09-2024 Bamboo flowsheet Paula Yeison Stepanic DO Work Phone: [facility] Start: 06-09-2024 End: 06-09-2024 Bamboo flowsheet Paula Yeison Stepanic DO Work Phone: [facility] Start: 05-26-2024 End: 05-26-2024 Patient encounter procedure Monique Álvaro DO Work Phone: [facility] Comment on above: Left carpal tunnel s yndrome (Primary Dx); Limb weakness; Numbness; Paresthesia; Pain in extremity, unspecified extremity Start: 05-26-2024 End: 05-26-2024 ambulatory MONIQUE ÁLVARO Not Available Start: 05-26-2024 End: 05-26-2024 Bamboo flowsheet Monique Álvaro DO Work Phone: [facility] Start: 05-26-2024 End: 05-26-2024 Bamboo flowsheet Moniquemagui Rea DO Work Phone: [facility] Start: 05-19-2024 End: 05-19-2024 Bamboo flowsheet JrAmparo Paula Yeison Stepanic DO Work Phone: [facility] Start: 05-19-2024 End: 05-19-2024 Bamboo flowsheet Paula Yeison Stepanic DO Work Phone: [facility] Start: 05-19-2024 End: 05-19-2024 Office consultation new/estab patient 40 min JrAmparo Paula Yeison Stepanic DO Work Phone: [facility] Comment on above: Limb weakness (Prima ry Dx); Bone spur of other site; Numbness; Paresthesia; Pain in extremity, unspecified extremity Start: 05-19-2024 End: 05-19-2024 ambulatory PAULA ARIZA Not Available Start: 05-13-2024 End: 05-13-2024 Telephone encounter Donny Mcdonald MD Work Phone: [facility] Comment on above: Results Start: 05-12-2024 End: 05-12-2024 Office outpatient visit 15 minutes Donny Mcdonald MD Work Phone: [facility] Comment on above: Left wrist pain (Viola montalvo Dx) Start: 05-12-2024 End: 05-12-2024 ambulatory DONNY MCDONALD Not Available Start: 05-12-2024 End: 05-12-2024 Bamboo flowsheet Donny Mcdonald MD Work Phone: [facility] Start: 05-12-2024 End: 05-12-2024 Bamboo flowsheet Donny Mcdonald MD Work Phone: [facility] Start: 04-14-2024 End: 04-14-2024 Office outpatient visit 25 minutes Donny Mcdonald MD Work Phone: [facility] Comment on above: Benign essential hyp ertension (CMS/HCC); Hypertensive nephropathy (CMS/HCC); Microalbuminuria; Hyperuricemia; Non morbid obesity due to excess calories Start: 04-14-2024 End: 04-14-2024 ambulatory DONNY MCDONALD Not Available Start: 04-14-2024 End: 04-14-2024 Bamboo flowsheet Donny Mcdonald MD Work Phone: [facility] Start: 04-14-2024 End: 04-14-2024 Bamboo flowsheet Donny Mcdonald MD Work Phone: [facility] Start: 04-06-2024 End: 04-06-2024 Telephone encounter Donny Mcdonald MD Work Phone: [facility] Start: 01-03-2024 End: 01-03-2024 ambulatory Dilshad Whitaker Facility: [facility] Start: 01-03-2024 End: 01-03-2024 Patient encounter procedure Dilshad Whitaker [facility] Start: 12-02-2022 End: 12-02-2022 ambulatory Gloria Fish Other [employer] Other Start: 12-02-2022 Office outpatient vi sit 15 minutes Gloria Fish [facility] Start: 06-07-2022 End: 06-08-[address] DONNY MCDONALD Facility:H1 Start: 03-15-[address] DONNY MCDONALD Facil ity:H1 Procedures Date Procedure Procedure Detail Performing Clinician Start: 11-22-2024 SKIN / NAIL BIOPSY Maia 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 Work Phone: Start: 05-26-2024 End: 05-26-2024 Needle emg ea extremty w/paraspinl area complete Monique Rea DO Work Phone: Start: 06-07-[address] DONNY MCDONALD Comment on above: Performed By: #### P [facility] #### [facility] [address] [place] [address] Dr. Emilia Padilla Start: 04-28-2008 Colonoscopy Donny jacobsen MD Work Phone: Plan of Treatment Date Care Activity Detail Author Start: 01-04-2027 Screening for malignant neoplasm of colon [facility] Start: 10-31-2025 End: 10-31-2025 Patient encounter procedure 10/31/2025 3:05 PM EDT Office Visit [facility] [address] [place] [phone] Jada 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 [address] [place] [address] [facility] Start: 06-09-2025 End: 06-09-2025 Patient encounter procedure 06/09/2025 3:25 PM EST Office Visit [facility] [address] [place] [phone] Jada Up, AUTOMOBILE CONTRACT CLERK-CONTINUOUS IMPROVEMENT CONSULTANT [address] [place] [address] [facility] Start: 04-06-2025 End: 04-06-2025 Patient encounter procedure 04/06/2025 4:00 PM EDT Office Visit [facility] [address] [place] [address] Donny Mcdonald MD [address] [place] [address] (Fax) [facility] Start: 03-21-2025 Influenza vaccination Influenza Vaccine (Season Ended) [facility] Start: 12-06-2024 End: 12-06-2024 Patient encounter procedure [facility] Comment on above: Arrived Start: 11-22-2024 End: 11-22-2024 Patient encounter procedure 11/22/2024 3:55 PM EDT Office Visit [facility] [address] [place] [phone] Jada Up, AUTOMOBILE CONTRACT CLERK-CONTINUOUS IMPROVEMENT CONSULTANT [address] [place] [address] Arrived [facility] Comment on above: Arrived Start: 11-01-2024 End: 11-01-2024 Patient encounter procedure 11/01/2024 3:35 PM EDT Office Visit [facility] [address] [place] [phone] Jada Up, AUTOMOBILE CONTRACT CLERK-CONTINUOUS IMPROVEMENT CONSULTANT [address] [place] [address] Desquamated skin; Rash [facility] Comment on above: Desquamated skin; Rash Start: 10-06-2024 End: 10-06-2024 Patient encounter procedure [facility] Start: 09-14-2024 End: 04-14-2025 Comprehensive metabolic 2000 panel - Serum or Plasma Comprehensive metabolic panel Lab Routine Benign essential hypertension (CMS/HCC) Hypertensive nephropathy (CMS/HCC) Expected: 09/14/2024, Expires: 04/14/2025 [facility] Work Phone: Comment on above: Expected: 09/14/2024, Expires: Start: 09-14-2024 End: 04-14-2025 Lipid 1996 panel - Serum or Plasma Lipid panel Lab Routine Benign essential hypertension (CMS/HCC) Hypertensive nephropathy (CMS/HCC) Expected: 09/14/2024, Expires: 04/14/2025 [facility] Comment on above: Expected: 09/14/2024, Expires: Start: 09-14-2024 End: 04-14-2025 Urate [Mass/volume] in Serum or Plasma Uric acid Lab Routine Hyperuricemia Expected: 09/14/2024, Expires: 04/14/2025 [facility] Comment on above: Expected: 09/14/2024, Expires: Start: 07-07-2024 End: 07-07-2024 Patient encounter procedure 07/07/2024 2:45 PM EST Office Visit [facility] [address] [place] [address] Jr. Paula Story, DO [address] [place] [address] [facility] Start: 06-09-2024 End: 06-09-2024 Patient encounter procedure [facility] Comment on above: Arrived Start: 06-09-2024 End: 06-09-2025 MR Wrist - left WO contrast MR wrist left wo IV contrast Imaging Routine Left wrist pain Bone spur of other site Tear of left scapholunate ligament, initial encounter Expected: 06/09/2024 (Approximate), Expires: 06/09/2025 [facility] Work Phone: Comment on above: Expected: 06/09/2024 (Approximate), Expi res: 06/09/2025 Start: 05-26-2024 End: 05-26-2024 Patient encounter procedure [facility] Comment on above: Arrived Start: 05-19-2024 End: 05-19-2025 EMG AND NERVE CONDUCTION STUDY EMG AND NERVE CONDUCTION STUDY Neurology Routine Limb weakness Numbness Paresthesia Pain in extremity, unspecified extremity Expected: 05/19/2024 (Approximate), Expires: 05/19/2025 [facility] Work Phone: Comment on above: Expected: 05/19/2024 (Approximate), Expi res: 05/19/2025 Start: 05-19-2024 End: 05-19-2024 Patient encounter procedure 05/19/2024 8:30 AM EDT Office Visit [facility] [address] [place] [phone] Jr. Paula Story, DO [address] [place] [address] Bone spur of other site [facility] Comment on above: Bone spur of other site Start: 05-12-2024 End: 05-12-2024 Patient encounter procedure 05/12/2024 3:15 PM EDT Office Visit [facility] [address] [place] [address] Donny Mcdonald MD [address] [facility] [place] [address] (Fax) Arrived [facility] Comment on above: Arrived Start: 04-14-2024 End: 04-14-2024 Patient encounter procedure [facility] Comment on above: Benign essential hypertension (CMS/HCC); Hypertensive nephropathy (CMS/HCC); Microalbuminuria; Hyperuricemia; Non morbid obesity due to excess calories Start: 03-21-2024 Influenza vaccination Influenza Vaccine (#1) [facility] Start: 04-28-2018 Screening for malignant neoplasm of colon Colonoscopy [facility] Start: 1965 Screening for malignant neoplasm of colon [facility] Dermatopathology exam Dermatopat hology exam Pathology and Cytology Timed Rash and other nonspecific skin eruption Release Upon Ordering for 1 Occurrences starting 11/22/2024 [facility] Work Phone: Comment on above: Release Upon Ordering for 1 Occurrences starting 11/22/2024 Immunizations Immunization Date Immunization Notes Care Provider Wen magdaleno 08-15-2024 zoster vaccine recombinant Jada 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 Work Phone: [facility] 10-06-2021 influenza virus vaccine, unspecified formulation Dilshad Whitaker [facility] 04-25-2021 influenza, seasonal, injectable Donny Mcdonald MD Work Phone: [facility] 04-13-2020 influenza virus vaccine, unspecified formulation Dilshad Whitaker [facility] 04-13-2020 influenza, injectabl e, quadrivalent, preservative free Donny Mcdonald MD Work Phone: [facility] 06-09-2018 influenza virus vaccine, unspecified formulation Dilshad Whitaker [facility] 06-09-2018 influenza, injectabl e, quadrivalent, preservative free Donny Mcdonald MD Work Phone: [facility] Payers Date Payer Category Payer Managed Care O (unspecified) [id number] 2023 Private Health Insurance [id number] 1965 Unknown [id number] 2.16.84 [id number] 1965 Unknown [id number] 2.16.84 [id number] 1966 Unknown [id number] [id number] 1966 Unknown [id number] [id number] 1966 Unknown [id number] [id number] 1966 Unknown [id number] [id number] 1966 Unknown [id number] [id number] 1966 Unknown [id number] [id number] 1966 Unknown [id number] [id number] 1966 Unknown [id number] 2.16.840.1.514092.3.579.2.9 1966 Unknown [id number] [id number] 1966 Unknown [id number] [id number] 1966 Unknown [id number] [id number] 1966 Unknown [id number] [id number] 1966 Unknown [id number] 1958 Private Health Insurance [id number] 1958 Self-pay Social History Date Type Detail Facility Unknown if ever smoked [facility]istence [facility] Other Start: 03-20-2023 End: 09-29-2024 Sex Assigned At [facility] Start: 10-08-2023 End: 01-03-2024 Tobacco smoking status Never smoked tobacco (finding) [facility] Tobacco smoking status Never [facility] Start: 10-08-2023 Tobacco use and exposure Former smokeless tobacco user [facility] End: 10-20-2011 History of tobacco use Snuff User [facility] Start: 04-14-2024 End: 12-06-2024 Alcoholic beverage intake Current drinker of alcohol (finding) [facility] Start: 04-14-2024 End: 09-29-2024 Alcoholic beverage intake [facility] Within the last year , have you been afraid of your partner or ex-partner? No [facility] Do you belong to any clubs or organizations such as alevism groups, unions, fraternal or athletic groups, or school groups? Yes [...] assigned at Not on file [facility] How often do you nee d to have someone help you when you read instructions, pamphlets, or other written material from your doctor or pharmacy [SILS] Never [facility] Do you feel stress - tense, restless, nervous, or anxious, or unable to sleep at night because your mind is troubled all the time - these days [OSQ] Only a little [facility] Functional Status Date Assessment Result Facility 01-03-2024 Functional Status N/A [facility] Clinical Notes 12-02-2022 to 12-06-2024 JOSE Barboza - 12/06/2024 3:50 PM Jose Alberto Up [facility] - 11/22/2024 3:55 PM [facility] 11/01/2024 3:35 PM CASSIE Morin - 05/26/2024 3:30 PM EST Note Date & Type Note Facility 12-06-2024 History of Presen t illness Narrative Follow up Diagnosis: Rash unspecified. Drug eruption vs. Atopic Dermatitis Location: Trunk, and legs Last visit: 11/22/2024 Symptoms: None Status: Much improved Procedure performed: Punch biopsy Current treatment: Here today for pathology results and treatment Suture Removal Patient here for suture removal: No complaints of redness, drainage or swelling at site, compliant with wound care. Location: Right lower back All pertinent medical history, medications, and allergies were reviewed. General Exam: alert, oriented to person, place, and time, normal affect, well appearing A focused exam completed based on patient reported problems, see below: Skin Exam 1. RASH AND OTHER NONSPECIFIC SKIN ERUPTION Right lower back Clear today secondary to use of TAC Drug eruption vs. Atopic Dermatitis. If drug eruption, likely culprit is Allopurinol. Recommended broad spectrum sunscreen with SPF 30 or higher as this medication has a sun sensitivity profile. Atopic Dermatitis- Recommended Soap and Moisturizer handout given. For flares, plan to continue use of TAC 0.1% cream bid/prn. Follow up in six months. Next Visit: 6 months, follow up rash documented in this encounter [facility] 11-22-2024 History of Presen t illness Narrative Images from the original note were not included. Rash Location: back, legs Duration: months Severity: moderate Quality: itchy, denies burning Modifying Factors: none Associated symptoms: redness, bumps Current treatments: here for follow up, was told to call at last appt if rash reappeared Established patient All pertinent medical history, medications, and allergies were reviewed. General Exam: alert, oriented to person, place, and time, normal affect, well appearing Unaccompanied A focused exam completed based on patient reported problems, see below: Skin Exam 1. RASH AND OTHER NONSPECIFIC SKIN ERUPTION Right lower back [place] patches and plaques Lesion biopsy - Right lower back Type of biopsy: punch Informed consent: discussed and consent obtained Informed consent comment: The risks and benefits were discussed. Risks include, but are not limited to, bleeding, infection, scarring, pain, & nerve damage. An opportunity to ask questions prior to the procedure was permitted and questions were answered. Patient was prepped and draped in usual sterile fashion: Area cleansed with alcohol. Anesthesia: the lesion was anesthetized in a standard fashion Anesthetic: 1% lidocaine w/ epinephrine 1-100,000 buffered w/ 8.4% NaHCO3 Punch size: 4 mm (A biopsy by punch method was performed using a dermal punch) Suture size: 4-0 Suture type: nylon Suture type comment: Hemostasis was achieved with suture. Suture removal (days): 12 Hemostasis achieved with: suture Outcome: patient tolerated procedure well Post-procedure details: sterile dressing applied and wound care instructions given Post-procedure details comment: Emphasized the need to contact clinic for any signs of infection, uncontrollable bleeding, or complications. Dressing type: bandage Additional details: Amount of lidocaine used: 1.0 cc Number of sutures used: 2 Specimen sent for: H&E Photo taken Specimen A - Dermatopathology exam Differential Diagnosis: Drug eruption vs other Next Visit: 12 day s/r and follow up documented in this encounter [facility] 11-01-2024 History of Presen t illness Narrative Rash Location: generalized Duration: years Quality: itchy at times Associated symptoms: red Treatments tried: Prednisone Current treatments: none Patient states he's clear today. He states the rash appears when he is sick. Other Problem: peeling of the skin Location: hands Duration: 1-2 years Current treatment: none New patient All pertinent medical history, medications, and allergies were reviewed. General Exam: alert, oriented to person, place, and time, normal affect, well appearing Unaccompanied A focused exam completed based on patient reported problems, see below: Skin Exam 1. OTHER ATOPIC DERMATITIS Hands Scaly erythematous plaques +/- dyspigmentation, lichenification, excoriations. Clear today. Discussed that atopic dermatitis is a chronic condition that can be controlled but not cured. Start TAC 0.1 % cream bid prn when flared, hold if smooth/asymptomatic. Encouraged daily moisturizing and gentle cleansers to prevent flares. Notify office if flaring despite treatment. Plan to follow up in 1 year. triamcinolone (Kenalog) 0.1 % cream - Hands Apply topically 2 (two) times a day as needed for rash 2. RASH AND OTHER NONSPECIFIC SKIN ERUPTION Generalized Clear today. Advised patient to call for same day appointment if rash reappears. Related Procedures Ambulatory referral to Dermatology Next Visit: 1 year, follow up documented in this encounter [facility] 07-07-2024 History of Presen t illness Narrative Images from the original note were not included. HISTORY OF PRESENT ILLNESS: EST PT Wander Flowers is an 59 y.o. @ male. (EST PT) RECHECK (L) WRIST ; HERE FOR MRI RESULTS 07/08/24 IN [facility] XRAYS 05/12/24 IN [facility] MRI 07/08/24 IN [facility] (L) UE EMG 05/26/24 @ [facility] S/P [...] is normal. 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 documented in this encounter [facility] 06-09-2024 History of Presen t illness Narrative Images from the original note were not included. HISTORY OF PRESENT ILLNESS: EST PT Wander Flowers is an 59 y.o. @ male. (EST PT) RECHECK (L) WRIST ; HERE FOR (L) UE EMG RESULTS 05/26/24 @ [facility] XRAYS 05/12/24 IN [facility] NO MRI (L) UE EMG 05/26/24 @ [...] is normal. 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 documented in this encounter [facility] 05-26-2024 History of Presen t illness Narrative Images from the original note were not included. Reason for Appointment: EMG Patient: Wander Flowers : 1965 EMG Computer: [employer] Referring Physician: Dr. Paula Story EMG: CRISTINA congressional assistant: Tomasz Keller RT(R) Office Location: [place] Reason for EMG: c/o numbness/tingling in left hand, pain in left wrist. No hx of DM. Not on blood thinners. Comments: Procedure was explained to the patient who expressed understanding. Patient appeared to have tolerated the test well despite some discomfort due to the nature of the test. documented in this encounter [facility] 05-19-2024 History of Presen t illness Narrative [...] Medical History: Diagnosis Date Chest pain negative AR Essential hypertension, benign (CMS/HCC) Gout Pain in [...] supplier standards were given to the patient. [facility] patient agreement was completed at time of dispensement. The patient stated that the device was comfortable when fitted in the office. At the time of dispensement, the device was suitable and not substandard. Paula Story D.O. documented in this encounter [facility] 05-13-2024 Telephone encount er Note Patient was notified and verbalized understanding. He/She knows to contact office with any further questions. I sent the referral. He would like anti-inflammatory if you can send that in please and he is going to get the gel too while he is there [facility] 05-13-2024 Miscellaneous Notes Formattin g of this [...] And other option would be to use xfrt-efr-apwwojw diclofenac gel a pea-sized amount rubbed into the area near the spur if he finds the last part of his forearm bone just below the thumb right at the edges where this spur is and if he were just aerobic good pea-sized amount into that area he should get it. documented in this encounter [facility] 05-13-2024 Telephone encount er Note Celine can [...] And other option would be to use wily-mwj-mwgubnf diclofenac gel a pea-sized amount rubbed into the area near the spur if he finds the last part of his forearm bone just below the thumb right at the edges where this spur is and if he were just aerobic good pea-sized amount into that area he should get it. [facility] 05-12-2024 History of Presen t illness Narrative [...] icing this and putting it into an iivj-sbk-mkojqmi wrist splint temporarily. He does actively lift [...] views left; Future documented in this encounter [facility] 04-14-2024 History of Presen t illness Narrative [...] if any problems occur. (Utilizing the original guidelines or the 2020 office/outpatient code guidelines [...] aerobic exercise program. documented in this encounter [facility] 04-06-2024 Telephone encount er Note Allopurinol sent [facility] 04-06-2024 Miscellaneous Notes Formattin g of this note might be different from the original. Allopurinol sent Lawrence called, we had to move his appointment and he is out of his gout medication and is having a flare. He is requesting a refill to [facility] in [place]. documented in this encounter [facility] 04-06-2024 Telephone encount er Note Lawrence called, we had to move his appointment and he is out of his gout medication and is having a flare. He is requesting a refill to [facility] in [place]. [facility] 12-02-2022 Evaluation note Encounter Date Diagnosis Assessment [...] no improvement in 2 to 3 days Existence Before [facility] Other Evaluation + Plan note No data available for this section [facility] Evaluation note* Diagnosis Benign essential hypertension (CMS/HCC) Essential hypertension, benign Hypertensive nephropathy (CMS/HCC) Unspecified hypertensive kidney disease with chronic kidney disease stage I through stage IV, or unspecified Microalbuminuria Proteinuria Hyperuricemia Other abnormal blood chemistry Non morbid obesity due to excess calories documented in this encounter [facility]* Diagnosis Bone spur of other site documented in this encounter [facility]* Diagnosis Left wrist pain- Primary Pain in joint, forearm Left wrist pain Pain in joint, forearm documented in this encounter [facility]* Diagnosis Limb weakness- Primary Other musculoskeletal symptoms referable to limbs Bone spur of other site Numbness Disturbance of skin sensation Paresthesia Disturbance of skin sensation Pain in extremity, unspecified extremity documented in this encounter [facility]* Diagnosis Left carpal tunnel syndrome- Primary Carpal tunnel syndrome Limb weakness Other musculoskeletal symptoms referable to limbs Numbness Disturbance of skin sensation Paresthesia Disturbance of skin sensation Pain in extremity, unspecified extremity documented in this encounter [facility]* Diagnosis Left wrist pain- Primary Pain in joint, forearm Bone spur of other site Tear of left scapholunate ligament, initial encounter documented in this encounter [facility]* Diagnosis Hyperuricemia Other abnormal blood chemistry Benign essential hypertension (CMS/HCC) Essential hypertension, benign Hypertensive nephropathy (CMS/HCC) Unspecified hypertensive kidney disease with chronic kidney disease stage I through stage IV, or unspecified Microalbuminuria Proteinuria Hyperuricemia Other abnormal blood chemistry Non morbid obesity due to excess calories documented in this encounter [facility]* Diagnosis Left wrist pain- Primary Pain in joint, forearm Extensor carpi ulnaris tendinitis documented in this encounter [facility]* Diagnosis Other atopic dermatitis Rash and other nonspecific skin eruption documented in this encounter [facility]* Diagnosis Rash and other nonspecific skin eruption documented in this encounter [facility]* Diagnosis Rash and other nonspecific skin eruption documented in this encounter [facility]* Diagnosis Hyperuricemia Other abnormal blood chemistry Benign essential hypertension Essential hypertension, benign documented in this encounter [facility] general Narrative - Reported* Type Description Date Medical History HTN Medical History gout Hospitalization History chest pain Existence Before [facility] Other Hospital Discharge instructions No data available for this section [facility] Progress note No data available for this section [facility] Reason for visit Narrative* Other Medical (Routine) - Closed Specialty Diagnoses / Procedures Referred By Contac t Referred To Contact Neurology Diagnoses Limb weakness Numbness Paresthesia Pain in extremity, unspecified extremity Procedures EMG AND NERVE CONDUCTION STUDY Jr. Paula Story DO [address] [facility] [address] [place] [address] Phone: tel: fax: Dimitri Quispe MD [address] [place] [address] Phone: tel: fax: Referral ID Status Reason Start Date Expiration Date V isits Requested Visits Authorized [id number] Closed Perform Procedure 05/19/2024 11/15/2024 1 1 [facility] Summary Purpose Family History No [...] and content) DATE CREATED AUTHOR 06/12/2022 [facility] DATE CREATED AUTHOR AUTHOR'S ORGANIZ ATION 01/04/2024 Noble Octaviano [facility] DATE CREATED AUTHOR AUTHOR'S ORGANIZ ATION 12/07/2024 [facility] dical Specialists EPIC REASON FOR VISIT (unrecogniz ed section and content) Reason Onset Date Comments Results 05/13/2024 Reason Comments Wrist Pain Reason Comments Pain Specialty Diagnoses / Procedures Referred By Contact Referred To Contact Orthopaedic Surgery Diagnoses Bone spur of other site Donny Mcdonald MD [address] [facility] [address] [place] [address] Phone: tel: fax: Jr. Paula Story DO 112 [facility] [address] [place] [address] Phone: tel: fax: Referral ID Status Reason Start Date Expiration Date V isits Requested Visits Authorized [id number] Closed Specialty Services Required 05/13/2024 11/09/2024 1 1 Reason Comments Rash Skin Problem Specialty Diagnoses / Procedures Referred By Contac t Referred To Contact Dermatology Diagnoses Desquamated skin Rash Procedures ND OFFICE/OUTPATIENT NEW HIGH MDM 60 MINUTES Donny Mcdonald MD [address] [facility] [address] [place] [address] Phone: tel: fax: Freda Malhotra MD [address] [facility] [address] [place] [address] Phone: tel: fax: Referral ID Status Reason Start Date Expiration Date V isits Requested Visits Authorized [id number] Closed Consult and Treat 10/06/2024 04/04/2025 1 1 Reason Comments Med Refill Care Teams (unrecognized sec tion and content) Quality Control Analyst Relationship Specialty Start Date End Date Donny Mcdonald MD [address] [place] [address] (Fax) PCP - General Family Medicine 05/20/24 Quality Control Analyst Relationship Specialty Start Date End Date Donny Mcdonald MD (Fax) PCP - General Family Medicine 01/30/23 Quality Control Analyst Relationship Specialty Start Date End Date Donny Mcdonald MD [address] [place] [address] PCP - General Family Medicine 01/30/23 FOR [...] BE BASED ON THE PRIMARY CLINICAL RECORDS. [employer] provides no warranty or guarantee of the accuracy or completeness of information in this document.
--- NOTE | 2025-01-04 22:52 | CT_ITS ---
[address] [address] Patient Name: MORRIS OLIVAREZ MRN: [id number] date: 1965 Sex: M Assigned Patient Location: ER Current Patient Location: ER Accession/Order Number: [id number] Exam Date: 01/04/2025 23:16 Report Date: 01/04/2025 23:23 At the request of: ALEKSANDAR MCKEON MD Procedure: CT abdomen pelvis w con CT abdomen pelvis w con 01/04/2025 11:10 PM SIGNS AND SYMPTOMS: ^abdominal pain \S.br\ TECHNIQUE: Multidetector ct axial images of the abdomen and pelvis were obtained with IV contrast. Multiplanar reformats were performed and reviewed to further define anatomy and possible pathology. CT was performed with one or more of the following dose reduction techniques: Automated exposure control, adjustment of the mA and/or kV according to patient size, or use of iterative reconstruction technique. COMPARISON: None. FINDINGS: Lower Chest: Within normal limits. ABDOMEN: Liver: Within normal limits. Bile Ducts: Normal caliber. Gallbladder: No calcified gallstones. Normal caliber wall. Pancreas: Within normal limits. Spleen: Within normal limits. Adrenals: Within normal limits. Kidneys: Within normal limits. Pelvis: Reproductive Organs: No pelvic masses. Ureters: Within normal limits. Bladder: Within normal limits. Bowel: Normal caliber. There are a few uncomplicated colonic diverticula. There is a normal appendix in the right lower quadrant. Mesenteric Lymph Nodes: No enlarged mesenteric lymph nodes. Peritoneum: No ascites or free air, no fluid collection. Vessels: within normal limits Retroperitoneum: Within normal limits. Abdominal Wall: Within normal limits. Bones: Degenerative changes are noted in the thoracolumbar spine, hips, and sacroiliac joints. CT/CT abdomen pelvis w con IMPRESSION: No acute intra-abdominal pathology. There is a normal appendix in the right lower quadrant. No free fluid or free air. Impression dictated by: Michael Vuong M.D. 01/04/2025 11:23 PM Dictation Location: [place] [address] Electronically authenticated by: [id number] Y Date: 01/04/2025 23:23
--- NOTE | 2025-01-04 22:53 | ED_ITS ---
HPI - Abdominal Pain General Chief Complaint: Abdominal Pain Stated Complaint: abdominal pain Time Seen by Provider: 01/04/25 22:26 Source: patient Mode of arrival: walk-in Limitations: no limitations History of Present Illness HPI narrative: patient presents complaining of abdominal pain for past 3-4 days. Did improve some and yesterday he did not each much. Today pain has increased again. Believes similar pain 4 years ago related to an ulcer. Denies nausea or vomiting or constipation . No fever or respiratory symptoms Related Data Allergies Allergy/AdvReac Type Severity Reaction Status Date / Time No Known Drug Allergies Allergy Verified 01/04/25 22:19 Review of Systems ROS Status of ROS 10 or more systems reviewed and unremark able except as noted in history and below PFSH PFSH Social History Little interest or pleasure in doing things: not at all Feeling down, depressed, or hopeless: not at all Exam Constitutional Vital Signs, click to edit/add: Last Vital Signs Temp 98.6 F 01/04/25 22:20 Pulse 54 L 01/04/25 22:20 Resp 18 01/04/25 22:20 BP 140/86 01/04/25 23:30 Pulse Ox 97 01/04/25 23:30 O2 Del Method Room Air 01/04/25 22:20 Common normals: average body habitus, oriented x3, no limitations, healthy appearing, alert and well nourished General appearance: in distress HENIA Common normals: normocephalic and head/scalp atraumatic Respiratory Common normals: normal respiratory effort, no retractions, no use of accessory muscles and clear to auscultation bilaterally Cardio Common normals: regular rate, regular rhythm, S1 normal heart sound and S2 normal heart sound GI Other: mild epigastric tenderness. No guarding Extremity Common normals: normal to inspection and full ROM Neuro Common normals: oriented x3, CN's II-XII intact bilaterally, moves all extremities and no focal motor deficits Psych Appearance: grossly normal Course Vital Signs Vital signs: Vital Signs Blood Pressure 136/88 01/04/25 22:18 Pulse Oximetry 98 01/04/25 22:18 Temperature 98.6 F 01/04/25 22:20 Pulse Rate 54 L 01/04/25 22:20 Respiratory Rate 18 01/04/25 22:20 Blood Pressure 140/86 01/04/25 23:30 Pulse Oximetry 97 01/04/25 23:30 Oxygen Delivery Method Room Air 01/04/25 22:20 MDM - Abdominal Pain MDM Narrative Medical decision making narrative: patient presents complaining of abdominal pain over past 3-4 days. Did improve some but increased again tonight. Does drink ETOH. States he drinks more than he should. No ETOH in 3 days. No withdrawal. Exam with mild epigastric tenderness. No guarding. CT without acute findings. normal bile ducts and pancreas. Labs with elevated ALT, AST, alk phos and T. bili at 2.4and severely elevated lipase. Pain controlled with dilaudid. Discussed with the hospitalist who requested a triglyceride level. Triglyceride ordered placed and patient accepted for admission Lab Data Labs: Lab Results 01/04/25 Range/Units 22:35 WBC 9.3 (4.0-11.0) 10^3/uL RBC 5.41 (4.70-6.10) 10^6/uL Hgb 16.4 (14.0-18.0) g/dL Hct 46.9 (42.0-54.0) % MCV 86.7 (80.0-94.0) fL MCH 30.3 (25.9-34.0) pg MCHC 35.0 (29.9-35.2) g/dL RDW 13.9 (11.0-15.0) % Plt Count 146 L (150-450) 10^3/uL MPV 10.0 (9.5-13.5) fL Neut % (Auto) 63.9 (43.0-75.0) % Lymph % (Auto) 25.1 (20.5-60.0) % [place] % (Auto) 9.2 (1.7-12.0) % Eos % (Auto) 1.2 (0.9-7.0) % Baso % (Auto) 0.4 (0.2-2.0) % Neut # (Auto) 5.9 (1.4-6.5) 10^3/uL Lymph # (Auto) 2.3 (1.2-3.8) 10^3/uL [place] # (Auto) 0.9 H (0.3-0.8) 10^3/uL Eos # (Auto) 0.1 (0.0-0.7) 10^3/uL Baso # (Auto) 0.0 (0.0-0.1) 10^3/uL Abs Immat Gran (auto) 0.02 (0.00-0.03) 10^3/uL Imm/Tot Granulo (auto) 0.2 (0.0-0.5) % Sodium 140 (136-145) mmol/L Potassium 3.2 L (3.5-5.1) mmol/L Chloride 102 (98-107) mmol/L Carbon Dioxide 25.2 (21.0-32.0) mmol/L Anion Gap 16.0 BUN 14.0 (7.0-18.0) mg/dL Creatinine 0.96 (0.70-1.30) mg/dL Est GFR ( Amer) >60 (>=60 mL/min/1.73m^2) Est GFR (Non-Af Amer) >60 (>=60 mL/min/1.73m^2) BUN/Creatinine Ratio 14.6 Glucose 137 H (74-106) mg/dL Lactate 1.6 (0.4-2.0) mmol/L Calcium 9.3 (8.5-10.1) mg/dL Total Bilirubin 2.4 H (0.2-1.0) mg/dL AST 713 H* (15-37) U/L ALT 616 H* (16-63) U/L Alkaline Phosphatase 193 H (46-116) U/L Troponin I High Sens <4.0 L (4.0-76.1) pg/mL Total Protein 7.2 (6.4-8.2) g/dL Albumin 3.9 (3.4-5.0) g/dL Globulin 3.3 g/dL Albumin/Globulin Ratio 1.2 Lipase 2228.0 H* (16.0-77.0) U/L Discharge Plan Discharge Chief Complaint: Abdominal Pain Clinical Impression: Abdominal pain, Pancreatitis Patient Disposition: Admitted as Observation
[2025-01-04 22:58] LABS: Basophils Percent Auto 0.4 % (0.2-2.0); Eosinophils Absolute Auto 0.1 10^3/uL (0.0-0.7); Eosinophils Percent Auto 1.2 % (0.9-7.0); Hematocrit 46.9 % (42.0-54.0); Hemoglobin 16.4 g/dL (14.0-18.0); Immature Granulocytes Abs Auto 0.02 10^3/uL (0.00-0.03); Immature Granulocytes Pct Auto 0.2 % (0.0-0.5); Lymphocytes Absolute Auto 2.3 10^3/uL (1.2-3.8); Lymphocytes Percent Auto 25.1 % (20.5-60.0); Mean Corpuscular Hemoglobin 30.3 pg (25.9-34.0); Mean Corpuscular Volume 86.7 fL (80.0-94.0); Monocytes Absolute Auto 0.9 10^3/uL (0.3-0.8); Monocytes Percent Auto 9.2 % (1.7-12.0); Neutrophils Absolute Auto 5.9 10^3/uL (1.4-6.5); Neutrophils Percent Auto 63.9 % (43.0-75.0); Platelet Count 146 10^3/uL (150-450); Red Blood Count 5.41 10^6/uL (4.70-6.10); Red Cell Distribution Width 13.9 % (11.0-15.0); White Blood Count 9.3 10^3/uL (4.0-11.0)
[2025-01-04 23:12] LABS: Lactate/Lactic Acid 1.6 mmol/L (0.4-2.0)
[2025-01-04] MEDS: 0.9 % SODIUM CHLORIDE 1,000 ML 999 ML IV (23:15)
[2025-01-04] MEDS: PANTOPRAZOLE SODIUM 40 MG VIAL IV (23:16)
[2025-01-04 23:22] LABS: Albumin Globulin Ratio 1.2; Albumin Level 3.9 g/dL (3.4-5.0); Alkaline Phosphatase 193 U/L (46-116); BUN Creatinine Ratio 14.6; Bilirubin Total 2.4 mg/dL (0.2-1.0); Calcium 9.3 mg/dL (8.5-10.1); Carbon Dioxide 25.2 mmol/L (21.0-32.0); Chloride 102 mmol/L (98-107); Estimated GFR (African America >60 (>=60 mL/min/1.73m^2); Estimated GFR (Non-African Ame >60 (>=60 mL/min/1.73m^2); Globulin 3.3 g/dL; Glucose 137 mg/dL (74-106); Potassium 3.2 mmol/L (3.5-5.1); Sodium 140 mmol/L (136-145); Total Protein 7.2 g/dL (6.4-8.2); Troponin I High Sensitivity <4.0 pg/mL (4.0-76.1)
[2025-01-04 23:23] LABS: Aspartate Amino Transferase 713 U/L (15-37)
[2025-01-04 23:24] LABS: Alanine Aminotransferase 616 U/L (16-63)
[2025-01-04] MEDS: HYDROMORPHONE HCL 1 MG/ML CARTRIDGE 0.5 MG IVP (23:46)
[2025-01-05] VITALS (12 sets, daily range): BP systolic 122–167; BP diastolic 76–98; PULSE 57–66; TEMP 36.7–36.9; O2SAT 93–96; BMI 33.4
--- NOTE | 2025-01-05 00:27 | PC.NURSE ---
this patient updated that we are waiting on a room number for you this patient still unable to provide a urine sample. this patient rates his pain at 2/10 now this patient voices no concerns, needs and this patient shows no signs of distress
[2025-01-05 00:33] LABS: Triglycerides 69 mg/dL (<=150)
[2025-01-05 00:46] LABS: C Reactive Protein <0.50 mg/dL (<=0.50)
--- OUTSIDE RECORDS SUMMARY | 2025-01-05 00:50 | XMS_ITS | CCD ---
Author Organization [facility] Care Team Providers Care Filament Coil Winder Name Role Phone TAMARA, DR ROSENBAUM Admitting Unavailable HEMEYER, DR ROSENABUM Attending Unavailable HEMEYER, DR ROSENBAUM Primary Care Unavailable HEMEYER, DR ROSENBAUM Admitting Unavailable HEMEYER, DR ROSENBAUM Attending Unavailable HEMETORI, DR ROSENBAUM Primary Care Unavailable GLENNYYER, DR ROSENBAUM Consulting Unavailable Gloria Fish Unavailable NONE, XXXX Primary Care Physician Unavailab Dilshad Chaney Attending Unavailable Donny Mcdonald MD Primary Care Provider Donny Mcdonald MD Primary Care Provider [phone] Donny Mcdonald MD Primary Care Provider Donny Mcdonald MD Primary Care Provider [phone] Donny Mcdonald MD Primary Care Provider DONNY [...] reactions to drug Eruption of skin (disorder) [facility] (20 sources) Nirmatrelvir-Rit onavir Allergy to substance 3 Rash [facility] (20 sources) Indomethacin Drug Allergy 4 Rash [facility] Medications Current Medications Medication Drug [...] / neomycin 3.5 mg/ml / polymyxin b 85126 unt/ml otic suspension (1 source) Aminoglycoside Antibacterial, [...] 2 Specimen sent for: H&E Photo taken [facility] [employer] MR WRIST LEFT WO IV CONTRAST [...] NCS LUE Minimal left [facility] tunnel [facility] N[facility] 7-8 Nerveson 05-26-2024 EMG/ NCS LUE Minimal left carpal tunnel syndrome [facility] XR WRIST 1-2 VIEWS LEFTon [...] Electronically Signed Brendan Calzada D.O. 2024-05-12 16:53:21 [facility] [employer] Radiology Study observation (narrative) [facility] [employer] XR Wrist - left 2 ViewsOrder ed By: Brendan Calzada on 05-12-2024 [facility] [employer] Work Phone: Ambulatory Visit Summaryon 0 [...] a day Duration: 7 Days Pickup at [facility]/pharmacy #[id number] Unchanged allopurinol (allopurinol 300 mg Tab) Unchanged metoprolol (Lopressor 25 mg oral tablet) Pharmacy Information [facility]/pharmacy #[id number]: [address], [place] [id number] [phone] Allergies Paxlovid (Rash) Patient Survey You may receive a survey via text or e-mail asking about your office visit. Please share your experience with us by completing your survey. We appreciate your feedback and thank you for choosing us for your care. Normal [facility] Family Medicine Office/Clini c Noteon [...] influenza virus vaccine, inactivated 06/09/2018 Recorded Normal [facility] Comment on above: Result Comment: Elec tronically Signed By: Sherman SOTO, Dilshad Aden\.br\Date and Time Signed: 01/03/24 12:38 EDT LIPID PROFILEon 06-07-2022 CHOL-HDL RATIO NORM SEE BELOW Normal [facility] Comment on above: Result Comment: 3.3 - 4.4 LOW RISK 4.4 - 7.1 AVERAGE RISK 7.1 - 11.0 MODERATE RISK >11.0 HIGH RISK Performed By: #### C MP, URIC, LIPID #### [facility] [address] [address] [address] Emilia Padilla Cholesterol [Mass/Vol] 189 mg/dL Normal <=200 [facility] Comment on above: Performed By: #### C MP, URIC, LIPID #### [facility] [address] [address] [address] Emilia Padilla Cholesterol in HDL [Mass/Vol] 51 mg/dL Normal 40-60 [facility] Comment on above: Performed By: #### C MP, URIC, LIPID #### [facility] [address] [address] [address] Emilia Padilla Cholesterol in LDL [Mass/Vol] 120.2 mg/dL Normal [facility] Comment on above: Performed By: #### C MP, URIC, LIPID #### [facility] [address] [address] [address] Emilia Padilla Cholesterol.total/C holesterol in HDL [Mass ratio] 3.7 {ratio} Normal [facility] Comment on above: Performed By: #### C MP, URIC, LIPID #### [facility] [address] [address] [address] Emilia Padilla HDL NORMAL > or = 60 mg/dl - LO W CARDIOVASCULAR RISK <40 mg/dl - HIGH CARDIOVASCULAR RISK Normal [facility] Comment on above: Performed By: #### C MP, URIC, LIPID #### [facility] [address] [address] [address] Emilia Padilla LDL CALC NORMAL SEE BELOW Normal [facility] Comment on above: Result Comment: <100 mg/dl OPTIMAL 100 - 129 mg/dl NEAR OR ABOVE OPTIMAL 130 - 159 mg/dl BORDERLINE HIGH 160 - 189 mg/dl HIGH >190 mg/dl VERY HIGH Performed By: #### C MP, URIC, LIPID #### [facility] [address] [address] [address] Emilia Padilla Triglyceride [Mass/Vol] 89 mg/dL Normal <=150 [facility] Comment on above: Performed By: #### C MP, URIC, LIPID #### [facility] [address] [address] [address] Emilia Padilla VLDL CALC 17.8 mg/dL Normal [facility] Comment on above: Performed By: #### C MP, URIC, LIPID #### [facility] [address] [address] [address] Emilia Padilla PROF 14(COMP METB)on 022 Albumin [Mass/Vol] 4.0 g/dL Normal 3.4-5.0 [facility] Comment on above: Performed By: #### C MP, URIC, LIPID #### [facility] [address] [address] [address] Emilia Padilla Albumin/Globulin [Mass ratio] 1.2 {ratio} Normal [facility] Comment on above: Performed By: #### C MP, URIC, LIPID #### [facility] [address] [address] [address] Emilia Padilla ALP [Catalytic activity/Vol] 81 U/L Normal 46-116 [facility] Comment on above: Performed By: #### C MP, URIC, LIPID #### [facility] [address] [address] [address] Emilia Padilla ALT [Catalytic activity/Vol] 56 U/L Normal 16-63 [facility] Comment on above: Performed By: #### C MP, URIC, LIPID #### [facility] [address] [address] [address] Emilia Padilla Anion gap [Moles/Vol] 9.2 mmol/L Normal [facility] Comment on above: Performed By: #### C MP, URIC, LIPID #### [facility] [address] [address] [address] Emilia Padilla AST [Catalytic activity/Vol] 33 U/L Normal 15-37 [facility] Comment on above: Performed By: #### C MP, URIC, LIPID #### [facility] [address] [address] [address] Emilia Padilla Bilirubin [Mass/Vol] 1.0 mg/dL Normal 0.2-1.0 [facility] Comment on above: Performed By: #### C MP, URIC, LIPID #### [facility] [address] [address] [address] Emilia Padilla Calcium [Mass/Vol] 8.9 mg/dL Normal 8.5-10.1 [facility] Comment on above: Performed By: #### C MP, URIC, LIPID #### [facility] [address] [place] [address] Dr. Emliia Padilla Chloride [Moles/Vol] 103 mmol/L Normal 98-107 [facility] Comment on above: Performed By: #### C MP, URIC, LIPID #### [facility] [address] [place] [address] Dr. Emilia Padilla CO2 [Moles/Vol] 28.7 mmol/L Normal 21.0-32.0 [facility] Comment on above: Performed By: #### C MP, URIC, LIPID #### [facility] [address] [place] [address] Dr. Emilia Padilla Creatinine [Mass/Vol] 0.84 mg/dL Normal 0.70-1.30 [facility] Comment on above: Performed By: #### C MP, URIC, LIPID #### [facility] [address] [place] [address] Dr. Emilia Padilla EGFR-AF BULGARIAN >60 Normal >=60 [facility] Comment on above: Performed By: #### C MP, URIC, LIPID #### [facility] [address] [place] [address] Dr. Emilia Padilla EGFR-NON AF BULGARIAN >60 Normal >=60 [facility] Comment on above: Performed By: #### C MP, URIC, LIPID #### [facility] [address] [place] [address] Dr. Emilia Padilla Globulin (S) [Mass/Vol] 3.4 g/dL Normal [facility] Comment on above: Performed By: #### C MP, URIC, LIPID #### [facility] [address] [place] [address] Dr. Emilia Padilla Glucose [Mass/Vol] 104 mg/dL Normal 74-106 [facility] Comment on above: Performed By: #### C MP, URIC, LIPID #### [facility] [address] [place] [address] Dr. Emilia Padilla Potassium [Moles/Vol] 3.9 mmol/L Normal 3.5-5.1 [facility] Comment on above: Performed By: #### C MP, URIC, LIPID #### [facility] [address] [place] [address] Dr. Emilia Padilla Protein [Mass/Vol] 7.4 g/dL Normal 6.4-8.2 [facility] Comment on above: Performed By: #### C MP, URIC, LIPID #### [facility] [address] [place] [address] Dr. Emilia Padilla Sodium [Moles/Vol] 137 mmol/L Normal 136-145 [facility] Comment on above: Performed By: #### C MP, URIC, LIPID #### [facility] [address] [place] [address] Dr. Emilia Padilla Urea nitrogen [Mass/Vol] 11.0 mg/dL Normal 7.0-18.0 [facility] Comment on above: Performed By: #### C MP, URIC, LIPID #### [facility] [address] [place] [address] Dr. Emilia Padilla Urea nitrogen/Creatinine [Mass ratio] 13.1 mg/mg Normal [facility] Comment on above: Performed By: #### C MP, URIC, LIPID #### [facility] [address] [place] [address] Dr. Emilia Padilla URIC ACID SERUMon 06-07-2022 Urate [Mass/Vol] 5.2 mg/dL Normal 3.5-7.2 [facility] Comment on above: Performed By: #### C MP, URIC, LIPID #### [facility] [address] [place] [address] Dr. Emilia Padilla Vital Signs Date Time Vital Sign Value Performing Clinician Facility 05-19-2024 08:35-0400 Body height 182.9 cm Jr. Stepanic DO Work Phone: [facility] 05-19-2024 08:35-0400 Body mass index (BMI) [Ratio] 31.87 kg/m2 Jr. Stepanic DO Work Phone: [facility] 05-19-2024 08:35-0400 Body weight 106.59 kg Jr. Story DO Work Phone: [facility] 05-12-2024 15:08-0400 Body height 182.9 cm Donny Mcdonald MD Work Phone: [facility] 05-12-2024 15:08-0400 Body mass index (BMI) [Ratio] 33.09 kg/m2 Donny Mcdonald MD Work Phone: [facility] 05-12-2024 15:08-0400 Body weight 110.68 kg Donny Mcdonald MD Work Phone: [facility] 04-14-2024 15:45-0400 Body height 182.9 cm Donny Mcdonald MD Work Phone: [facility] 04-14-2024 15:45-0400 Body mass index (BMI) [Ratio] 33.09 kg/m2 Donny Mcdonald MD Work Phone: [facility] 04-14-2024 15:45-0400 Body weight 110.68 kg Donny Mcdonald MD Work Phone: [facility] 04-14-2024 15:45-0400 Diastolic blood pressure 78 mm[Hg] Donny Mcdonald MD Work Phone: [facility] 04-14-2024 15:45-0400 Heart rate 58 /min Donny Mcdonald MD Work Phone: [facility] 04-14-2024 15:45-0400 SaO2% (BldA) [Mass fraction] 97 % Donny Mcdonald MD Work Phone: [facility] 04-14-2024 15:45-0400 Systolic blood pressure 128 mm[Hg] Donny Mcdonald MD Work Phone: [facility] 01-03-2024 12:11-0400 Blood Pressure Location Dilshad Whitaker [facility] 01-03-2024 12:11-0400 Body temperature 97.52 [degF] Dilshad Whitaker [facility] 01-03-2024 12:11-0400 Diastolic blood pressure 84 mm[Hg] Dilshad Whitaker [facility] 01-03-2024 12:11-0400 Heart rate 67 /min Dilshad Whitaker [facility] 01-03-2024 12:11-0400 SaO2% (BldA) [Mass fraction] 97 % Dilshad Whitaker [facility] 01-03-2024 12:11-0400 Systolic blood pressure 132 mm[Hg] Dilshad Whitaker [facility] 12-02-2022 15:40-0400 Body height 182.88 cm Gloria Fish Other [employer] Other 12-02-2022 15:40-0400 Body mass index (BMI) [Ratio] 34.23 kg/m2 Gloria Fish Other [employer] Other 12-02-2022 15:40-0400 Body temperature 97.4 [degF] Gloria Fish Other [employer] Other 12-02-2022 15:40-0400 Body weight 114.49 kg Gloria Fish Other [employer] Other 12-02-2022 15:40-0400 Diastolic blood pressure 96 mm[Hg] Gloria Fish Other [employer] Other 12-02-2022 15:40-0400 Respiratory rate 18 /min Gloria Fish Other [employer] Other 12-02-2022 15:40-0400 SaO2% (BldA) [Mass fraction] 99 % Gloria Fish Other [employer] Other 12-02-2022 15:40-0400 Systolic blood pressure 160 mm[Hg] Gloria Fish Other [employer] Other Encounters Encounter Date Encounter Type Care Provider Facility Start: 01-04-2025 End: 01-04-2025 Nicole Mcdonald MD Work Phone: [facility] Comment on above: Hyperuricemia; Benign essential hypertension Start: 12-06-2024 End: 12-06-2024 Office outpatient visit 15 minutes Jada A Felter [employer]WAREHOUSE DEVELOPER Work Phone: [facility] Comment on above: Rash and other nonsp ecific skin eruption Start: 12-06-2024 End: 12-06-2024 ambulatory JADA A FELTER Not Available Start: 12-06-2024 End: 12-06-2024 Bamboo flowsheet Jada A Felter [employer] COACH[employer]DATAWAREHOUSE DEVELOPER Work Phone: [facility] Start: 12-06-2024 End: 12-06-2024 Bamboo flowsheet Jada A Felter [employer] COACH-DATAWAREHOUSE DEVELOPER Work Phone: [facility] Start: 11-22-2024 End: 11-22-2024 Patient encounter procedure Jada A Felter [employer]ACH[employer]DATAWAREHOUSE DEVELOPER Work Phone: [facility] Comment on above: Rash and other nonsp ecific skin eruption Start: 11-22-2024 End: 11-22-2024 ambulatory JADA A FELTER Not Available Start: 11-22-2024 End: 11-22-2024 Bamboo flowsheet Jada A Felter [employer] PER[employer]MANCE COACH-DATAWAREHOUSE DEVELOPER Work Phone: [facility] Start: 11-22-2024 End: 11-22-2024 Bamboo flowsheet Jada A Felter [employer] PERFORMANCE COACH-DATAWAREHOUSE DEVELOPER Work Phone: [facility] Start: 11-01-2024 End: 11-01-2024 Office outpatient new 30 minutes Jada A Felter [employer] COACH[employer]DATAWAREHOUSE DEVELOPER Work Phone: [facility] Comment on above: Other atopic dermati tis; Rash and other nonspecific skin eruption Start: 11-01-2024 End: 11-01-2024 ambulatory JADA Aden FELTER Not Available Start: 11-01-2024 End: 11-01-2024 Bamboo flowsheet Jada Aden Felter [employer]CE COACH[employer]DATAWAREHOUSE DEVELOPER Work Phone: [facility] Start: 11-01-2024 End: 11-01-2024 Bamboo flowsheet Jada Aden Felter [employer]CE COACH[employer]DATAWAREHOUSE DEVELOPER Work Phone: [facility] Start: 10-06-2024 End: 10-06-2024 ambulatory DONNY Roman MCDONALD Not Available Start: 07-07-2024 End: 07-07-2024 ambulatory PAULA ARIZA Not Available Start: 07-07-2024 End: 07-07-2024 Office outpatient visit 25 minutes Jr. Paula Story DO Work Phone: [facility] Comment on above: Left wrist pain (Viola selvin Dx); Extensor carpi ulnaris tendinitis Start: 07-07-2024 End: 07-07-2024 Bamboo flowsheet Jr. Paula Story DO Work Phone: [facility] Start: 07-07-2024 End: 07-07-2024 Bamboo flowsheet Jr. Paula Story DO Work Phone: [facility] Start: 06-28-2024 End: 06-28-2024 ambulatory PAULA ARIZA Not Available Start: 06-09-2024 End: 06-09-2024 Office outpatient visit 25 minutes Jr. Paula Story DO Work Phone: [facility] Comment on above: Left wrist [...] encounter procedure Monique Álvaro DO Work Phone: [facility] Comment on above: Left carpal tunnel s yndrome (Primary Dx); Limb weakness; Numbness; Paresthesia; Pain in extremity, unspecified extremity Start: 05-26-2024 End: 05-26-2024 ambulatory MONIQUE ÁLVARO Not Available Start: 05-26-2024 End: 05-26-2024 Bamboo flowsheet Monique Álvaro DO Work Phone: [facility] Start: 05-26-2024 End: 05-26-2024 Bamboo flowsheet Moniquemagui Rea DO Work Phone: [facility] Start: 05-19-2024 End: 05-19-2024 Bamboo [...] End: 01-03-2024 Patient encounter procedure Dilshad Whitaker [facility] Start: 12-02-2022 End: 12-02-2022 ambulatory Gloria Fish Other [employer] Other Start: 12-02-2022 Office outpatient vi sit 15 minutes Gloria Fish [facility] Start: 06-07-2022 End: 06-08-[address] DONNY MCDONALD Facility:[facility] Start: 03-15-[address] DONNY MCDONALD Facil ity:[facility] Procedures Date Procedure Procedure Detail Performing Clinician Start: 11-22-2024 SKIN / NAIL BIOPSY Maia Up [employer]DATAWAREHOUSE DEVELOPER Work Phone: Start: 05-26-2024 End: 05-26-2024 Needle emg ea extremty w/paraspinl area complete Monique Rea DO Work Phone: Start: 06-07-[address] DONNY MCDONALD Comment on above: Performed By: #### P [facility] #### [facility] [address] [place] [address] Dr. Emilia Padilla Start: 04-28-2008 Colonoscopy Donny jacobsen MD Work Phone: Plan of Treatment Date Care Activity Detail Author Start: 01-04-2027 Screening for malignant neoplasm of colon [facility] Start: 10-31-2025 End: 10-31-2025 Patient encounter procedure 10/31/2025 3:05 PM EDT Office Visit [facility] [address] [place] [phone] Jada Up [employer] COACH[employer]DATAWAREHOUSE DEVELOPER [address] [place] [address] [facility] Start: 06-09-2025 End: 06-09-2025 Patient encounter procedure 06/09/2025 3:25 PM EST Office Visit [facility] [address] [place] [phone] Jada Up, [employer] COACH[employer]DATAWAREHOUSE DEVELOPER [address] [place] [address] [facility] Start: 04-06-2025 End: 04-06-2025 Patient encounter procedure 04/06/2025 4:00 PM EDT Office Visit [facility] [address] [place] [address] Donny Mcdonald MD [address] [place] [address] (Fax) [facility] Start: 03-21-2025 Influenza vaccination Influenza Vaccine (Season Ended) [facility] Start: 12-06-2024 End: 12-06-2024 Patient encounter procedure [facility] Comment on above: Arrived Start: 11-22-2024 End: 11-22-2024 Patient encounter procedure 11/22/2024 3:55 PM EDT Office Visit [facility] [address] [place] [phone] Jada Up, [employer] COACH[employer]DATAWAREHOUSE DEVELOPER [address] [place] [address] Arrived [facility] Comment on above: Arrived Start: 11-01-2024 End: 11-01-2024 Patient encounter procedure 11/01/2024 3:35 PM EDT Office Visit [facility] [address] [place] [phone] Jada Up, [employer] PER[employer]MANCE COACH-DATAWAREHOUSE DEVELOPER [address] [place] [address] Desquamated skin; Rash [facility] Comment [...] Hypertensive nephropathy (CMS/HCC) Expected: 09/14/2024, Expires: 04/14/2025 [facility] Comment on above: Expected: 09/14/2024, Expires: Start: 09-14-2024 End: 04-14-2025 Urate [Mass/volume] in Serum or Plasma Uric acid Lab Routine Hyperuricemia Expected: 09/14/2024, Expires: 04/14/2025 [facility] Comment on above: Expected: 09/14/2024, Expires: Start: 07-07-2024 End: 07-07-2024 Patient encounter procedure 07/07/2024 2:45 PM EST Office Visit [facility] [address] [place] [address] Jr. Paula Story, DO [address] [place] [address] [facility] Start: 06-09-2024 End: 06-09-2024 Patient encounter procedure [facility] Comment on above: Arrived Start: 06-09-2024 End: 06-09-2025 MR Wrist - left WO contrast MR wrist left wo IV contrast Imaging Routine Left wrist pain Bone spur of other site Tear of left scapholunate ligament, initial encounter Expected: 06/09/2024 (Approximate), Expires: 06/09/2025 [facility] Work Phone: Comment on above: Expected: 06/09/2024 (Approximate), Expi res: 06/09/2025 Start: 05-26-2024 End: 05-26-2024 Patient encounter procedure [facility] Comment on above: Arrived Start: 05-19-2024 End: 05-19-2025 EMG AND NERVE CONDUCTION STUDY EMG AND NERVE CONDUCTION STUDY Neurology Routine Limb weakness Numbness Paresthesia Pain in extremity, unspecified extremity Expected: 05/19/2024 (Approximate), Expires: 05/19/2025 [facility] Work Phone: Comment on above: Expected: 05/19/2024 (Approximate), Expi res: 05/19/2025 Start: 05-19-2024 End: 05-19-2024 Patient encounter procedure 05/19/2024 8:30 AM EDT Office Visit [facility] [address] [place] [phone] Jr. Paula Story, DO [address] [place] [address] Bone spur of other site [facility] Comment on above: Bone spur of other site Start: 05-12-2024 End: 05-12-2024 Patient encounter procedure 05/12/2024 3:15 PM EDT Office Visit [facility] [address] [place] [address] Donny Mcdonald MD [address] [place] [facility] [place] [address] (Fax) Arrived [facility] Comment on above: Arrived Start: 04-14-2024 End: 04-14-2024 Patient encounter procedure [facility] Comment on above: Benign essential hypertension (CMS/HCC); Hypertensive nephropathy (CMS/HCC); Microalbuminuria; Hyperuricemia; Non morbid obesity due to excess calories Start: 03-21-2024 Influenza vaccination Influenza Vaccine (#1) [facility] Start: 04-28-2018 Screening for malignant neoplasm of colon Colonoscopy [facility] Start: 1965 Screening for malignant neoplasm of colon [facility] Dermatopathology exam Dermatopat hology exam Pathology and Cytology Timed Rash and other nonspecific skin eruption Release Upon Ordering for 1 Occurrences starting 11/22/2024 [facility] Work Phone: Comment on above: Release Upon Ordering for 1 Occurrences starting 11/22/2024 Immunizations Immunization Date Immunization Notes Care Provider Wen magdaleno 08-15-2024 zoster vaccine recombinant Jada Up [employer] COACH-DATAWAREHOUSE DEVELOPER Work Phone: [facility] 10-06-2021 influenza virus vaccine, unspecified formulation Dilshad Whitaker [facility] 04-25-2021 influenza, seasonal, injectable Donny Mcdonald MD Work Phone: [facility] 04-13-2020 influenza virus vaccine, unspecified formulation Dilshad Whitaker [facility] 04-13-2020 influenza, injectabl e, quadrivalent, preservative free Donny Mcdonald MD Work Phone: [facility] 06-09-2018 influenza virus vaccine, unspecified formulation Dilshad Whitaker [facility] 06-09-2018 influenza, injectabl e, quadrivalent, preservative free Donny Mcdonald MD Work Phone: [facility] Payers Date Payer Category Payer Managed Care O (unspecified) [id number] 2023 Private Health Insurance [id number] 1966 Unknown [id number] 2.16.84 [id number] 1966 Unknown [id number] 2.16.84 [id number] 1966 Unknown [id number] 2.16.840.1.189499.3.579.2.727 1966 Unknown [id number] 2.16.840.1.961957.3.579.2.1259 1966 Unknown [id number] 2.16.840.1.129158.3.579.2.1259 1966 Unknown [id number] 2.16.840.1.416943.3.579.2.1259 1966 Unknown [id number] 2.16.840.1.201337.3.579.2.1259 1966 Unknown [id number] 2.16.840.1.264594.3.579.2.9 1966 Unknown [id number] 2.16.840.1.718999.3.579.2.1258 1966 Unknown [id number] 2.16.840.1.860884.3.579.2.9 1966 Unknown [id number] 2.16.840.1.649543.3.579.2.1258 1966 Unknown [id number] 2.16.840.1.340544.3.579.2.1258 1966 Unknown [id number] 2.16.840.1.346890.3.579.2.1258 1966 Unknown [id number] 2.16.840.1.233563.3.579.2.9 1966 Unknown [id number] 2.16.840.1.165913.3.579.2.1258 1959 Private Health Insurance [id number] 1958 Self-pay Social History Date Type Detail Facility Unknown if ever smoked [employer] Other Start: 03-20-2023 End: 09-29-2024 Sex Assigned At [facility] Start: 10-08-2023 End: 01-03-2024 Tobacco smoking status Never smoked tobacco (finding) [facility] Care Tobacco smoking status Never [facility] Start: 10-08-2023 Tobacco use and [...] to any clubs or organizations such as jewish groups, unions, fraternal or athletic groups, or [...] Assessment Result Facility 01-03-2024 Functional Status N/A [facility] Care Clinical Notes 12-02-2022 to 12-06-2024 JOSE Barboza - 12/06/2024 3:50 PM Jose Alberto Up [facility] - 11/22/2024 3:55 PM [facility] 11/01/2024 3:35 PM CASSIE Morin - [...] follow up rash documented in this encounter [facility] 11-22-2024 History of Presen t illness [...] OTHER NONSPECIFIC SKIN ERUPTION Right lower back [place] patches and plaques Lesion biopsy - Right [...] and follow up documented in this encounter [facility] 11-01-2024 History of Presen t illness [...] year, follow up documented in this encounter [facility] 07-07-2024 History of Presen t illness Narrative Images from the original note were not included. HISTORY OF PRESENT ILLNESS: EST PT Wander Flowers is an 59 y.o. @ male. (EST PT) RECHECK (L) WRIST ; HERE FOR MRI RESULTS 07/08/24 IN [facility] XRAYS 05/12/24 IN [facility] MRI 07/08/24 IN [facility] (L) UE EMG 05/26/24 @ JOSE [...] is normal. Strength additional comments: 5/5 EQUAL [employer] Neurovascular Left Left neurovascular exam is [...] requiring urgent evaluation. documented in this encounter [facility] 06-09-2024 History of Presen t illness [...] is normal. Strength additional comments: 5/5 [employer] Neurovascular Left Left neurovascular exam is [...] requiring urgent evaluation. documented in this encounter [facility] 05-26-2024 History of Presen t illness Narrative Images from the original note were not included. Reason for Appointment: EMG Patient: Wander Flowers : 1965 EMG Computer: [employer] Referring Physician: Dr. Paula Story EMG: CRISTINA chemical laboratory assistant: Tomasz Keller RT(R) Office Location: [place] Reason for EMG: c/o numbness/tingling in left hand, pain in left wrist. No hx of DM. Not on blood thinners. Comments: Procedure was explained to the patient who expressed understanding. Patient appeared to have tolerated the test well despite some discomfort due to the nature of the test. documented in this encounter [facility] 05-19-2024 History of Presen t illness [...] Medical History: Diagnosis Date Chest pain negative ND Essential hypertension, benign (CMS/HCC) Gout Pain in [...] positive Gorge's test: positive Doll's test: negative Loraien's test: negative Froment's sign: negative DRUJ instability: [...] supplier standards were given to the patient. [facility] patient agreement was completed at time of dispensement. The patient stated that the device was comfortable when fitted in the office. At the time of dispensement, the device was suitable and not substandard. Paula Story D.O. documented in this encounter [facility] 05-13-2024 Telephone encount er Note Patient was notified and verbalized understanding. He/She knows to contact office with any further questions. I sent the referral. He would like anti-inflammatory if you can send that in please and he is going to get the gel too while he is there [facility] 05-13-2024 Miscellaneous Notes Formattin g of [...] And other option would be to use yewm-qox-pafcmdh diclofenac gel a pea-sized amount rubbed into the area near the spur if he finds the last part of his forearm bone just below the thumb right at the edges where this spur is and if he were just aerobic good pea-sized amount into that area he should get it. documented in this encounter [facility] 05-13-2024 Telephone encount er Note Celine [...] And other option would be to use dkwn-kqj-oqevwxp diclofenac gel a pea-sized amount rubbed into the area near the spur if he finds the last part of his forearm bone just below the thumb right at the edges where this spur is and if he were just aerobic good pea-sized amount into that area he should get it. [facility] 05-12-2024 History of Presen t illness Narrative [...] icing this and putting it into an [id number] wrist splint temporarily. He does actively lift [...] views left; Future documented in this encounter [facility] 04-14-2024 History of Presen t illness [...] aerobic exercise program. documented in this encounter [facility] 04-06-2024 Telephone encount er Note Allopurinol sent [facility] 04-06-2024 Miscellaneous Notes Formattin g of this note might be different from the original. Allopurinol sent Lawrence called, we had to move his appointment and he is out of his gout medication and is having a flare. He is requesting a refill to [facility] in [place]. documented in this encounter [facility] 04-06-2024 Telephone encount er Note Lawrence called, we had to move his appointment and he is out of his gout medication and is having a flare. He is requesting a refill to [facility] in [place]. [facility] 12-02-2022 Evaluation note Encounter Date Diagnosis [...] no improvement in 2 to 3 days [employer] Other Evaluation + Plan note No data available for this section [facility] Evaluation note* Diagnosis Benign essential hypertension (CMS/HCC) Essential hypertension, benign Hypertensive nephropathy (CMS/HCC) Unspecified hypertensive kidney disease with chronic kidney disease stage I through stage IV, or unspecified Microalbuminuria Proteinuria Hyperuricemia Other abnormal blood chemistry Non morbid obesity due to excess calories documented in this encounter [facility] HealthcareEvaluation note* Diagnosis Bone spur of other site documented in this encounter [facility] HealthcareEvaluation note* Diagnosis Left wrist pain- Primary Pain in joint, forearm Left wrist pain Pain in joint, forearm documented in this encounter [facility] HealthcareEvaluation note* Diagnosis Limb weakness- Primary Other musculoskeletal symptoms referable to limbs Bone spur of other site Numbness Disturbance of skin sensation Paresthesia Disturbance of skin sensation Pain in extremity, unspecified extremity documented in this encounter [facility] HealthcareEvaluation note* Diagnosis Left carpal tunnel syndrome- Primary Carpal tunnel syndrome Limb weakness Other musculoskeletal symptoms referable to limbs Numbness Disturbance of skin sensation Paresthesia Disturbance of skin sensation Pain in extremity, unspecified extremity documented in this encounter [facility] HealthcareEvaluation note* Diagnosis Left wrist pain- Primary Pain in joint, forearm Bone spur of other site Tear of left scapholunate ligament, initial encounter documented in this encounter [facility] HealthcareEvaluation note* Diagnosis Hyperuricemia Other abnormal blood chemistry Benign essential hypertension (CMS/HCC) Essential hypertension, benign Hypertensive nephropathy (CMS/HCC) Unspecified hypertensive kidney disease with chronic kidney disease stage I through stage IV, or unspecified Microalbuminuria Proteinuria Hyperuricemia Other abnormal blood chemistry Non morbid obesity due to excess calories documented in this encounter [facility] HealthcareEvaluation note* Diagnosis Left wrist pain- Primary Pain in joint, forearm Extensor carpi ulnaris tendinitis documented in this encounter [facility] HealthcareEvaluation note* Diagnosis Other atopic dermatitis Rash and other nonspecific skin eruption documented in this encounter [facility] HealthcareEvaluation note* Diagnosis Rash and other nonspecific skin eruption documented in this encounter [facility] HealthcareEvaluation note* Diagnosis Rash and other nonspecific skin eruption documented in this encounter [facility] HealthcareEvaluation note* Diagnosis Hyperuricemia Other abnormal blood chemistry Benign essential hypertension Essential hypertension, benign documented in this encounter [facility] HealthcareHistory general Narrative - Reported* Type Description Date Medical History HTN Medical History gout Hospitalization History chest pain [employer] Other Hospital Discharge instructions No data available for this section [facility] Progress note No data available for this section [facility] Reason for visit Narrative* Other Medical (Routine) - Closed Specialty Diagnoses / Procedures Referred By Contac t Referred To Contact Neurology Diagnoses Limb weakness Numbness Paresthesia Pain in extremity, unspecified extremity Procedures EMG AND NERVE CONDUCTION STUDY Jr. Paula Story DO [address] [facility] [address] [place] [address] Phone: tel: fax: Dimitri Quispe MD [address] [place] [address] Phone: tel: fax: Referral ID Status Reason Start Date Expiration Date V isits Requested Visits Authorized [id number] Closed Perform Procedure 05/19/2024 11/15/2024 1 1 [facility] Healthcare Summary Purpose Family History No [...] AUTHOR AUTHOR'S ORGANIZ ATION 01/04/2024 Noble Octaviano [facility] DATE CREATED AUTHOR AUTHOR'S ORGANIZ ATION 12/07/2024 [facility] EPIC REASON FOR VISIT (unrecogniz ed section and content) Reason Onset Date Comments Results 05/13/2024 Reason Comments Wrist Pain Reason Comments Pain Specialty Diagnoses / Procedures Referred By Contact Referred To Contact Orthopaedic Surgery Diagnoses Bone spur of other site Donny Mcdonald MD [address] [facility] [address] [place] [address] Phone: tel: fax: Jr. Paula Story DO [address] [facility] [address] [place] [address] Phone: tel: fax: Referral ID Status Reason Start Date Expiration Date V isits Requested Visits Authorized [id number] Closed Specialty Services Required 05/13/2024 11/09/2024 1 1 Reason Comments Rash Skin Problem Specialty Diagnoses / Procedures Referred By Contac t Referred To Contact Dermatology Diagnoses Desquamated skin Rash Procedures MO OFFICE/OUTPATIENT NEW HIGH MDM 60 MINUTES Donny Mcdonald MD [address] [facility] [address] [place] [address] Phone: tel: fax: Freda Malhotra MD [address] [facility] [address] [place] [address] Phone: tel: fax: Referral ID Status Reason Start Date Expiration Date V isits Requested Visits Authorized [id number] Closed Consult and Treat 10/06/2024 04/04/2025 1 1 Reason Comments Med Refill Care Teams (unrecognized sec tion and content) [employer] Winder Relationship Specialty Start Date End Date Donny Mcdonald MD [address] [place] [address] (Fax) PCP - General Family Medicine 05/20/24 [employer] Winder Relationship Specialty Start Date End Date Donny Mcdonald MD (Fax) PCP - General Family Medicine 01/30/23 [employer]inder Relationship Specialty Start Date End Date Donny Mcdonald MD [address] [place] [address] PCP - General Family Medicine 01/30/23 FOR [...] BE BASED ON THE PRIMARY CLINICAL RECORDS. [employer] provides no warranty or guarantee of the accuracy or completeness of information in this document.
[2025-01-05 00:59] LABS: Glucometer 112 mg/dL (74-106)
[2025-01-05] MEDS: LACTATED RINGER'S SOLUTION 1,000 ML 300 ML IV ×3 (01:13→08:10)
[2025-01-05 01:40] LABS: Amphetamine Screen Urine NEGATIVE (NEGATIVE); Barbiturates Screen Urine NEGATIVE (NEGATIVE); Benzodiazepines Screen Urine NEGATIVE (NEGATIVE); Bilirubin Urine SMALL (NEGATIVE); Blood Urine NEGATIVE (NEGATIVE); Buprenorphine Screen Urine NEGATIVE (NEGATIVE); Cannabinoid Screen Urine NEGATIVE (NEGATIVE); Clarity Urine CLEAR (CLEAR); Cocaine Screen Urine NEGATIVE (NEGATIVE); Color Urine YELLOW (YELLOW); Glucose Urine UA NEGATIVE (NEGATIVE); Ketones Urine >=80 mg/dL (NEGATIVE); Leukocyte Esterase Urine NEGATIVE (NEGATIVE); Methadone Screen Urine NEGATIVE (NEGATIVE); Methamphetamines Screen Urine NEGATIVE (NEGATIVE); Nitrite Urine NEGATIVE (NEGATIVE); Opiate Screen Urine NEGATIVE (NEGATIVE); Oxycodone Screen Urine NEGATIVE (NEGATIVE); Phencyclidine Screen Urine NEGATIVE (NEGATIVE); Protein Urine NEGATIVE (NEG/TRACE); Specific Gravity Urine <=1.005 (1.005-1.025); Tricyclic Antidepressant Urine NEGATIVE (NEGATIVE); pH Urine 6.5 (5.0-9.0)
[2025-01-05 01:43] LABS: Urine Microscopic Indicated NO
[2025-01-05 05:13] LABS: Basophils Percent Auto 0.3 % (0.2-2.0); Eosinophils Percent Auto 0.3 % (0.9-7.0); Hematocrit 45.9 % (42.0-54.0); Hemoglobin 15.6 g/dL (14.0-18.0); Immature Granulocytes Abs Auto 0.03 10^3/uL (0.00-0.03); Immature Granulocytes Pct Auto 0.4 % (0.0-0.5); Lymphocytes Absolute Auto 0.8 10^3/uL (1.2-3.8); Lymphocytes Percent Auto 11.9 % (20.5-60.0); Mean Corpuscular Hemoglobin 29.8 pg (25.9-34.0); Mean Corpuscular Volume 87.6 fL (80.0-94.0); Mean Platelet Volume 10.5 fL (9.5-13.5); Monocytes Absolute Auto 0.5 10^3/uL (0.3-0.8); Monocytes Percent Auto 6.9 % (1.7-12.0); Neutrophils Absolute Auto 5.4 10^3/uL (1.4-6.5); Neutrophils Percent Auto 80.2 % (43.0-75.0); Platelet Count 150 10^3/uL (150-450); Red Blood Count 5.24 10^6/uL (4.70-6.10); Red Cell Distribution Width 13.8 % (11.0-15.0); White Blood Count 6.8 10^3/uL (4.0-11.0)
[2025-01-05] MEDS: FAMOTIDINE/PF 20 MG/2 ML VIAL IV (05:26)
[2025-01-05 06:12] LABS: Albumin Globulin Ratio 1.2; Albumin Level 3.6 g/dL (3.4-5.0); Alkaline Phosphatase 184 U/L (46-116); BUN Creatinine Ratio 13.1; Calcium 8.9 mg/dL (8.5-10.1); Chloride 103 mmol/L (98-107); Estimated GFR (African America >60 (>=60 mL/min/1.73m^2); Estimated GFR (Non-African Ame >60 (>=60 mL/min/1.73m^2); Glucose 108 mg/dL (74-106); Sodium 139 mmol/L (136-145); Total Protein 6.6 g/dL (6.4-8.2)
[2025-01-05 06:13] LABS: Alanine Aminotransferase 644 U/L (16-63); Aspartate Amino Transferase 515 U/L (15-37)
--- NOTE | 2025-01-05 06:21 | PC.NURSE ---
0615: Lab called with critical labs. AST 515, ALT 644. These are improved from last night. Will pass along to hospitalist,
--- NOTE | 2025-01-05 06:22 | PC.NURSE ---
0615: Lab called with critical labs. Pts AST is 515 and ALT is 644. These are improved from last night. Will pass along to hospitalist this morning.
--- OUTSIDE RECORDS SUMMARY | 2025-01-05 06:44 | XMS_ITS | CCD ---
Author Organization [facility] Care Team Providers Care Accounts Payable Analyst Name Role Phone TAMARA, DR ROSENBAUM [...] Provider Donny Mcdonald MD Primary Care Provider [phone] Donny Mcdonald MD Primary Care Provider Donny [...] reactions to drug Eruption of skin (disorder) [facility] (20 sources) Nirmatrelvir-Rit onavir Allergy to substance 3 Rash [facility] (20 sources) Indomethacin Drug Allergy 4 Rash [facility] Medications Current Medications Medication Drug [...] / neomycin 3.5 mg/ml / polymyxin b 27532 unt/ml otic suspension (1 source) Aminoglycoside Antibacterial, [...] 2 Specimen sent for: H&E Photo taken [facility] [employer] MR WRIST LEFT WO IV CONTRAST [...] NCS LUE Minimal left carpal tunnel [facility] 7-8 Nerveson 05-26-2024 EMG/ NCS LUE Minimal left carpal tunnel syndrome [facility] XR WRIST 1-2 VIEWS [...] Electronically Signed Brendan Calzada D.O. 2024-05-12 16:53:21 [facility] [employer] Radiology Study observation (narrative) [facility] [employer] XR Wrist - left 2 ViewsOrder ed By: Brendan Calzada on 05-12-2024 [facility] [employer] Work Phone: Ambulatory Visit Summaryon 0 [...] a day Duration: 7 Days Pickup at [facility]/pharmacy #[id number] Unchanged allopurinol (allopurinol 300 mg Tab) Unchanged metoprolol (Lopressor 25 mg oral tablet) Pharmacy Information [facility]/pharmacy #[id number]: [address], [place] [id number] [phone] Allergies Paxlovid (Rash) Patient Survey You may receive a survey via text or e-mail asking about your office visit. Please share your experience with us by completing your survey. We appreciate your feedback and thank you for choosing us for your care. Normal [facility] Medicine Office/Clini c Noteon [...] influenza virus vaccine, inactivated 06/09/[address] [facility] Comment on above: Result Comment: Elec tronically Signed By: Sherman SOTO, Dilshad Aden\.br\Date and Time Signed: 01/03/24 12:38 EDT LIPID PROFILEon 06-07-2022 CHOL-HDL RATIO NORM SEE BELOW Normal [facility] Comment on above: Result Comment: 3.3 - 4.4 LOW RISK 4.4 - 7.1 AVERAGE RISK 7.1 - 11.0 MODERATE RISK >11.0 HIGH RISK Performed By: #### C MP, URIC, LIPID #### [facility] [address] [address] [address] Emilia Padilla Cholesterol [Mass/Vol] 189 mg/dL Normal <=200 [facility] Comment on above: Performed By: #### C MP, URIC, LIPID #### [facility] [address] [address] [address] Emilia Padilla Cholesterol in HDL [Mass/Vol] 51 mg/dL Normal 40-60 [facility] Comment on above: Performed By: #### C MP, URIC, LIPID #### [facility] [address] [address] [address] Emilia Padilla Cholesterol in LDL [Mass/Vol] 120.2 mg/dL Normal [facility] Comment on above: Performed By: #### C MP, URIC, LIPID #### [facility] [address] [address] [address] Emilia Padilla Cholesterol.total/C holesterol in HDL [Mass ratio] 3.7 {ratio} Normal [facility] Comment on above: Performed By: #### C MP, URIC, LIPID #### [facility] [address] [address] [address] Emilia Padilla HDL NORMAL > or = 60 mg/dl - LO W CARDIOVASCULAR RISK <40 mg/dl - HIGH CARDIOVASCULAR RISK Normal [facility] Comment on above: Performed By: #### C MP, URIC, LIPID #### [facility] [address] [address] [address] Emilia Padilla LDL CALC NORMAL SEE BELOW Normal [facility] Comment on above: Result Comment: <100 mg/dl OPTIMAL 100 - 129 mg/dl NEAR OR ABOVE OPTIMAL 130 - 159 mg/dl BORDERLINE HIGH 160 - 189 mg/dl HIGH >190 mg/dl VERY HIGH Performed By: #### C MP, URIC, LIPID #### [facility] [address] [address] [address] Emilia Padilla Triglyceride [Mass/Vol] 89 mg/dL Normal <=150 [facility] Comment on above: Performed By: #### C MP, URIC, LIPID #### [facility] [address] [address] [address] Emilia Padilla VLDL CALC 17.8 mg/dL Normal [facility] Comment on above: Performed By: #### C MP, URIC, LIPID #### [facility] [address] [address] [address] Emilia Padilla PROF 14(COMP METB)on 022 Albumin [Mass/Vol] 4.0 g/dL Normal 3.4-5.0 [facility] Comment on above: Performed By: #### C MP, URIC, LIPID #### [facility] [address] [address] [address] Emilia Padilla Albumin/Globulin [Mass ratio] 1.2 {ratio} Normal [facility] Comment on above: Performed By: #### C MP, URIC, LIPID #### [facility] [address] [address] [address] Emilia Padilla ALP [Catalytic activity/Vol] 81 U/L Normal 46-116 [facility] Comment on above: Performed By: #### C MP, URIC, LIPID #### [facility] [address] [address] [address] Emilia Padilla ALT [Catalytic activity/Vol] 56 U/L Normal 16-63 [facility] Comment on above: Performed By: #### C MP, URIC, LIPID #### [facility] [address] [address] [address] Emilia Padilla Anion gap [Moles/Vol] 9.2 mmol/L Normal [facility] Comment on above: Performed By: #### C MP, URIC, LIPID #### [facility] [address] [address] [address] Emilia Padilla AST [Catalytic activity/Vol] 33 U/L Normal 15-37 [facility] Comment on above: Performed By: #### C MP, URIC, LIPID #### [facility] [address] [address] [address] Emilia Padilla Bilirubin [Mass/Vol] 1.0 mg/dL Normal 0.2-1.0 [facility] Comment on above: Performed By: #### C MP, URIC, LIPID #### [facility] [address] [address] [address] Emilia Padilla Calcium [Mass/Vol] 8.9 mg/dL Normal 8.5-10.1 [facility] Comment on above: Performed By: #### C MP, URIC, LIPID #### [facility] [address] [place] [address] Dr. Emilia Padilla Chloride [Moles/Vol] 103 mmol/L Normal 98-107 [facility] Comment on above: Performed By: #### C MP, URIC, LIPID #### [facility] [address] [place] [address] Dr. Emilia Padilla CO2 [Moles/Vol] 28.7 mmol/L Normal 21.0-32.0 [facility] Comment on above: Performed By: #### C MP, URIC, LIPID #### [facility] [address] [place] [address] Dr. Emilia Padilla Creatinine [Mass/Vol] 0.84 mg/dL Normal 0.70-1.30 [facility] Comment on above: Performed By: #### C MP, URIC, LIPID #### [facility] [address] [place] [address] Dr. Emilia Padilla EGFR-AF SWAZI >60 Normal >=60 [facility] Comment on above: Performed By: #### C MP, URIC, LIPID #### [facility] [address] [place] [address] Dr. Emilia Padilla EGFR-NON AF SWAZI >60 Normal >=60 [facility] Comment on above: Performed By: #### C MP, URIC, LIPID #### [facility] [address] [place] [address] Dr. Emilia Padilla Globulin (S) [Mass/Vol] 3.4 g/dL Normal [facility] Comment on above: Performed By: #### C MP, URIC, LIPID #### [facility] [address] [place] [address] Dr. Emilia Padilla Glucose [Mass/Vol] 104 mg/dL Normal 74-106 [facility] Comment on above: Performed By: #### C MP, URIC, LIPID #### [facility] [address] [place] [address] Dr. Emilia Padilla Potassium [Moles/Vol] 3.9 mmol/L Normal 3.5-5.1 [facility] Comment on above: Performed By: #### C MP, URIC, LIPID #### [facility] [address] [place] [address] Dr. Emilia Padilla Protein [Mass/Vol] 7.4 g/dL Normal 6.4-8.2 [facility] Comment on above: Performed By: #### C MP, URIC, LIPID #### [facility] [address] [place] [address] Dr. Emilia Padilla Sodium [Moles/Vol] 137 mmol/L Normal 136-145 [facility] Comment on above: Performed By: #### C MP, URIC, LIPID #### [facility] [address] [place] [address] Dr. Emilia Padilla Urea nitrogen [Mass/Vol] 11.0 mg/dL Normal 7.0-18.0 [facility] Comment on above: Performed By: #### C MP, URIC, LIPID #### [facility] [address] [place] [address] Dr. Emilia Padilla Urea nitrogen/Creatinine [Mass ratio] 13.1 mg/mg Normal [facility] Comment on above: Performed By: #### C MP, URIC, LIPID #### [facility] [address] [place] [address] Dr. Emilia Padilla URIC ACID SERUMon 06-07-2022 Urate [Mass/Vol] 5.2 mg/dL Normal 3.5-7.2 [facility] Comment on above: Performed By: #### C MP, URIC, LIPID #### [facility] [address] [place] [address] Dr. Emilia Padilla Vital Signs Date Time Vital Sign Value Performing Clinician Facility 05-19-2024 08:35-0400 Body height 182.9 cm Jr. Stepanic DO Work Phone: [facility] 05-19-2024 08:35-0400 Body mass index (BMI) [Ratio] 31.87 kg/m2 Jr. Stepanic DO Work Phone: [facility] 05-19-2024 08:35-0400 Body weight 106.59 kg Jr. Story DO Work Phone: [facility] 05-12-2024 15:08-0400 Body height 182.9 cm Donny Mcdonald MD Work Phone: [facility] 05-12-2024 15:08-0400 Body mass index (BMI) [Ratio] 33.09 kg/m2 Donny Mcdonald MD Work Phone: [facility] 05-12-2024 15:08-0400 Body weight 110.68 kg Donny Mcdonald MD Work Phone: [facility] 04-14-2024 15:45-0400 Body height 182.9 cm Donny Mcdonald MD Work Phone: [facility] 04-14-2024 15:45-0400 Body mass index (BMI) [Ratio] 33.09 kg/m2 Donny Mcdonald MD Work Phone: [facility] 04-14-2024 15:45-0400 Body weight 110.68 kg Donny Mcdonald MD Work Phone: [facility] 04-14-2024 15:45-0400 Diastolic blood pressure 78 mm[Hg] Donny Mcdonald MD Work Phone: [facility] 04-14-2024 15:45-0400 Heart rate 58 /min Donny Mcdonald MD Work Phone: [facility] 04-14-2024 15:45-0400 SaO2% (BldA) [Mass fraction] 97 % Donny Mcdonald MD Work Phone: [facility] 04-14-2024 15:45-0400 Systolic blood pressure 128 mm[Hg] Donny Mcdonald MD Work Phone: [facility] 01-03-2024 12:11-0400 Blood Pressure Location Dilshad Whitaker [facility] 01-03-2024 12:11-0400 Body temperature 97.52 [degF] Dilshad Whitaker [facility] 01-03-2024 12:11-0400 Diastolic blood pressure 84 mm[Hg] Dilshad Whitaker [facility] 01-03-2024 12:11-0400 Heart rate 67 /min Dilshad Whitaker [facility] 01-03-2024 12:11-0400 SaO2% (BldA) [Mass fraction] 97 % Dilshad Whitaker [facility] 01-03-2024 12:11-0400 Systolic blood pressure 132 mm[Hg] Dilshad Whitaker [facility] 12-02-2022 15:40-0400 Body height 182.88 cm Gloria Fish Other [employer] Other 12-02-2022 15:40-0400 Body mass index (BMI) [Ratio] 34.23 kg/m2 Gloria Fish Other [employer] Other 12-02-2022 15:40-0400 Body temperature 97.4 [degF] Gloria Fish Other [employer] Other 12-02-2022 15:40-0400 Body weight 114.49 kg Gloria Fish Other [employer] Other 12-02-2022 15:40-0400 Diastolic blood pressure 96 mm[Hg] Gloria Fish Other [employer] Other 12-02-2022 15:40-0400 Respiratory rate 18 /min Gloria Fish Other [employer] Other 12-02-2022 15:40-0400 SaO2% (BldA) [Mass fraction] 99 % Gloria Fish Other [employer] Other 12-02-2022 15:40-0400 Systolic blood pressure 160 mm[Hg] Gloria Fish Other [employer] Other Encounters Encounter Date Encounter Type Care Provider Facility Start: 01-04-2025 End: 01-04-2025 Nicole Mcdonald MD Work Phone: [facility] Comment on above: Hyperuricemia; Benign essential hypertension Start: 12-06-2024 End: 12-06-2024 Office outpatient visit 15 minutes Jada A Felter COLLECTION CARD CLERK-VICE PRESIDENT PAYMENT Work Phone: [facility] Comment on above: Rash and other nonsp ecific skin eruption Start: 12-06-2024 End: 12-06-2024 ambulatory JADA A FELTER Not Available Start: 12-06-2024 End: 12-06-2024 Bamboo flowsheet Jada A Felter COLLECTION CARD CLERK-VICE PRESIDENT PAYMENT Work Phone: [facility] Start: 12-06-2024 End: 12-06-2024 Bamboo flowsheet Jada A Felter COLLECTION CARD CLERK-VICE PRESIDENT PAYMENT Work Phone: [facility] Start: 11-22-2024 End: 11-22-2024 Patient encounter procedure Jada A Felter COLLECTION CARD CLERK-VICE PRESIDENT PAYMENT Work Phone: [facility] Comment on above: Rash and other nonsp ecific skin eruption Start: 11-22-2024 End: 11-22-2024 ambulatory JADA A FELTER Not Available Start: 11-22-2024 End: 11-22-2024 Bamboo flowsheet Jada A Felter COLLECTION CARD CLERK-VICE PRESIDENT PAYMENT Work Phone: [facility] Start: 11-22-2024 End: 11-22-2024 Bamboo flowsheet Jada A Felter COLLECTION CARD CLERK-VICE PRESIDENT PAYMENT Work Phone: [facility] Start: 11-01-2024 End: 11-01-2024 Office outpatient new 30 minutes Jada A Felter COLLECTION CARD CLERK-VICE PRESIDENT PAYMENT Work Phone: [facility] Comment on above: Other atopic dermati tis; Rash and other nonspecific skin eruption Start: 11-01-2024 End: 11-01-2024 ambulatory JADA Aden FELTER Not Available Start: 11-01-2024 End: 11-01-2024 Bamboo flowsheet Jada Aden Felter COLLECTION CARD CLERK-VICE PRESIDENT PAYMENT Work Phone: [facility] Start: 11-01-2024 End: 11-01-2024 Bamboo flowsheet Jada Aden Felter COLLECTION CARD CLERK-VICE PRESIDENT PAYMENT Work Phone: [facility] Start: 10-06-2024 End: 10-06-2024 ambulatory DONNY Roman MCDONALD Not Available Start: 07-07-2024 End: 07-07-2024 ambulatory PAULA ARIZA Not Available Start: 07-07-2024 End: 07-07-2024 Office outpatient visit 25 minutes Jr. Paula Story DO Work Phone: [facility] Comment on above: Left wrist pain (Viola selvin Dx); Extensor carpi ulnaris tendinitis Start: 07-07-2024 End: 07-07-2024 Bamboo flowsheet Jr. Paula Story DO Work Phone: [facility] Start: 07-07-2024 End: 07-07-2024 Bamboo flowsheet Jr. Paula Story DO Work Phone: [facility] Start: 06-28-2024 End: 06-28-2024 ambulatory PAULA ARIZA Not Available Start: 06-09-2024 End: 06-09-2024 Office outpatient visit 25 minutes Jr. Paula Story DO Work Phone: [facility] Comment on above: Left [...] encounter procedure Monique Álvaro DO Work Phone: [facility] Comment on above: Left carpal tunnel s yndrome (Primary Dx); Limb weakness; Numbness; Paresthesia; Pain in extremity, unspecified extremity Start: 05-26-2024 End: 05-26-2024 ambulatory MONIQUE ÁLVARO Not Available Start: 05-26-2024 End: 05-26-2024 Bamboo flowsheet Monique Álvaro DO Work Phone: [facility] Start: 05-26-2024 End: 05-26-2024 Bamboo flowsheet Moniquemagui Rea DO Work Phone: [facility] Start: 05-19-2024 End: 05-19-2024 Bamboo [...] End: 01-03-2024 Patient encounter procedure Dilshad Whitaker [facility] Start: 12-02-2022 End: 12-02-2022 ambulatory Gloria Fish Other [employer] Other Start: 12-02-2022 Office outpatient vi sit 15 minutes Gloria Fish [facility] Start: 06-07-2022 End: 06-08-[address] DONNY MCDONALD Facility:[facility] Start: 03-15-[address] DONNY MCDONALD Facil ity:[facility] Procedures Date Procedure Procedure Detail Performing Clinician Start: 11-22-2024 SKIN / NAIL BIOPSY Maia Up COLLECTION CARD CLERK-VICE PRESIDENT PAYMENT Work Phone: Start: 05-26-2024 End: 05-26-2024 Needle emg ea extremty w/paraspinl area complete Monique Rea DO Work Phone: Start: 06-07-[address] DONNY MCDONALD Comment on above: Performed By: #### [facility] #### [facility] [address] [place] [address] Dr. Emilia Padilla Start: 04-28-2008 Colonoscopy Donny jacobsen MD Work Phone: Plan of Treatment Date Care Activity Detail Author Start: 01-04-2027 Screening for malignant neoplasm of colon [facility] Start: 10-31-2025 End: 10-31-2025 Patient encounter procedure 10/31/2025 3:05 PM EDT Office Visit [facility] [address] [place] [phone] Jada Up COLLECTION CARD CLERK-VICE PRESIDENT PAYMENT [address] [place] [address] [facility] Start: 06-09-2025 End: 06-09-2025 Patient encounter procedure 06/09/2025 3:25 PM EST Office Visit [facility] [address] [place] [phone] Jada Up, COLLECTION CARD CLERK-VICE PRESIDENT PAYMENT [address] [place] [address] [facility] Start: 04-06-2025 End: 04-06-2025 Patient encounter procedure 04/06/2025 4:00 PM EDT Office Visit [facility] [address] [place] [address] Donny Mcdonald MD [address] [place] [address] (Fax) [facility] Start: 03-21-2025 Influenza vaccination Influenza Vaccine (Season Ended) [facility] Start: 12-06-2024 End: 12-06-2024 Patient encounter procedure [facility] Comment on above: Arrived Start: 11-22-2024 End: 11-22-2024 Patient encounter procedure 11/22/2024 3:55 PM EDT Office Visit [facility] [address] [place] [phone] Jada Up, COLLECTION CARD CLERK-VICE PRESIDENT PAYMENT [address] [place] [address] Arrived [facility] Comment on above: Arrived Start: 11-01-2024 End: 11-01-2024 Patient encounter procedure 11/01/2024 3:35 PM EDT Office Visit [facility] [address] [place] [phone] Jada Up, COLLECTION CARD CLERK-VICE PRESIDENT PAYMENT [address] [place] [address] Desquamated skin; Rash [facility] Comment [...] Hypertensive nephropathy (CMS/HCC) Expected: 09/14/2024, Expires: 04/14/2025 [facility] Comment on above: Expected: 09/14/2024, Expires: Start: 09-14-2024 End: 04-14-2025 Urate [Mass/volume] in Serum or Plasma Uric acid Lab Routine Hyperuricemia Expected: 09/14/2024, Expires: 04/14/2025 [facility] Comment on above: Expected: 09/14/2024, Expires: Start: 07-07-2024 End: 07-07-2024 Patient encounter procedure 07/07/2024 2:45 PM EST Office Visit [facility] [address] [place] [address] Jr. Paula Story, DO [address] [place] [address] [facility] Start: 06-09-2024 End: 06-09-2024 Patient encounter procedure [facility] Comment on above: Arrived Start: 06-09-2024 End: 06-09-2025 MR Wrist - left WO contrast MR wrist left wo IV contrast Imaging Routine Left wrist pain Bone spur of other site Tear of left scapholunate ligament, initial encounter Expected: 06/09/2024 (Approximate), Expires: 06/09/2025 [facility] Work Phone: Comment on above: Expected: 06/09/2024 (Approximate), Expi res: 06/09/2025 Start: 05-26-2024 End: 05-26-2024 Patient encounter procedure [facility] Comment on above: Arrived Start: 05-19-2024 End: 05-19-2025 EMG AND NERVE CONDUCTION STUDY EMG AND NERVE CONDUCTION STUDY Neurology Routine Limb weakness Numbness Paresthesia Pain in extremity, unspecified extremity Expected: 05/19/2024 (Approximate), Expires: 05/19/2025 [facility] Work Phone: Comment on above: Expected: 05/19/2024 (Approximate), Expi res: 05/19/2025 Start: 05-19-2024 End: 05-19-2024 Patient encounter procedure 05/19/2024 8:30 AM EDT Office Visit [facility] [address] [place] [phone] Jr. Paula Story, DO [address] [place] [address] Bone spur of other site [facility] Comment on above: Bone spur of other site Start: 05-12-2024 End: 05-12-2024 Patient encounter procedure 05/12/2024 3:15 PM EDT Office Visit [facility] [address] [place] [address] Donny Mcdonald MD [address] [place] [address] (Fax) Arrived [facility] Comment on above: Arrived Start: 04-14-2024 End: 04-14-2024 Patient encounter procedure [facility] Comment on above: Benign essential hypertension (CMS/HCC); Hypertensive nephropathy (CMS/HCC); Microalbuminuria; Hyperuricemia; Non morbid obesity due to excess calories Start: 03-21-2024 Influenza vaccination Influenza Vaccine (#1) [facility] Start: 04-28-2018 Screening for malignant neoplasm of colon Colonoscopy [facility] Start: 1965 Screening for malignant neoplasm of colon [facility] Dermatopathology exam Dermatopat hology exam Pathology and Cytology Timed Rash and other nonspecific skin eruption Release Upon Ordering for 1 Occurrences starting 11/22/2024 [facility] Work Phone: Comment on above: Release Upon Ordering for 1 Occurrences starting 11/22/2024 Immunizations Immunization Date Immunization Notes Care Provider Wen magdaleno 08-15-2024 zoster vaccine recombinant Jada Up COLLECTION CARD CLERK-VICE PRESIDENT PAYMENT Work Phone: [facility] 10-06-2021 influenza virus vaccine, unspecified formulation Dilshad Whitaker [facility] 04-25-2021 influenza, seasonal, injectable Donny Mcdonald MD Work Phone: [facility] 04-13-2020 influenza virus vaccine, unspecified formulation Dilshad Whitaker [facility] 04-13-2020 influenza, injectabl e, quadrivalent, preservative free Donny Mcdonald MD Work Phone: [facility] 06-09-2018 influenza virus vaccine, unspecified formulation Dilshad Whitaker [facility] 06-09-2018 influenza, injectabl e, quadrivalent, preservative free Donny Mcdonald MD Work Phone: [facility] Payers Date Payer Category Payer Managed Care O (unspecified) [id number] 2023 Private Health Insurance [id number] 1966 Unknown [id number] [id number] [id number] 1966 Unknown [id number] 2.16.84 [id number] 1966 Unknown [id number] 1966 Unknown [id number] 1966 Unknown [id number] 1966 Unknown [id number] 1966 Unknown [id number] 1966 Unknown [id number] 1966 Unknown [id number] 1966 Unknown [id number] 1965 Unknown [id number] 1965 Unknown [id number] 1966 Unknown [id number] 1966 Unknown [id number] 1966 Unknown [id number] 1958 Private Health Insurance [id number] 1958 Self-pay Social History Date Type Detail Facility Unknown if ever smoked [facility] Other Start: 03-20-2023 End: 09-29-2024 Sex Assigned At [facility] Start: 10-08-2023 End: 01-03-2024 Tobacco smoking status Never smoked tobacco (finding) [facility] Tobacco smoking status Never [facility] Start: 10-08-2023 Tobacco use and [...] to any clubs or organizations such as spiritism groups, unions, fraternal or athletic groups, or [...] Facility 01-03-2024 Functional Status N/A [facility] Clinical Notes 12-02-2022 to 12-06-2024 JOSE Barboza - 12/06/2024 3:50 PM Jose Alberto Up [facility] - 11/22/2024 3:55 PM [facility] 11/01/2024 3:35 PM CASSIE Morin [...] follow up rash documented in this encounter [facility] 11-22-2024 History of Presen t illness [...] OTHER NONSPECIFIC SKIN ERUPTION Right lower back [place] patches and plaques Lesion biopsy - Right [...] and follow up documented in this encounter [facility] 11-01-2024 History of Presen t illness [...] year, follow up documented in this encounter [facility] 07-07-2024 History of Presen t illness Narrative Images from the original note were not included. HISTORY OF PRESENT ILLNESS: EST PT Wander Flowers is an 59 y.o. @ male. (EST PT) RECHECK (L) WRIST ; HERE FOR MRI RESULTS 07/08/24 IN [facility] XRAYS 05/12/24 IN [facility] MRI 07/08/24 IN [facility] (L) UE EMG 05/26/24 @ JOSE [...] is normal. 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 documented in this encounter [facility] 06-09-2024 History of Presen t illness [...] is normal. 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 documented in this encounter [facility] 05-26-2024 History of Presen t illness Narrative Images from the original note were not included. Reason for Appointment: EMG Patient: Wander Flowers : 1965 EMG Computer: WiN MS Referring Physician: Dr. Paula Story EMG: CRISTINA lettuce trimmer: Tomasz Keller RT(R) Office Location: [place] Reason for EMG: c/o numbness/tingling in left hand, pain in left wrist. No hx of DM. Not on blood thinners. Comments: Procedure was explained to the patient who expressed understanding. Patient appeared to have tolerated the test well despite some discomfort due to the nature of the test. documented in this encounter [facility] 05-19-2024 History of Presen t illness [...] Medical History: Diagnosis Date Chest pain negative [place] Essential hypertension, benign (CMS/HCC) Gout Pain in [...] supplier standards were given to the patient. [facility] patient agreement was completed at time of dispensement. The patient stated that the device was comfortable when fitted in the office. At the time of dispensement, the device was suitable and not substandard. Paula Story D.O. documented in this encounter [facility] 05-13-2024 Telephone encount er Note Patient was notified and verbalized understanding. He/She knows to contact office with any further questions. I sent the referral. He would like anti-inflammatory if you can send that in please and he is going to get the gel too while he is there [facility] 05-13-2024 Miscellaneous Notes Formattin g of [...] And other option would be to use begm-dpr-uxphbyz diclofenac gel a pea-sized amount rubbed into the area near the spur if he finds the last part of his forearm bone just below the thumb right at the edges where this spur is and if he were just aerobic good pea-sized amount into that area he should get it. documented in this encounter [facility] 05-13-2024 Telephone encount er Note Celine [...] And other option would be to use fssh-vbf-eloxxfz diclofenac gel a pea-sized amount rubbed into the area near the spur if he finds the last part of his forearm bone just below the thumb right at the edges where this spur is and if he were just aerobic good pea-sized amount into that area he should get it. [facility] 05-12-2024 History of Presen t [...] icing this and putting it into an vsyg-ata-ddrpujd wrist splint temporarily. He does actively lift [...] views left; Future documented in this encounter [facility] 04-14-2024 History of Presen t illness [...] aerobic exercise program. documented in this encounter [facility] 04-06-2024 Telephone encount er Note Allopurinol sent [facility] 04-06-2024 Miscellaneous Notes Formattin g of this note might be different from the original. Allopurinol sent Lawrence called, we had to move his appointment and he is out of his gout medication and is having a flare. He is requesting a refill to [facility] in [place]. documented in this encounter [facility] 04-06-2024 Telephone encount er Note Lawrence called, we had to move his appointment and he is out of his gout medication and is having a flare. He is requesting a refill to [facility] in [place]. [facility] 12-02-2022 Evaluation note Encounter Date Diagnosis [...] no improvement in 2 to 3 days [facility] Other Evaluation + Plan note No data available for this section [facility] Evaluation note* Diagnosis Benign essential hypertension (CMS/HCC) Essential hypertension, benign Hypertensive nephropathy (CMS/HCC) Unspecified hypertensive kidney disease with chronic kidney disease stage I through stage IV, or unspecified Microalbuminuria Proteinuria Hyperuricemia Other abnormal blood chemistry Non morbid obesity due to excess calories documented in this encounter [facility]* Diagnosis Bone spur of other site documented in this encounter [facility]* Diagnosis Left wrist pain- Primary Pain in joint, forearm Left wrist pain Pain in joint, forearm documented in this encounter [facility]* Diagnosis Limb weakness- Primary Other musculoskeletal symptoms referable to limbs Bone spur of other site Numbness Disturbance of skin sensation Paresthesia Disturbance of skin sensation Pain in extremity, unspecified extremity documented in this encounter [facility]* Diagnosis Left carpal tunnel syndrome- Primary Carpal tunnel syndrome Limb weakness Other musculoskeletal symptoms referable to limbs Numbness Disturbance of skin sensation Paresthesia Disturbance of skin sensation Pain in extremity, unspecified extremity documented in this encounter [facility]* Diagnosis Left wrist pain- Primary Pain in joint, forearm Bone spur of other site Tear of left scapholunate ligament, initial encounter documented in this encounter [facility]* Diagnosis Hyperuricemia Other abnormal blood chemistry Benign essential hypertension (CMS/HCC) Essential hypertension, benign Hypertensive nephropathy (CMS/HCC) Unspecified hypertensive kidney disease with chronic kidney disease stage I through stage IV, or unspecified Microalbuminuria Proteinuria Hyperuricemia Other abnormal blood chemistry Non morbid obesity due to excess calories documented in this encounter [facility]* Diagnosis Left wrist pain- Primary Pain in joint, forearm Extensor carpi ulnaris tendinitis documented in this encounter [facility]* Diagnosis Other atopic dermatitis Rash and other nonspecific skin eruption documented in this encounter [facility]* Diagnosis Rash and other nonspecific skin eruption documented in this encounter [facility]* Diagnosis Rash and other nonspecific skin eruption documented in this encounter [facility]* Diagnosis Hyperuricemia Other abnormal blood chemistry Benign essential hypertension Essential hypertension, benign documented in this encounter [facility] Healthcare[facility] general Narrative - Reported* Type Description Date Medical History HTN Medical History gout Hospitalization History chest pain [facility] Other Hospital Discharge instructions No data available for this section [facility] Progress note No data available for this section [facility] Reason for visit Narrative* Other Medical (Routine) - Closed Specialty Diagnoses / Procedures Referred By Contac t Referred To Contact Neurology Diagnoses Limb weakness Numbness Paresthesia Pain in extremity, unspecified extremity Procedures EMG AND NERVE CONDUCTION STUDY Jr. Paula Story DO [address] [facility] [address] [place] [address] Phone: tel: fax: Dimitri Quispe MD [address] [place] [address] Phone: tel: fax: Referral ID Status Reason Start Date Expiration Date V isits Requested Visits Authorized [id number] Closed Perform Procedure 05/19/2024 11/15/2024 1 1 [facility] Summary Purpose Family History No [...] AUTHOR AUTHOR'S ORGANIZ ATION 01/04/2024 Noble Octaviano [facility] DATE CREATED AUTHOR AUTHOR'S ORGANIZ ATION 12/07/2024 [facility] d[facility] Specialists EPIC REASON FOR VISIT (unrecogniz ed section and content) Reason Onset Date Comments Results 05/13/2024 Reason Comments Wrist Pain Reason Comments Pain Specialty Diagnoses / Procedures Referred By Contact Referred To Contact Orthopaedic Surgery Diagnoses Bone spur of other site Donny Mcdonald MD [address] [facility] [address] [place] [address] Phone: tel: fax: Jr. Paula Story DO [address] [facility] [address] [place] [address] Phone: tel: fax: Referral ID Status Reason Start Date Expiration Date V isits Requested Visits Authorized [id number] Closed Specialty Services Required 05/13/2024 11/09/2024 1 1 Reason Comments Rash Skin Problem Specialty Diagnoses / Procedures Referred By Contac t Referred To Contact Dermatology Diagnoses Desquamated skin Rash Procedures IN OFFICE/OUTPATIENT NEW HIGH MDM 60 MINUTES Donny Mcdonald MD [address] [facility] [address] [place] [address] Phone: tel: fax: Freda Malhotra MD [address] [facility] [address] [place] [address] Phone: tel: fax: Referral ID Status Reason Start Date Expiration Date V isits Requested Visits Authorized [id number] Closed Consult and Treat 10/06/2024 04/04/2025 1 1 Reason Comments Med Refill Care Teams (unrecognized sec tion and content) Accounts Payable Analyst Relationship Specialty Start Date End Date Donny Mcdonald MD [address] [place] [address] (Fax) PCP - General Family Medicine 05/20/24 Accounts Payable Analyst Relationship Specialty Start Date End Date Donny Mcdonald MD (Fax) PCP - General Family Medicine 01/30/23 Accounts Payable Analyst Relationship Specialty Start Date End Date Donny Mcdonald MD [address] [place] [address] PCP - General Family Medicine 01/30/23 FOR [...] BE BASED ON THE PRIMARY CLINICAL RECORDS. [employer] provides no warranty or guarantee of the accuracy or completeness of information in this document.
--- OUTSIDE RECORDS SUMMARY | 2025-01-05 06:45 | XMS_ITS | Clinical Summary ---
Author Organization [facility] Address [address] [place] [address] Care Team Providers Care Frame Sample And Pattern Supervisor Name Role Phone Donny Sr MD Primary Care Provider [phone] Allergies Active Allergy Reactions Criticality Noted Date Comments Indomethacin Rash Low 05/19/2024 Nirmatrelvir-Ritonavir Rash Low 07/10/2023 Medications colchicine 0.6 MG tabletIndication s:Hyperuricemia Take 1 tablet at first sign of gout., then take 1 tablet every hour until improvement or total of 6 tablets. 6 tablet 1 4 Active metoprolol tartrate (Lopressor) 25 MG tabletIndication s:Benign essential hypertension Take 1 tablet (25 mg) by mouth in the morning and 1 tablet (25 mg) before bedtime. 180 tablet 1 5 04/04/20 25 Active allopurinol (Zyloprim) 300 MG tabletIndication s:Hyperuricemia Take 1 tablet (300 mg) by mouth Daily 90 tablet 1 5 04/04/20 25 Active triamcinolone (Kenalog) 0.1 % creamIndications :Other atopic dermatitis Apply topically 2 (two) times a day as needed for rash 454 g 3 5 Active Active Problems Problem Noted Date Diagnosed Date Non morbid obesity due to excess calories 2023 Benign essential hypertension 03/27/2023 Hypertensive nephropathy 03/27/2023 Hyperuricemia 03/27/2023 Microalbuminuria 03/27/2023 Venous insufficiency 03/27/2023 White coat syndrome with hypertension 03/27/2023 Resolved Problems Problem Noted Date Diagnosed Date Resolved Date Dermatofibroma of left forearm 03/27/2023 03/30/2024 Morbid obesity due to excess calories 03/27/2023 03/30/2024 Encounters Date Type Department Care Team Description 01/04/2025 Telephone [facility] [address] [facility] [address] [place] [id number] Rosalba Khan RN Appointment Request 01/04/2025 Refill [facility] [address] [facility] [address] [place] [id number] Donny Sr MD Hyperuricemia; Benign essential hypertension 12/06/2024 3:50 PM EDT Office Visit [facility] [address] [place] [address] 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, 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 Rash and other nonspecific skin eruption 12/06/2024 Bamboo flowsheet [facility] [address] [place] [address] Jada Up, 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 12/06/2024 Travel 11/29/2024 Telephone [facility] [address] [place] [address] Morena Fish LPN Results 11/29/2024 Results Follow-Up [facility] [address] [place] [address] Jada Up, 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 11/22/2024 3:55 PM EDT Office Visit [facility] [address] [place] [address] Jada Up, 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 Rash and other nonspecific skin eruption 11/22/2024 Bamboo flowsheet [facility] [address] [place] [address] Jada Up, 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 11/22/2024 Travel 11/01/2024 3:35 PM EDT Office Visit [facility] [address] [place] [address] Jada Up APRN-CNP Other atopic dermatitis; Rash and other nonspecific skin eruption 11/01/2024 Bamboo flowsheet [facility] [address] [place] [address] Jada Up APRN-CNP 11/01/2024 Travel 10/06/2024 4:00 PM EDT Office Visit [facility] [address] [facility] [address] [place] [address] Donny Sr MD Benign essential hypertension (Primary Dx); Hypertensive nephropathy ; Microalbuminuria; Hyperuricemia; Non morbid obesity due to excess calories; Desquamated skin; Rash 10/06/2024 Bamboo flowsheet [facility] [address] [facility] [address] [place] [address] Donny Sr MD 10/06/2024 Travel from Last 3 Months Immunizations Immunization Administration Dates Next Due Influenza, injectable, quadrivalent, preservativ e free 04/13/2020,06/09/2018 Influenza, seasonal, injectable 04/25/2021 Zoster, Recombinant 08/15/2024 Family History Medical History Relation Name Comments Heart disease Father Wally Diabetes Mother Treva Heart disease Mother Treva Melanoma Neg Hx Relation Name Status Comments Brother 1 x2 Brother 2 Daughter Alive x2 Father Wally Mother Treva Sister x3 Son Alive Social History Tobacco Use Types Packs/Day Years Used Date Smoking Tobacco: Never Smokeless Tobacco: Former Snuff Quit: 10/20/2011 Tobacco Cessation:Counseling Given: Yes Alcohol Use Standard Drinks/Week Comments Yes 12 (1 standard drink = 0.6 oz pu re alcohol) B1300 Health Literacy Answer Date Recor ded How often do you need to hav e someone help you when you read instructions, pamphlets, or other written material from your doctor or pharmacy? Never 09/29/2024 Humiliation, Afraid, Rape, and Kick questionnair e Answer Date Recorded Within the last year, have y ou been afraid of your partner or ex-partner? No 03/20/2023 Within the last year, have y ou been humiliated or emotionally abused in other ways by your partner or ex-partner? No Within the last year, have y ou been kicked, hit, slapped, or otherwise physically hurt by your partner or ex-partner? No 03/20/2023 Within the last year, have y ou been raped or forced to have any kind of sexual activity by your partner or ex-partner? No 03/20/2023 Social Connection and Isolation Panel [NHANES] A nswer Date Recorded In a typical week, how many times do you talk on the phone with family, friends, or neighbors? Three times a week 09/30/19 How often do you get togethe r with friends or relatives? Once a week 09/29/2024 How often do you attend chur ch or oriental orthodox services? Never 09/29/2024 Do you belong to any clubs o r organizations such as yarsani groups, unions, fraternal or athletic groups, or school groups? Yes 09/29/2024 How often do you attend meet ings of the clubs or organizations you belong to? 1 to 4 times per year 09/29/2024 Are you , , di vorced, , never , or living with a partner? 09/29/2024 AUDIT-C Answer Date Recorded Q1: How often do you have a drink containing alc ohol? 2-3 times a week 09/29/2024 Q2: How many drinks containi ng alcohol do you have on a typical day when you are drinking? 5 or 6 09/29/2024 Q3: How often do you have si x or more drinks on one occasion? Monthly 09/29/2024 Overall Financial Resource Strain (CARDIA) Answe r Date Recorded How hard is it for you to pa y for the very basics like food, housing, medical care, and heating? Not hard at all 09/29/2024 [facility] of Occupat ional Health - Occupational Stress Questionnaire Answer Date Recorded Do you feel stress - tense, restless, nervous, or anxious, or unable to sleep at night because your mind is troubled all the time - these days? Only a little 09/29/2024 Exercise Vital Sign Answer Date Recorde d On average, how many days pe r week do you engage in moderate to strenuous exercise (like a brisk walk)? 5 days 09/29/2024 On average, how many minutes do you engage in exercise at this level? 40 min 09/29/2024 Hunger Vital Sign Answer Date Recorded Within the past 12 months, y ou worried that your food would run out before you got the money to buy more. Never true 09/30/19 25 Within the past 12 months, t he food you bought just didn't last and you didn't have money to get more. Never true 09/29/2024 PRAPARE - Transportation Answer Date Re corded In the past 12 months, has l ack of transportation kept you from medical appointments or from getting medications? No 09/18 In the past 12 months, has l ack of transportation kept you from meetings, work, or from getting things needed for daily living? No 09/29/2024 Housing Stability Vital Sign Answer Jong e Recorded In the last 12 months, was t here a time when you were not able to pay the mortgage or rent on time? No 03/20/2023 In the last 12 months, how many places have you lived? 1 03/20/2023 In the last 12 months, was t here a time when you did not have a steady place to sleep or slept in a residential (including now)? No 03/20/2023 Housing Stability Vital Sign Answer Jong e Recorded In the last 12 months, was t here a time when you were not able to pay the mortgage or rent on time? No 09/29/2024 Number of Times Moved in the Last Year Not on fi le 09/29/2024 At any time in the past 12 m [facility], were you homeless or living in a residential (including now)? No 09/29/2024 Sex and Gender Information Value Date Recorded Sex Assigned at Not on file Legal Sex Male 7:03 PM EDT Gender Identity Not on file Sexual Orientation Not on file Last Filed Vital Signs Vital Sign Reading Time Taken Comments Blood Pressure 124/78 10/06/2024 3:48 PM EDT Pulse 57 10/06/2024 3:48 PM EDT Temperature - - Respiratory Rate - - Oxygen Saturation 98% 10/06/2024 3:48 PM EDT Inhaled Oxygen Concentration - - Weight 107 kg (235 lb) 10/06/2024 3:48 PM EDT Height 182.9 cm (6') 10/06/2024 3:48 PM EDT Body Mass Index 31.87 10/06/2024 3:48 PM EDT Plan of Treatment Upcoming Encounters Date Type Department Care Team (Late st Contact Info) Description 01/05/2025 10:00 AM EDT Office Visit [facility] [address] [place] [address] Donny Sr MD [address] [place] [address] (Fax) 04/06/2025 4:00 PM EDT Office Visit [facility] [address] [place] [address] Donny Sr MD [address] [place] [address] (Fax) 06/09/2025 3:25 PM EST Office Visit [facility] [address] [place] [address] Jada Up, 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 [address] [place] [address] 10/31/2025 3:05 PM EDT Office Visit [facility] [address] [place] [address] Jada Up, 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 [address] [place] [address] Health Maintenance Due Date Last Done Comments CT Colonography 1966 FIT 1966 FOBT 1966 Sigmoidoscopy 1966 Colonoscopy 04/28/2018 04/28/2008 Influenza Vaccine (Season Ended) 2025 04/25/2021, 04/13/2020, 06/09/2018 Colorectal Cancer Screening 01/04/2027 FIT-DNA 01/04/2027 01/05/2024 Procedures Procedure Name Priority Date/Time Associated Diagnosis Comments SKIN / NAIL BIOPSY Routine 11/22/2024 4: 10 PM EDT Rash and other nonspecific skin eruption DERMATOPATHOLOGY EXAM Routine 11/22/2024 12:00 AM EDT Rash and other nonspecific skin eruption LAB COLOGUARD COLON CANCER SCREEN Routine 01/05/2024 8:45 AM EDT Encounter for screening for malignant neoplasm of colon from Last 3 Months or Most Recently Relevant to Health Maintenance Results * Lesion biopsy (11/22/2024 4:10 PM EDT) Narrative Rosalba Tucker MA - 11/22/2024 4:10 PM EDT Type of biopsy: punch Informed consent: discussed [...] 2 Specimen sent for: H&E Photo taken Jada Up 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 DERM PROCEDURE ORDERAB LES Final Result * Dermatopathology exam (11/22/2024 12:00 AM EDT) SPECIMEN TYPE SPECIMEN: RIGHT LOWER BACK [facility] ICD10 Code L30.9 [facility] PROTOCOL P - PUNCH [facility] Final Diagnosis SPONGIOTIC DERMATITIS. COMMENT: The features are most suggestive of an eczematous dermatitis including nummular dermatitis, contact dermatitis, id reaction, and eczematous drug reaction. Clinical correlation is recommended. [facility] Gross Text [facility] Microscopic Description One original slide and subsequent multiple deeper sections were evaluated. Sections show a bisected punch biopsy specimen revealing compact hyperkeratosis and parakeratosis with areas of intracorneal serum deposition. The epidermis is slightly acanthotic with spongiosis. There is a subjacent superficial dermal perivascular lymphocytic infiltrate without eosinophils. PAS stain with adequate controls is negative for fungal organisms. [facility] CPT 50074*1 83401*1 [facility] Skin Topography unknown / Unknown 11/22/2024 4:10 PM EDT Comment:Differential Diagnos is: Drug eruption vs other Jada Up 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 LAB PATHOLOGY ORDERABL ES Final Result [facility] * Cologuard?? colon cancer screening (01/05/2024 8:45 AM EDT) NONINV COLON CA DNA+OCC BLD SCRN STL-IMP Negative Negative 01/09/2024 10:15 AM EDT [employer] (CLIA #:[id number]) Comment: NEGATIVE TEST RESULT. A negative Cologuard result indicates a low likelihood that a colorectal cancer (CRC) or advanced adenoma (adenomatous polyps with more advanced pre-malignant features) is present. The chance that a person with a negative Cologuard test has a colorectal cancer is less than 1 in 1500 (negative predictive value >99.9%) or has an advanced adenoma is less than 5.3% (negative predictive value 94.7%). These data are based on a prospective cross-sectional study of 10,000 individuals at average risk for colorectal cancer who were screened with both Cologuard and colonoscopy. (Karel Petty al, N Engl J Med 2014;370(14):6496-4629) The normal value (reference range) for this assay is negative. COLOGUARD RE-SCREENING RECOMMENDATION: Periodic colorectal cancer screening is an important part of preventive healthcare for asymptomatic individuals at average risk for colorectal cancer. Following a negative Cologuard result, the [place] [employer] and U.S. Multi-Society Task Force screening guidelines recommend a Cologuard re-screening interval of 3 years. References: [place] [employer] Guideline for Colorectal Cancer Screening: https://www.cancer.org/cancer/nnlzj-twzkky-btizyx/wrelocfbb-jtruedyow-uqplpbt/ac s-rec ommendations.html.; Jorge DK, Nadine HEREDIA, Kevin OwensK, Colorectal Cancer Screening: Recommendations for Physicians and Patients from the U.S. Multi-Society Task Force on Colorectal Cancer Screening , Am J Gastroenterology 2017; 112:1235-2129. TEST DESCRIPTION: Composite algorithmic analysis of stool DNA-biomarkers with hemoglobin immunoassay. Quantitative values of individual biomarkers are not reportable and are not associated with individual biomarker result reference ranges. Cologuard is intended for colorectal cancer screening of adults of either sex, 45 years or older, who are at average-risk for colorectal cancer (CRC). Cologuard has been approved for use by the U.S. FDA. The performance of Cologuard was established in a cross sectional study of average-risk adults aged 50-84. Cologuard performance in patients ages 45 to 49 years was estimated by sub-group analysis of near-age groups. Colonoscopies performed for a positive result may find as the most clinically significant lesion: colorectal cancer [4.0%], advanced adenoma (including sessile serrated polyps greater than or equal to 1cm diameter) [20%] or non- advanced adenoma [31%]; or no colorectal neoplasia [45%]. These estimates are derived from a prospective cross-sectional screening study of 10,000 individuals at average risk for colorectal cancer who were screened with both Cologuard and colonoscopy. (Karel Petty al, N Engl J Med 2014;370(14):5672-5792.) Cologuard may produce a false negative or false positive result (no colorectal cancer or precancerous polyp present at colonoscopy follow up). A negative Cologuard test result does not guarantee the absence of CRC or advanced adenoma (pre-cancer). The current Cologuard screening interval is every 3 years. ([place] [employer] and U.S. Multi-Society Task Force). Cologuard performance data in a 10,000 patient pivotal study using colonoscopy as the reference method can be accessed at the following location: www.[employer] (TMG)/results. Additional description of the Cologuard test process, warnings and precautions can be found at www.cologuard.com. Stool specimen (specimen) 01/05/2024 8:45 AM EDT 01/06/2024 7:53 AM EDT Donny Sr MD LAB MOLECULAR DIAGNOSTICS OR DERABLES Final Result .[employer] (CLIA #:[id number]) [address] [address], [employer] (CLIA #:[id number]) [address] [address] from Last 3 Months or Most Recently Relevant to Health Maintenance Insurance [employer] Care Teams Frame Sample And Pattern Supervisor Relationship Specialty Start Date End Date Donny Sr MD [address] [address] PCP - General Family Medicine 05/20/24
--- OUTSIDE RECORDS SUMMARY | 2025-01-05 06:45 | XMS_ITS | Encounter Summary ---
Author Organization [facility] Address [address] [place] [address] Care Team Providers Care Coal Tower Operator Name Role Phone Donny Sr MD Primary Care Provider [phone] Reason for Visit * Reason Comments Med Refill Encounter Details Date Type Department Care Team (Late st Contact Info) Description 01/04/2025 Refill [facility] [address] [place] [address] Donny Sr MD [address] [place] [address] Hyperuricemia; Benign essential hypertension Social History Tobacco Use Types Packs/Day Years Used Date Smoking Tobacco: Never Smokeless Tobacco: Former Snuff Quit: 10/20/2011 Alcohol Use Standard Drinks/Week Comments Yes 12 [...] often do you attend chur ch or yazidi services? Never 09/29/2024 Do you belong to any clubs o r organizations such as evangelical groups, unions, fraternal or athletic groups, or [...] and heating? Not hard at all 09/29/2024 [facility] of Occupat ional Health - Occupational Stress [...] place to sleep or slept in a long term (including now)? No 03/20/2023 Housing Stability Vital Sign Answer Jong e Recorded In the last 12 months, was t here a time when you were not able to pay the mortgage or rent on time? No 09/29/2024 Number of Times Moved in the Last Year Not on fi le 09/29/2024 At any time in the past 12 m [facility], were you homeless or living in a long term (including now)? No 09/29/2024 Sex and Gender Information Value Date Recorded Sex Assigned at Not on file Legal Sex Male 7:03 PM EDT Gender Identity Not on file Sexual Orientation Not on file documented as of this encounter Plan of Treatment Upcoming Encounters Date Type Department Care Team (Late st Contact Info) Description 01/05/2025 10:00 AM EDT Office Visit [facility] [address] [place] [address] Donny Sr MD [address] [facility] [address] [place] [address] (Fax) 04/06/2025 4:00 PM EDT Office Visit [facility] [address] [place] [address] Donny Sr MD [address] [place] [address] (Fax) 06/09/2025 3:25 PM EST Office Visit [facility] [address] [place] [address] Jada Up, LOOSELEAF BINDER COVERER-PANTOMIMIST [address] [place] [address] 10/31/2025 3:05 PM EDT Office Visit [facility] [address] [place] [address] Jada Up, LOOSELEAF BINDER COVERER-PANTOMIMIST [address] [place] [address] documented as of this encounter Visit Diagnoses Diagnosis Hyperuricemia Other abnormal blood chemistry Benign essential hypertension Essential hypertension, benign documented in this encounter Care Teams Coal Tower Operator Relationship Specialty Start Date End Date Donny Sr MD [address] [place] [address] (Fax) PCP - General Family Medicine 05/20/24 documented as of this encounter
--- OUTSIDE RECORDS SUMMARY | 2025-01-05 06:45 | XMS_ITS | Clinical Summary ---
Author Organization [facility] Address [address] [place] [address] Care Team Providers Care Operation Research Analyst Name Role Phone Donny Sr MD Primary Care Provider [phone] Allergies Active Allergy Reactions Criticality Noted Date [...] complete this topic Insurance [employer] Care Teams Operation Research Analyst Relationship Specialty Start Date End Date Donny Sr MD [address] [place] [address] PCP - General 07/19/24
--- OUTSIDE RECORDS SUMMARY | 2025-01-05 06:45 | XMS_ITS | Encounter Summary ---
Author Organization [facility] Address [address] [place] [address] Care Team Providers Care Casket Trimmer Name Role Phone Donny Sr MD Primary Care Provider [phone] Donny Sr MD Primary Care Provider [phone] Encounter Details Date Type Department Care Team (Late st Contact Info) Description 04/19/2024 Orders Only [facility] [address] [place] [address] Donny Sr MD [address] [place] [address] Social History Tobacco Use Types Packs/Day Years Used Date Smoking Tobacco: Never Smokeless Tobacco: Former Snuff Quit: 10/20/2011 Alcohol Use Standard Drinks/Week Comments Yes 12 (1 standard drink = 0.6 oz pu re alcohol) Humiliation, Afraid, Rape, and Kick questionnair e [...] the phone with family, friends, or neighbors? Patient declined 03/20/2023 How often do you get togethe r with friends or relatives? Twice a week 03/20/2023 How often do you attend roman catholic or amish serv ices? Patient declined 03/20/2023 Do you belong to any clubs o r organizations such as roman catholic groups, unions, fraternal or athletic groups, or school groups? Yes 03/20/2023 How often do you attend meet ings of the clubs or organizations you belong to? Patient declined 03/20/2023 Are you , , di vorced, , never , or living with a partner? 03/20/2023 AUDIT-C Answer Date Recorded Q1: How often do you have a drink containing alc ohol? 2-3 times a week 03/20/2023 Q2: How many drinks containi ng alcohol do you have on a typical day when you are drinking? 5 or 6 03/20/2023 Q3: How often do you have si x or more drinks on one occasion? Monthly 03/20/2023 Overall Financial Resource Strain (CARDIA) Answe r Date Recorded How hard is it for you to pa y for the very basics like food, housing, medical care, and heating? Not very hard 03/20/2023 [facility] of Occupat ional Health - Occupational Stress Questionnaire Answer Date Recorded Do you feel stress - tense, restless, nervous, or anxious, or unable to sleep at night because your mind is troubled all the time - these days? Not at all 03/20/2023 Exercise Vital Sign Answer Date Recorde d On average, how many days pe r week do you engage in moderate to strenuous exercise (like a brisk walk)? 5 days 03/20/2023 On average, how many minutes do you engage in exercise at this level? 20 min 03/20/2023 Hunger Vital Sign Answer Date Recorded Within the past 12 months, y ou worried that your food would run out before you got the money to buy more. Patient declined Within the past 12 months, t he food you bought just didn't last and you didn't have money to get more. Never true PRAPARE - Transportation Answer Date Re corded In the past 12 months, has l ack of transportation kept you from medical appointments or from getting medications? No 02/20 In the past 12 months, has l ack of transportation kept you from meetings, work, or from getting things needed for daily living? No 03/20/2023 Housing Stability Vital Sign Answer [...] place to sleep or slept in a half-way (including now)? No 03/20/2023 Sex and Gender Information Value Date Recorded [...] [address] [place] [address] Donny Sr MD [address] [place] [address] (Fax) 04/06/2025 4:00 PM EDT Office Visit [facility] [address] [place] [address] Donny Sr MD [address] [place] [address] (Fax) 06/09/2025 3:25 PM EST Office Visit [facility] [address] [place] [address] Jada Up, DEPARTMENT SALES MANAGER-WET PROCESS OPERATOR [address] [place] [address] 10/31/2025 3:05 PM EDT Office Visit [facility] [address] [place] [address] Jeovanny Jada Keiko, DEPARTMENT SALES MANAGER-WET PROCESS OPERATOR [address] [place] [address] documented as of this encounter Visit Diagnoses Not on filedocumented in this encounter Care Teams Casket Trimmer Relationship Specialty Start Date End Date Donny Sr MD PCP - General Family Medicine 01/30/23 05/19/24 Donny Sr MD [address] [facility] [address] [place] [address] PCP - General Family Medicine 05/20/24 documented as of this encounter
--- OUTSIDE RECORDS SUMMARY | 2025-01-05 06:45 | XMS_ITS | Encounter Summary ---
Author Organization [facility] Address [address] [place] [address] Care Team Providers Care Membership Assistant Name Role Phone Donny Sr MD Primary Care Provider + [phone] Encounter Details Date Type Department Care Team (Late st Contact Info) Description 11/29/2024 Results Follow-Up [facility] [address] [place] [address] Jada Up, CURLING MACHINE OPERATOR-AIR CONDITIONING MANAGER [address] [facility] [address] [place] [address] Social History Tobacco Use Types Packs/Day Years [...] often do you attend chur ch or mandaeism services? Never 09/29/2024 Do you belong to any clubs o r organizations such as oriental orthodox groups, unions, fraternal or athletic groups, or [...] and heating? Not hard at all 09/29/2024 [facility] [place] of Occupat ional Health - Occupational Stress [...] place to sleep or slept in a fpc (including now)? No 03/20/2023 Housing Stability Vital Sign Answer Jong e Recorded In the last 12 months, was t here a time when you were not able to pay the mortgage or rent on time? No 09/29/2024 Number of Times Moved in the Last Year Not on fi le 09/29/2024 At any time in the past 12 m [facility], were you homeless or living in a fpc (including now)? No 09/29/2024 Sex and Gender [...] [address] [place] [address] Donny Sr MD [address] [place] [address] 04/06/2025 4:00 PM EDT Office Visit [facility] [address] [place] [address] Donny Sr MD [address] [place] [address] 06/09/2025 3:25 PM EST Office Visit [facility] [address] [place] [address] Jada Up, CURLING MACHINE OPERATOR-AIR CONDITIONING MANAGER [address] [place] [address] 10/31/2025 3:05 PM EDT Office Visit [facility] [address] [place] [address] Jada Up, CURLING MACHINE OPERATOR-AIR CONDITIONING MANAGER [address] [place] [address] documented as of this encounter Visit Diagnoses Not on filedocumented in this encounter Care Teams Membership Assistant Relationship Specialty Start Date End Date Donny Sr MD [address] [place] [address] PCP - General Family Medicine 05/20/24 documented as of this encounter
--- OUTSIDE RECORDS SUMMARY | 2025-01-05 06:45 | XMS_ITS | Encounter Summary ---
Author Organization [facility] Address [address] [place] [address] Care Team Providers Care High School Assistant Principal Name Role Phone Donny Sr MD Primary Care Provider [phone] Reason for Visit * Reason Onset Date Comments Appointment Request 01/04/2025 Encounter Details Date Type Department Care Team (Late st Contact Info) Description 01/04/2025 Telephone [facility] [address] [place] [address] Rosalba Khan, ARMIN Appointment Request Social History Tobacco Use Types Packs/Day Years [...] 09/29/2024 How often do you attend chur or moravian services? Never 09/29/2024 Do you belong to any clubs o r organizations such as voodoo groups, unions, fraternal or athletic groups, or [...] and heating? Not hard at all 09/29/2024 [facility] [place] of Occupat ional Health - Occupational Stress [...] place to sleep or slept in a mcfp (including now)? No 03/20/2023 Housing Stability Vital Sign Answer Jong e Recorded In the last 12 months, was t here a time when you were not able to pay the mortgage or rent on time? No 09/29/2024 Number of Times Moved in the Last Year Not on fi le 09/29/2024 At any time in the past 12 m [facility], were you homeless or living in a mcfp (including now)? No 09/29/2024 Sex and Gender Information Value Date Recorded Sex Assigned at Not on file Legal Sex Male 7:03 PM EDT Gender Identity Not on file Sexual Orientation Not on file documented as of this encounter Miscellaneous Notes * Telephone Encounter - Rosalba Khan RN - 01/04/2025 1:39 PM EDT Done * Telephone Encounter - Rosalba Khan RN - 01/04/2025 1:15 PM EDT Pt LVM requesting an OV for stomach pain. Spoke with pt. Pt states he had this before and Dr. Sr gave him something that helped. No c/o nausea, vomiting or diarrhea, states it's just pain. He has been taking pepto which seems to help but he doesn't want to take it all the time. First availableOV that would work for him was not until next Friday at 4:30. Any recommendations for him? documented in this encounter Plan of Treatment Upcoming Encounters Date Type Department Care Team (Late st Contact Info) Description 01/05/2025 10:00 AM EDT Office Visit [facility] [address] [place] [address] Donny Sr MD [address] [place] [address] 04/06/2025 4:00 PM EDT Office Visit [facility] [address] [facility] [address] [place] [address] Donny Sr MD [address] [place] [address] (Fax) 06/09/2025 3:25 PM EST Office Visit [facility] [address] [place] [address] Jada Up, HAND BULLDOZER-DIVORCE ATTORNEY [address] [place] [address] 10/31/2025 3:05 PM EDT Office Visit [facility] [address] [place] [address] Jada Up, HAND BULLDOZER-DIVORCE ATTORNEY [address] [place] [address] documented as of this encounter Visit Diagnoses Not on filedocumented in this encounter Care Teams High School Assistant Principal Relationship Specialty Start Date End Date Donny Sr MD [address] [place] [address] PCP - General Family Medicine 05/20/24 documented as of this encounter
--- OUTSIDE RECORDS SUMMARY | 2025-01-05 06:45 | XMS_ITS | Referral Summary ---
Author Organization [facility] Address [address] [place] [address] Care Team Providers Care Marketing Services Rep Name Role Phone Donny Sr MD Primary Care Provider [phone] Allergies Active Allergy Reactions Criticality Noted Date [...] 08/31/2024 8:48 AM EST Plan of Treatment Not on file Insurance [employer] Care Teams Marketing Services Rep Relationship Specialty Start Date End Date Donny Sr MD [address] [place] [address] PCP - General 07/19/24
--- OUTSIDE RECORDS SUMMARY | 2025-01-05 06:45 | XMS_ITS | Encounter Summary ---
Author Organization [facility] Address [address] [place] [address] Care Team Providers Care Blackjack Dealer Name Role Phone Donny Sr MD Primary Care Provider [phone] Reason for Visit * Reason Comments Med Refill Encounter Details Date Type Department Care Team (Late st Contact Info) Description 10/04/2024 Refill [facility] [address] [place] [address] Donny Sr MD [address] [place] [address] Benign essential hypertension ; Hyperuricemia Social History Tobacco Use Types Packs/Day Years [...] often do you attend chur ch or rastafari services? Never 09/29/2024 Do you belong to any clubs o r organizations such as islam groups, unions, fraternal or athletic groups, or [...] and heating? Not hard at all 09/29/2024 [facility] [place] of Occupat ional Health - Occupational Stress [...] place to sleep or slept in a fdc (including now)? No 03/20/2023 Housing Stability Vital Sign Answer Jong e Recorded In the last 12 months, was t here a time when you were not able to pay the mortgage or rent on time? No 09/29/2024 Number of Times Moved in the Last Year Not on fi le 09/29/2024 At any time in the past 12 m [facility], were you homeless or living in a fdc (including now)? No 09/29/2024 Sex and Gender [...] [address] [place] [address] Donny Sr MD [address] [facility] [address] [place] [address] (Fax) 04/06/2025 4:00 PM EDT Office Visit [facility] [address] [place] [address] Donny Sr MD [address] [place] [address] (Fax) 06/09/2025 3:25 PM EST Office Visit [facility] [address] [place] [address] Jada Up, MANAGER TELEMARKETING-COAL AND ASH SUPERVISOR [address] [place] [address] 10/31/2025 3:05 PM EDT Office Visit [facility] [address] [place] [address] Jada Up, MANAGER TELEMARKETING-COAL AND ASH SUPERVISOR [address] [place] [address] documented as of this encounter Visit Diagnoses Diagnosis Benign essential hypertension Essential hypertension, benign Hyperuricemia Other abnormal blood chemistry documented in this encounter Care Teams Blackjack Dealer Relationship Specialty Start Date End Date Donny Sr MD [address] [place] [address] (Fax) PCP - General Family Medicine 05/20/24 documented as of this encounter
--- OUTSIDE RECORDS SUMMARY | 2025-01-05 06:45 | XMS_ITS | Encounter Summary ---
Author Organization [facility] Address [address] [facility] [place] [address] Care Team Providers Care Shop Repairer Name Role Phone Donny Sr MD Primary Care Provider + [phone] Donny Sr MD Primary Care Provider + [phone] Reason for Visit * Reason Comments Med Refill Encounter Details Date Type Department Care Team (Late st Contact Info) Description 04/07/2024 Refill [facility] [address] [place] [phone] Donny Sr MD [address] [facility] [address] [place] [address] (Fax) Allergic reaction to drug, initial encounter (Primary Dx); Benign essential hypertension Social History Tobacco Use [...] week 03/20/2023 How often do you attend sabianist or buddhism serv ices? Patient declined 03/20/2023 Do you belong to any clubs o r organizations such as sabianist groups, unions, fraAugmate or athletic groups, or school groups? Yes [...] care, and heating? Not very hard 03/20/2023 [facility] of Occupat ional Health - Occupational Stress [...] place to sleep or slept in a penitentiary (including now)? No 03/20/2023 Sex and Gender Information Value Date Recorded Sex Assigned at Not on file Legal Sex Male 7:03 PM EDT Gender Identity Not on file Sexual Orientation Not on file documented as of this encounter Miscellaneous Notes * Telephone Encounter - Karma Waterman - 04/19/2024 1:48 PM EDT Lawrence's Ольга called, He could not get through on . Lawrence was put on a new medication for his gout flare. He started breaking out in a rash and began having stomach pain after he started the medication. He stopped the medication and I made him an appointment tomorrow to take a look at what was going on. She states he is still in a lot of pain with the gout and called off work due to the pain. documented in this encounter Plan of Treatment Upcoming Encounters Date Type Department Care Team (Late st Contact Info) Description 01/05/2025 10:00 AM EDT Office Visit [facility] [address] [place] [address] Donny Sr MD [address] [place] [address] (Fax) 04/06/2025 4:00 PM EDT Office Visit [facility] [address] [place] [address] Donny Sr MD [address] [place] [address] (Fax) 06/09/2025 3:25 PM EST Office Visit [facility] [address] [place] [address] Jada Up, SENIOR INFORMATION SECURITY ANALYST-ENGINE INSTALLER [address] [place] [address] 10/31/2025 3:05 PM EDT Office Visit [facility] [address] [place] [address] Jada Up, SENIOR INFORMATION SECURITY ANALYST-ENGINE INSTALLER [address] [place] [address] documented as of this encounter Visit Diagnoses Diagnosis Allergic reaction to drug, initial encounter- Primary Benign essential hypertension Essential hypertension, benign documented in this encounter Care Teams Shop Repairer Relationship Specialty Start Date End Date Donny Sr MD (Fax) PCP - General Family Medicine 01/30/23 05/19/24 Donny Sr MD [address] [place] [address] (Fax) PCP - General Family Medicine 05/20/24 documented as of this encounter
[2025-01-05 07:38] LABS: Glucometer 95 mg/dL (74-106)
--- NOTE | 2025-01-05 09:15 | CM.NOTE ---
Rounds made with Dr. Larios, discussed with pt diagnosis, AM labs, and CT scan. Pt will have R upper quad ultrasound this AM. No discharge today.
--- NOTE | 2025-01-05 09:36 | US_ITS ---
The [address] [address] Patient Name: MORRIS OLIVAREZ MRN: [id number] date: 1965 Sex: M Assigned Patient Location: Current Patient Location: [place] Accession/Order Number: [id number] Exam Date: 01/05/2025 11:05 Report Date: 01/05/2025 11:10 At the request of: WILI FOUNTAIN MD Procedure: US right upper quadrant LIMITED RIGHT UPPER QUADRANT ABDOMINAL ULTRASOUND CLINICAL HISTORY: Right upper quadrant pain for the past 3 days. Study to assess for gallstone pancreatitis COMPARISON: CT 01/04/2025 The gallbladder is physiologically distended. There are multiple small echogenic, nonshadowing foci within the gallbladder. This could be sludge and/or small stones. There is thickening of the gallbladder wall. No pericholecystic fluid is seen. No intra- or extrahepatic biliary dilatation is evident. The common duct measures 3 - 4 mm. The liver is normal in echogenicity. No intrahepatic masses are seen. There is appropriate hepatopetal flow within the main portal vein. The visualized portions of the pancreas shows no significant sonographic abnormality. Cursory evaluation of the right kidney reveals no hydronephrosis or fluid within Babin's pouch. US/US right upper quadrant IMPRESSION: GALLBLADDER SLUDGE AND/OR STONES WELL GALLBLADDER WALL THICKENING. CORRELATION AND FOLLOW-UP ARE SUGGESTED TO EXCLUDE THE POSSIBILITY OF ACUTE CHOLECYSTITIS. NO OTHER ACUTE RIGHT UPPER QUADRANT FINDINGS Impression dictated by: Vanita Macias M.D. 01/05/2025 11:10 AM Dictation Location: [place] [address] Electronically authenticated by: [id number] Y Date: 01/05/2025 11:10
--- NOTE | 2025-01-05 10:00 | CM.NOTE ---
Updated pt to continue NPO status for MRCP per Dr. Larios.
[2025-01-05 10:15] LABS: INR 1.06; Prothrombin Time 11.2 sec (9.0-11.6)
[2025-01-05] MEDS: 0.9 % SODIUM CHLORIDE 1,000 ML 100 ML IV (11:41)
[2025-01-05] MEDS: FOLIC ACID 1 MG TABLET PO (11:42)
[2025-01-05] MEDS: PANTOPRAZOLE SODIUM 40 MG VIAL IV (11:42)
--- NOTE | 2025-01-05 11:44 | PM.IMHP1 ---
Internal Medicine - H&P: HPI History of Present Illness Chief complaint: ABDOMINAL PAIN, PANCREATITIS Narrative: I am writing the H&P for this patient was started by my colleague as an overnight admission. I am involved with his care since this morning. This is when I took over his care. Orders were placed by my colleague on admission overnight. So, this is a 59-year-old male with past medical history of hypertension, gout, alcohol use last drink was 3 days ago more than 8 beers. He presents to the hospital with abdominal pain of 3 days duration. History obtained from the patient and his at bedside. He states that 3 days ago started complaining of epigastric pain, sharp in nature no radiation referral, associate with anorexia with no nausea or vomiting or fever or chills. The pain was intermittent improved on Friday and then on Friday came back and became constant then he decided to come to the hospital for further workup and management. He says that he has been drinking alcohol for a long time with around 6 beers on average but not on a daily basis. His last drink was Friday when he drank a lot . In the ED patient's blood pressure was normal he did have normal heart rate and he was saturating 95% on room air. His labs in the ED showed no leukocytosis but showed elevated LFTs AST with 713 and ALT of 616. Lipase was 2228. Triglyceride was just 69. CT abdomen pelvis was negative for acute intra-abdominal pathology and normal appendix in the right lower quadrant. There was no free fluid or free air. 01/05/25 I took over this care today. He is lying in bed stating that his pain is better than yesterday. He denies any fever or chills or nausea or vomiting at night. His labs are showing small improvement in his LFTs, with normalization of his bilirubin level. Slightly elevated ALP. His CIWA today was 0. He was a little agitated with the staff but otherwise I did not objectively find alcohol drawl symptoms. He is not in acute distress and he is hemodynamic stable Review of Systems ROS Narrative Negative except for what's written in the H and P Status of ROS 10 or more systems reviewed and unremarkable except as noted in history and below [facility] Medical History (Updated 01/05/25 @ 11:57 by Brian Larios MD) Gout ?M10.9 - Gout, unspecified (ICD-10) HTN (hypertension) ?I10 - Essential (primary) hypertension (ICD-10) Family History (Updated 01/05/25 @ 00:53 by Olivia Long) Other Family history of diabetes mellitus Family history of hypertension Family history of myocardial infarction Social History (Updated 01/05/25 @ 00:55 by Olivia Long) Within the past year, how often did you have a drink containing alcohol: 4 or more times a week Within the past year, how many standard drinks containing alcohol did you have on a typical day: 5 or 6 Within the past year, how often did you have six or more drinks on one occasion: weekly Total score: 7 Score interpretation: A score of 4 or more indicates drinking is likely to affect patient's safety. Smoking status: Never smoker Non-prescribed substance use: denies use Previous occupational history: [employer] Highest level of school completed/degree received: high school graduate Are you now , , , , never or living with a partner: In a typical week, how many times do you talk on the telephone with family, friends, or neighbors: 3 or more times per week How often do you get together with friends or relatives: 3 or more times per week Little interest or pleasure in doing things: not at all Feeling down, depressed, or hopeless: not at all Feel stressed/tense/nervous/anxious/difficulty sleeping: not at all Do you think of yourself as: straight/heterosexual Gender Identity: male Meds Home Medications and Allergies Home Medications ?Medication ?Instructions ?Recorded ?Confirmed ?Type allopurinol 300 mg tablet 300 mg PO DAILY 01/05/25 01/05/25 History metoprolol tartrate 25 mg tablet 25 mg PO Q12H 01/05/25 01/05/25 History Allergies Allergy/AdvReac Type Severity Reaction Status Date / Time No Known Drug Allergies Allergy Verified 01/04/25 22:19 Exam Narrative Exam Narrative: Common normals: average body habitus, oriented x3, no limitations, healthy appearing, alert and well nourished General appearance: Not in pain or distress on my encounter [facility] Common normals: normocephalic and head/scalp atraumatic Respiratory Common normals: normal respiratory effort, no retractions, no use of accessory muscles and clear to auscultation bilaterally Cardio Common normals: regular rate, regular rhythm, S1 normal heart sound and S2 normal heart sound GI Other: mild epigastric tenderness. No guarding, negative Mcburny and negative Cisneros's sign on exam Extremity Common normals: normal to inspection and full ROM Neuro Common normals: oriented x3, CN's II-XII intact bilaterally, moves all extremities and no focal motor deficits. CIWA is 0 Constitutional Vital Signs, click to edit/add: Last Vital Signs Temp 98.4 F 01/05/25 07:29 Pulse 63 01/05/25 07:29 Resp 16 01/05/25 07:29 BP 144/84 H 01/05/25 07:29 Pulse Ox 95 01/05/25 11:15 O2 Del Method Room Air 01/05/25 11:15 Internal Medicine - H&P: Reslt Labs Labs: Short CBC 01/04/25 01/05/25 Range/Units 22:35 04:38 WBC 9.3 6.8 (4.0-11.0) 10^3/uL Hgb 16.4 15.6 (14.0-18.0) g/dL Hct 46.9 45.9 (42.0-54.0) % Plt Count 146 L 150 (150-450) 10^3/uL BMP 01/04/25 01/05/25 22:35 04:38 Sodium 140 139 Potassium 3.2 L 4.0 Chloride 102 103 Carbon Dioxide 25.2 24.0 BUN 14.0 11.0 Creatinine 0.96 0.84 Glucose 137 H 108 H Calcium 9.3 8.9 Liver Function 01/04/25 01/05/25 Range/Units 22:35 04:38 Total Bilirubin 2.4 H 1.0 (0.2-1.0) mg/dL AST 713 H* 515 H* (15-37) U/L ALT 616 H* 644 H* (16-63) U/L Alkaline Phosphatase 193 H 184 H (46-116) U/L Albumin 3.9 3.6 (3.4-5.0) g/dL Urine 01/05/25 Range/Units 01:20 Urine Color Yellow (YELLOW) Urine Clarity Clear (CLEAR) Urine pH 6.5 (5.0-9.0) Ur Specific [place] <=1.005 A (1.005-1.025) Urine Protein Negative (NEG/TRACE) mg/dL Urine Glucose (UA) Negative (NEGATIVE) mg/dL Assessment and Plan Assessment and Plan (1) Pancreatitis: Qualifiers: Chronicity: acute Pancreatitis type: alcohol induced Acute pancreatitis complication: no infection or necrosis Qualified Code(s): K85.20 - Alcohol induced acute pancreatitis without necrosis or infection (2) Gallstone pancreatitis: Plan Acute Pancreatitis, likely Alcoholic vs Gallstone pancreatitis Acute cholecystitis is less likely given the patient's exam and absence of leukocytosis or fever Elevated LFTs, rule out hepatitis -Pt's HPI, physical exam findings, and labs and imaging results were reviewed -Will switch Fluids to IV NS 100 ml/hr for another 2 liters -Obtain hepatitis panel -I reviewed the right upper quadrant ultrasound, will consult general surgery in house however patient is less likely cholecystitis given his symptomatology as well as his lab findings -Obtain MRCP -N.p.o. for now and will advance diet after the MRCP is done and advance as tolerated -Patient was counseled extensively on alcohol cessation, I started him [facility] protocol for now -IV Zofran 4 mg every 8 hour as needed for nausea and vomiting - I discussed details with the patient and his . Answered all the questions.
--- NOTE | 2025-01-05 11:55 | MR_ITS ---
The [address] [address] Patient Name: MORRIS OLIVAREZ MRN: [id number] date: 1965 Sex: M Assigned Patient Location: MS Current Patient Location: [place] Accession/Order Number: [id number] Exam Date: 01/05/2025 14:26 Report Date: 01/05/2025 14:29 At the request of: WILI FOUNTAIN MD Procedure: MR abdomen wo con MRI OF THE ABDOMEN WITHOUT CONTRAST: MRCP CLINICAL HISTORY: Epigastric pain for 3 months. COMPARISON: CT abdomen and pelvis 01/04/2025 TECHNIQUE: Multisequence, multiplanar imaging of the abdomen was obtained without the use of IV contrast. MRCP imaging was obtained. FINDINGS: The liver appears normal in contour without evidence of steatosis or intrahepatic bile duct dilatation. No T2 abnormality seen to suggest underlying mass. Cholelithiasis is present with gallbladder wall thickening/edema. MRCP imaging demonstrate normal caliber CBD without evidence of choledocholithiasis. No pancreatic duct dilatation. Pancreas is grossly unremarkable. Spleen appears unremarkable. Adrenal glands unremarkable. Kidneys demonstrate no hydronephrosis. Abdominal aorta appears normal in caliber. No bulky lymphadenopathy or ascites. No pleural effusion. MR/MR abdomen wo con IMPRESSION: CHOLELITHIASIS WITH WALL THICKENING/EDEMA SUSPICIOUS FOR ACUTE CHOLECYSTITIS. NO CBD DILATATION OR CHOLEDOCHOLITHIASIS. Impression dictated by: Stewart Arndt Jr., D.O. 01/05/2025 2:29 PM Dictation Location: [place] [address] Electronically authenticated by: [id number] Y Date: 01/05/2025 14:29
[2025-01-05 12:07] LABS: Glucometer 82 mg/dL (74-106)
[2025-01-05 12:40] LABS: Bilirubin Direct 0.3 mg/dL (0.0-0.2)
[2025-01-05] MEDS: CEFTRIAXONE 1,000 MG in 0.9 % SODIUM CHLORIDE 50 ML 100 MG IV (13:32)
[2025-01-05] MEDS: METRONIDAZOLE/SODIUM CHLORIDE 500 MG/100 ML PREMIX 100 MG IV (14:16)
[2025-01-05] MEDS: METOPROLOL TARTRATE 25 MG TABLET PO (14:16)
--- NOTE | 2025-01-05 21:13 | PC.NURSE ---
Report given to [place] [facility]. RN called report to Abida FUNEZ at 2109. Pt discharged at 2112.
[2025-01-06 05:07] LABS: HBsAg Screen Negative (Negative); HCV Ab Non Reactive (Non Reactive); Hep A Ab, IgM Negative (Negative); Hep B Core Ab, IgM Negative (Negative); Hep B Surface Ab Non Reactive (.)
== END 2025-01-05 21:13 | disposition short-term general hospital (02) | DRG 444 ==
LOC: ER 01-05 00:23 → MS 01-05 06:42
PROVIDERS: Registered Nurse; Admitting Provider Internal Medicine; Emergency Provider Internal Medicine; PCP Family Medicine; Visit Provider Student in an Organized Health Care Education/Training Program
DX: K80.00 Calculus of gallbladder with acute cholecystitis without obstruction (principal); K85.10 Biliary acute pancreatitis without necrosis or infection; K85.20 Alcohol induced acute pancreatitis without necrosis or infection; I10 Essential (primary) hypertension; F10.90 Alcohol use, unspecified, uncomplicated; M10.9 Gout, unspecified
CPT/HCPCS: 36415; 74177; 74181; 76705; 80053; 80074; 80307; 81001; 81003; 82247; 82248; 82948; 83605; 83690; 83735; 84478; 84484; 85025; 85610; 86140; 86706; 94761; 96374; 96375; 99285; J0696; J1171; J1836; J3490; Q9967